=== PATIENT | female | born 1950 | race Caucasian/White ===

== ENCOUNTER 2021-07-17 15:47 | Emergency (ER) | payer MEDICARE, OTHER ==
[~2021-07-17] VITALS: Ht 157.5 cm; Wt 73.0 kg
[2021-07-17] MEDS ORDERED: CYCLOBENZAPRINE HCL 10 MG TABLET PO ONE (16:30)
[2021-07-17 17:06] VITALS: BP 161/79
[2021-07-17 17:14] LABS: APPEARANCE,URINE CLOUDY (CLEAR); BILIRUBIN,URINE NEGATIVE (NEGATIVE); COLOR,URINE YELLOW (YELLOW); GLUCOSE, URINE (UA) NEGATIVE (NEGATIVE); KETONES,URINE NEGATIVE (NEGATIVE); LEUKOCYTE ESTERASE ,URINE MODERATE (NEGATIVE); NITRATE,URINE NEGATIVE (NEGATIVE); OCCULT BLOOD,URINE TRACE-INTACT (NEGATIVE); PH,URINE 5.5 (5.0-8.0); PROTEIN,URINE NEGATIVE (NEGATIVE); UROBILINOGEN,URINE 0.2 mg/dL (0.2-1.0)
[2021-07-17 17:35] LABS: BACTERIA,URINE Moderate /HPF (None Seen); WBC,URINE >100 /HPF (0-1)
[2021-07-17 17:36] LABS: SQUAMOUS EPITHELIAL CELL,UR Rare /HPF (0-2)
[2021-07-17] MEDS ORDERED: CYCL10TA16 PO (17:46)
[2021-07-17] MEDS ORDERED: CEPH500B PO (17:46)
[2021-07-17] MEDS ORDERED: KETO10 PO (17:46)
[2021-07-17] MEDS ORDERED: CEFTRIAXONE 1G VIAL IM ONE (18:00)
[2021-07-17] MEDS ORDERED: CYCLOBENZAPRINE HCL 10 MG TABLET ONE (18:28)
[2021-07-17] MEDS ORDERED: HYDROCODONE/ACETAMINOPHEN 5/325 MG TAB PO ONE (18:30)
[2021-07-17] MEDS ORDERED: KETOROLAC 30MG VIAL (30MG/ML) IM ONE (18:30)
[2021-07-17] MEDS ORDERED: DEXAMETHASONE 4 MG TAB PO SCH (19:00)
[2021-07-17] MEDS ORDERED: CEFTRIAXONE 1G VIAL IVP ONE (19:00)
[2021-08-28] MEDS ORDERED: [UNRECOGNIZED DRUG - OTHER] PO (15:40)
[2021-08-28] MEDS ORDERED: CINN500C PO (15:40)
[2021-08-28] MEDS ORDERED: VITAMIN D2 PO (15:40)
[2021-08-28] MEDS ORDERED: OMEG-148 PO (15:40)
[2021-08-28] MEDS ORDERED: LOSA1TAB54 PO (15:40)
[2021-08-28] MEDS ORDERED: TUMERIC PO (15:40)
[2021-08-28] MEDS ORDERED: ATOR10 PO (15:40)
[2021-08-28] MEDS ORDERED: ATEN100T PO (15:40)
== END 2021-07-17 18:30 | disposition home or self-care (01) ==
LOC: EDH 15:47
DX: N39.0 Urinary tract infection, site not specified (principal); M47.816 Spondylosis without myelopathy or radiculopathy, lumbar region; M54.41 Lumbago with sciatica, right side; I10 Essential (primary) hypertension; E78.00 Pure hypercholesterolemia, unspecified
CPT/HCPCS: 72100; 81001; 87077; 87088; 87186; 96372; 96374; 99284; J0696; J1885; J8540

== ENCOUNTER 2021-08-29 05:35 | Observation (INO) | payer MEDICARE, OTHER ==
[2021-08-28 15:00] VITALS: BP 139/57
[2021-08-28 15:03] LABS: BASOPHILS % (AUTO) 0.8 % (0.0-5.0); EOSINOPHILS % (AUTO) 0.8 % (0.0-8.0); HEMATOCRIT 31.9 % (36-48); LYMPHOCYTES % (AUTO) 21.9 % (21.0-51.0); MEAN CORPUSCULAR HEMOGLOBIN 27.6 pg (27.0-33.0); MEAN CORPUSCULAR HGB CONC 32.6 g/dL (32.0-36.0); MEAN CORPUSCULAR VOLUME 84.6 fL (79-99); MONOCYTES % (AUTO) 8.4 % (3.0-13.0); NEUTROPHILS % (AUTO) 67.6 % (40.0-77.0); PLATELET COUNT (AUTO) 184 K/uL (130-400); RED BLOOD CELL COUNT(AUTO) 3.77 MIL/uL (4.00-5.50); RED CELL DISTRIBUTION WIDTH 14.7 % (11.0-15.5); WHITE BLOOD COUNT (AUTO) 6.3 K/uL (4.8-10.8)
[~2021-08-29] VITALS: Ht 162.6 cm; Wt 74.2 kg
[2021-08-29] VITALS (25 sets, daily range): BP systolic 118–169; BP diastolic 59–84
[~2021-08-29 05:35] MED LIST: ATEN100T PO; ATOR10 PO; CINN500C PO; LOSA1TAB54 PO; OMEG-148 PO; TUMERIC PO; VITAMIN D2 PO; [UNRECOGNIZED DRUG - OTHER] PO
[2021-08-29] MEDS ORDERED: LACTATED RINGERS 1000ML 1,000 ML IV ONE (05:45)
[2021-08-29] MEDS ORDERED: HYDR25TA PO (06:10)
[2021-08-29] MEDS ORDERED: LOSA100T58 PO (06:10)
[2021-08-29] MEDS ORDERED: LIDOCAINE PF 100MG/5ML (2%) SYRINGE 5ML ONE (06:21)
[2021-08-29] MEDS ORDERED: ROCURONIUM 10MG/1ML SYR 10 MG/ML ML ONE (06:22)
[2021-08-29] MEDS ORDERED: MIDAZOLAM HCL 1 MG/ML 2ML VIAL ONE (06:22)
[2021-08-29] MEDS ORDERED: FENTANYL CITRATE PF 50 MCG/1 ML 2ML VIAL ONE (06:22)
[2021-08-29] MEDS ORDERED: PROPOFOL 10 MG/ML 20ML VIAL IV ONE (06:22)
[2021-08-29] MEDS ORDERED: ONDANSETRON 4MG INJ ONE (06:22)
[2021-08-29] MEDS ORDERED: DEXAMETHASONE SOD PHOSPHATE 4 MG/ML 1ML VIAL ONE (07:19)
[2021-08-29] MEDS ORDERED: DEXAMETHASONE SOD PHOSPHATE 10MG/ML 1ML VIAL ONE (07:19)
[2021-08-29] MEDS ORDERED: MEPERIDINE-PF 25 MG/ML SYG ONE ×2 (07:43→09:00)
[2021-08-29] MEDS ORDERED: LACTATED RINGERS 1000ML 1,000 ML IV SCH (08:00)
[2021-08-29] MEDS ORDERED: GLYCOPYRROLATE 1 MG/5 ML SYRINGE ONE (08:09)
[2021-08-29] MEDS ORDERED: NEOSTIGMINE 5MG/5ML SYR IV ONE (08:09)
[2021-08-29] MEDS ORDERED: KETOROLAC 15MG/ML VIAL (15MG/ML) ONE (08:34)
[2021-08-29] MEDS ORDERED: MEPERIDINE-PF 75 MG/ML SYG IM PRN (10:00)
[2021-08-29] MEDS ORDERED: ONDANSETRON 4MG INJ IVP PRN (10:00)
[2021-08-29] MEDS ORDERED: PROMETHAZINE HCL 25 MG/ML 1ML AMPULE IM PRN ×2 (10:00)
[2021-08-29] MEDS ORDERED: IBUPROFEN 600 MG TABLET PO PRN (10:00)
[2021-08-29] MEDS ORDERED: BISACODYL 10 MG SUPP.RECT RC PRN (10:00)
[2021-08-29] MEDS: DEXTROSE 5 %-0.45 % NACL 1,000 ML IV PRN ×2 (10:15→18:04)
[2021-08-29] MEDS: ACETAMINOPHEN WITH CODEINE 1 TAB TAB PO PRN (19:41)
[2021-08-30] MEDS: ACETAMINOPHEN WITH CODEINE 1 TAB TAB PO PRN ×2 (00:39→08:14)
[2021-08-30] MEDS: DEXTROSE 5 %-0.45 % NACL 1,000 ML IV PRN (02:08)
[2021-08-30 04:30] VITALS: BP 125/63
[2021-08-30 06:59] LABS: HEMATOCRIT 30.1 % (36-48); MEAN CORPUSCULAR HEMOGLOBIN 27.2 pg (27.0-33.0); MEAN CORPUSCULAR HGB CONC 31.9 g/dL (32.0-36.0); MEAN CORPUSCULAR VOLUME 85.3 fL (79-99); RED BLOOD CELL COUNT(AUTO) 3.53 MIL/uL (4.00-5.50); RED CELL DISTRIBUTION WIDTH 14.7 % (11.0-15.5); WHITE BLOOD COUNT (AUTO) 9.9 K/uL (4.8-10.8)
[2021-08-30 07:40] VITALS: BP 153/76
[2021-08-30] MEDS: DOCUSATE SODIUM 100 MG CAP PO PRN ×2 (08:14→20:14)
[2021-08-30] MEDS: SIMETHICONE 80 MG TAB.CHEW PO PRN ×2 (08:14→20:14)
[2021-08-30] MEDS ORDERED: NACL NASAL SPRAY 120 SPRAY/BOTTLE NS PRN (08:30)
[2021-08-30] MEDS: LOSARTAN 100 MG TABLET PO SCH (09:02)
[2021-08-30] MEDS: HYDROCHLOROTHIAZIDE 25 MG TABLET PO SCH (09:02)
[2021-08-30] MEDS: FERROUS SULFATE 325 MG TABLET.DR PO SCH ×2 (09:03→20:14)
[2021-08-30 12:00] VITALS: BP 147/67
[2021-08-30] MEDS ORDERED: HYDROCODONE/ACETAMINOPHEN 5/325 MG TAB PO PRN (14:00)
[2021-08-30] MEDS ORDERED: ACETAMINOPHEN WITH CODEINE 1 TAB TAB PO PRN (14:00)
[2021-08-30] MEDS: IBUPROFEN 800 MG TAB PO PRN ×2 (14:13→20:17)
[2021-08-30 16:21] VITALS: BP 154/78
[2021-08-30 19:16] VITALS: BP 129/69
[2021-08-30] MEDS ORDERED: ATENOLOL 50 MG TABLET PO SCH (21:00)
[2021-08-30 23:06] VITALS: BP 116/56
[2021-08-31 03:51] VITALS: BP 125/61
[2021-08-31 07:40] VITALS: BP 137/71
[2021-08-31] MEDS ORDERED: NITROFURANTOIN MONOHYD/M-CRYST 100 MG CAPSULE PO SCH (09:00)
[2021-08-31] MEDS: LOSARTAN 100 MG TABLET PO SCH (09:01)
[2021-08-31] MEDS: FERROUS SULFATE 325 MG TABLET.DR PO SCH (09:01)
[2021-08-31] MEDS: DOCUSATE SODIUM 100 MG CAP PO PRN (09:01)
[2021-08-31] MEDS: SIMETHICONE 80 MG TAB.CHEW PO PRN (09:02)
[2021-08-31] MEDS: IBUPROFEN 800 MG TAB PO PRN (09:04)
[2021-08-31] MEDS: HYDROCHLOROTHIAZIDE 25 MG TABLET PO SCH (09:06)
[2021-08-31] MEDS ORDERED: ACET1TAB25 PO (09:20)
[2021-08-31] MEDS ORDERED: NITR100C4 PO (09:21)
[2021-08-31] MEDS ORDERED: FERR325T22 PO (09:21)
== END 2021-08-31 09:55 | disposition home or self-care (01) ==
LOC: DAH 05:35 → DAHIP 05:36 → WSH 09:10
PROVIDERS: ADMIT Obstetrics & Gynecology; ATTEND Obstetrics & Gynecology
DX: N39.3 Stress incontinence (female) (male) (principal); Z20.822 Contact with and (suspected) exposure to COVID-19; N81.10 Cystocele, unspecified; N81.6 Rectocele; N81.5 Vaginal enterocele; R68.89 Other general symptoms and signs
CPT/HCPCS: 36415 ×2; 57265; 85025; 85027; 86850; 86900; 86901; 87426; 88302; 88305; 96372; A4215; A4221; A4222; A4223; A4315; A4351; A4510; A4600; A4606; A4663; A6260; C1771; G0378 ×46; J1100; J1885; J2001; J2175 ×3; J2250; J2405; J2550; J2704; J2710; J3010; J3490; J7120 ×2

== ENCOUNTER → 2021-10-11 | Outpatient (CLI) | payer MEDICARE, OTHER ==
[~2021-10-11] MED LIST changes: +ACET1TAB25 PO; +FERR325T22 PO; +HYDR25TA PO; +LOSA100T58 PO; -LOSA1TAB54 PO; +NITR100C4 PO
== END | disposition home or self-care (01) ==
LOC: RAH 09:07
PROVIDERS: ATTEND Internal Medicine
DX: K44.9 Diaphragmatic hernia without obstruction or gangrene (principal); K21.9 Gastro-esophageal reflux disease without esophagitis
CPT/HCPCS: 74240

== ENCOUNTER 2023-12-21 03:15 | Inpatient (IN) | payer MEDICARE, OTHER ==
[~2023-12-21] VITALS: Ht 157.5 cm; Wt 75.8 kg
[2023-12-21] VITALS (7 sets, daily range): BP systolic 120–158; BP diastolic 56–76; PULSE 100–120; RESP 17–26; O2SAT 94–98
[~2023-12-21 03:15] MED LIST changes: +ACET-2079 PO; -ACET1TAB25 PO; -LOSA100T58 PO; +LOSA100T59 PO
[2023-12-21 03:40] LABS: BASOPHILS # (AUTO) 0.01 K/uL (0.00-0.20); BASOPHILS % (AUTO) 0.1 % (0.0-5.0); EOSINOPHILS # (AUTO) 0.01 K/uL (0.00-0.70); EOSINOPHILS % (AUTO) 0.1 % (0.0-8.0); LYMPHOCYTES # (AUTO) 1.6 K/uL (1.0-4.8); LYMPHOCYTES % (AUTO) 14.9 % (21.0-51.0); MEAN CORPUSCULAR HEMOGLOBIN 29.3 pg (27.0-33.0); MEAN CORPUSCULAR HGB CONC 32.2 g/dL (32.0-36.0); MEAN CORPUSCULAR VOLUME 91.1 fL (79-99); MONOCYTES # (AUTO) 0.4 K/uL (0.1-1.0); MONOCYTES % (AUTO) 3.9 % (3.0-13.0); NEUTROPHILS # (AUTO) 8.5 K/uL (1.8-7.7); NEUTROPHILS % (AUTO) 80.1 % (40.0-77.0); NUCLEATED RED BLOOD CELLS 0.3 % (0.0-0.19); PLATELET COUNT (AUTO) 159 K/uL (130-400); RED BLOOD CELL COUNT(AUTO) 1.57 MIL/uL (4.00-5.50); RED CELL DISTRIBUTION WIDTH 15.1 % (11.0-15.5); WHITE BLOOD COUNT (AUTO) 10.6 K/uL (4.8-10.8)
[2023-12-21 03:42] LABS: HEMATOCRIT 14.3 % (36-48)
[2023-12-21 03:48] LABS: ALBUMIN 2.2 g/dL (3.5-5.0); BILIRUBIN,TOTAL 0.1 mg/dL (0.2-1.0); CREATININE 1.4 mg/dL (0.5-1.0); TOTAL PROTEIN, SERUM 4.9 g/dL (6.0-8.3)
[2023-12-21] MEDS: PANTOPRAZOLE 40 MG/VIAL IVP ONE (03:56)
[2023-12-21] MEDS: PANTOPRAZOLE 40 MG/VIAL ONE (03:56)
[2023-12-21] MEDS: PANTOPRAZOLE 40MG INJ 80 MG in 0.9%NACL 100ML 100 ML IVP SCH (03:56)
[2023-12-21] MEDS: MORPHINE 2 MG SYG IVP ONE (04:50)
[2023-12-21] MEDS: MORPHINE 2 MG SYG ONE (04:59)
[2023-12-21] MEDS: DIAZEPAM 5 MG/ML 2 ML SYG IVP ONE (07:33)
[2023-12-21] MEDS ORDERED: ONDANSETRON 4MG INJ IV PRN (08:00)
[2023-12-21 08:42] LABS: ABG BASE EXCESS -10.5 mmol/L (-2.0-3.0); ABG HCO3 13.5 mmol/L (21.0-28.0); ABG OXYGEN SATURATION 96.2 % (95.0-99.0); ABG PCO2 26 mmHg (32-45); DEVICE COMMENT RR JESSE RN; PO2, ARTERIAL BG 87.1 mmHg (83.0-108.0); VENT MODE, BG RA (ROOM AIR)
[2023-12-21] MEDS ORDERED: PANTOPRAZOLE 40MG INJ 80 MG in 0.9%NACL 100ML 100 ML IV SCH (09:00)
[2023-12-21] MEDS ORDERED: LACTATED RINGERS 1000ML 1,000 ML IV SCH (09:00)
[2023-12-21 09:04] LABS: HEMATOCRIT 30.1 % (36-48)
[2023-12-21 09:07] LABS: RETICULOCYTE % (AUTO) 2.81 % (0.42-2.23)
[2023-12-21 09:15] LABS: HEMOGLOBIN A1C 6.6 % (4.0-6.0)
[2023-12-21 09:29] LABS: % IRON SATURATION 96.6 % (22-44)
[2023-12-21] MEDS ORDERED: COMPOUND IV REFRIGERATED 1 EACH IVSOLN MISC PRN (09:30)
[2023-12-21] MEDS: [UNRECOGNIZED DRUG - OTHER] IVP SCH (10:30)
[2023-12-21] MEDS: SODIUM BICARB IVP SCH (10:30)
[2023-12-21] MEDS: LORAZEPAM 2 MG/ML 1 ML VIAL IVP PRN (14:26)
[2023-12-21] MEDS ORDERED: DEXTROSE 50%-WATER 50 ML DISP.SYRIN IV PRN (15:30)
[2023-12-21] MEDS ORDERED: GLUCAGON 1MG KIT 1 MG ML IM PRN (15:30)
[2023-12-21 16:10] LABS: ABG BASE EXCESS -6.8 mmol/L (-2.0-3.0); ABG HCO3 15.3 mmol/L (21.0-28.0); ABG OXYGEN SATURATION 97.5 % (95.0-99.0); ABG PCO2 24 mmHg (32-45); PO2, ARTERIAL BG 94.2 mmHg (83.0-108.0); VENT MODE, BG RA (ROOM AIR)
[2023-12-21] MEDS: SODIUM BICARB 50MEQ 50ML VIAL IV ONE (16:26)
[2023-12-21] MEDS: INSULIN HUMULIN R 100 UNIT/ML 3ML SQ SCH (16:30)
[2023-12-21 17:06] LABS: BILIRUBIN,URINE NEGATIVE (NEGATIVE); GLUCOSE, URINE (UA) 70 mg/dL (NEGATIVE); KETONES,URINE NEGATIVE (NEGATIVE); LEUKOCYTE ESTERASE ,URINE 500 Leu/uL (NEGATIVE); NITRATE,URINE NEGATIVE (NEGATIVE); OCCULT BLOOD,URINE MODERATE (NEGATIVE); PH,URINE 5.5 (5.0-8.0); PROTEIN,URINE NEGATIVE (NEGATIVE); UROBILINOGEN,URINE 0.2 mg/dL (0.2-1.0)
[2023-12-21 17:09] LABS: AMMONIA < 10 umol/L (11-32); THYROID STIMULATING HORMONE 0.45 uIU/mL (0.36-3.74)
[2023-12-21 17:09] LABS: APPEARANCE,URINE HAZY (CLEAR)
[2023-12-21 17:10] LABS: ADD UA MICROSCOPIC YES; COLOR,URINE LIGHT-BROWN (YELLOW)
[2023-12-21 17:11] LABS: BACTERIA,URINE MANY /HPF (None Seen); MUCUS,URINE RARE LPF (None Seen); RBC,URINE 26-50 /HPF (0-1); SQUAMOUS EPITHELIAL CELL,UR RARE /HPF (0-2); WBC,URINE 26-50 /HPF (0-1)
[2023-12-21] MEDS ORDERED: MAGNESIUM 2GM PREMIX 50ML 50 ML IV PRN (18:00)
[2023-12-21] MEDS: MAGNESIUM 2GM PREMIX 50ML 50 ML IV ONE (18:02)
[2023-12-21] MEDS: OCTREOTIDE ACETATE 1,250 MCG in 0.9% NACL 250ML 250 ML IV SCH (18:30)
[2023-12-21] MEDS ORDERED: MEPERIDINE-PF 25 MG/ML SYG IVP PRN (19:30)
[2023-12-21] MEDS ORDERED: RENAL DOSE IV PRN (19:30)
[2023-12-21] MEDS ORDERED: ATOR20TA65 PO (19:50)
[2023-12-21] MEDS ORDERED: MELO-108 PO (19:50)
[2023-12-21] MEDS: ZOSYN 3.375GM +NS 50ML IV SCH (20:20)
[2023-12-21] MEDS: SODIUM BICARBONATE 650 MG TAB PO SCH (20:20)
[2023-12-21] MEDS: METOPROLOL TARTRATE 25 MG TAB PO SCH (20:20)
[2023-12-21] MEDS: 0.9% NACL 500ML IV.SOLN 500 ML IV ONE (21:19)
[2023-12-21 23:03] LABS: HEMATOCRIT 27.7 % (36-48)
[2023-12-22] VITALS (8 sets, daily range): BP systolic 131–160; BP diastolic 58–89; PULSE 71–105; RESP 18–19; O2SAT 98
[2023-12-22 04:59] LABS: HEMATOCRIT 24.1 % (36-48); MEAN CORPUSCULAR HEMOGLOBIN 28.9 pg (27.0-33.0); MEAN CORPUSCULAR HGB CONC 33.6 g/dL (32.0-36.0); MEAN CORPUSCULAR VOLUME 86.1 fL (79-99); NUCLEATED RED BLOOD CELLS 0.6 % (0.0-0.19); RED BLOOD CELL COUNT(AUTO) 2.8 MIL/uL (4.00-5.50); RED CELL DISTRIBUTION WIDTH 15.4 % (11.0-15.5); WHITE BLOOD COUNT (AUTO) 10.7 K/uL (4.8-10.8)
[2023-12-22 05:10] LABS: ALBUMIN 2.5 g/dL (3.5-5.0); BILIRUBIN,TOTAL 0.2 mg/dL (0.2-1.0); CREATININE 1.3 mg/dL (0.5-1.0); POTASSIUM 4.1 mmol/L (3.5-5.1); TOTAL PROTEIN, SERUM 5.5 g/dL (6.0-8.3)
[2023-12-22] MEDS: ACETAMINOPHEN 325 MG TAB PO PRN (05:44)
[2023-12-22] MEDS: 0.9%NACL 1000ML 1,000 ML IV SCH (09:30)
[2023-12-22] MEDS ORDERED: DEXTROSE 50%-WATER 50 ML DISP.SYRIN IV PRN (12:30)
[2023-12-22] MEDS ORDERED: HYDROXYZINE 25 MG TABLET PO PRN (12:30)
[2023-12-22] MEDS ORDERED: GLUCAGON 1MG KIT 1 MG ML IM PRN (12:30)
[2023-12-22] MEDS ORDERED: INSULIN HUMULIN R 100 UNIT/ML 3ML SQ SCH (16:30)
[2023-12-23] VITALS (8 sets, daily range): BP systolic 143–182; BP diastolic 67–94; PULSE 81–110; RESP 17–18; O2SAT 95
[2023-12-23 04:27] LABS: HEMATOCRIT 23.3 % (36-48); MEAN CORPUSCULAR HEMOGLOBIN 28.4 pg (27.0-33.0); MEAN CORPUSCULAR HGB CONC 32.6 g/dL (32.0-36.0); MEAN CORPUSCULAR VOLUME 86.9 fL (79-99); NUCLEATED RED BLOOD CELLS 0.9 % (0.0-0.19); RED BLOOD CELL COUNT(AUTO) 2.68 MIL/uL (4.00-5.50); WHITE BLOOD COUNT (AUTO) 8.1 K/uL (4.8-10.8)
[2023-12-23] MEDS: PANTOPRAZOLE 40 MG TAB DR PO SCH (09:32)
[2023-12-23] MEDS: HYDRALAZINE 20MG/ML VIAL IV PRN (09:54)
[2023-12-23 10:07] LABS: ABG BASE EXCESS 0.3 mmol/L (-2.0-3.0); ABG HCO3 23.4 mmol/L (21.0-28.0); ABG OXYGEN SATURATION 98.2 % (95.0-99.0); ABG PCO2 34 mmHg (32-45); ABG PH 7.461 (7.35-7.450); VENT MODE, BG 1LNC (ROOM AIR)
[2023-12-23 11:11] LABS: ANTI-SCLERODERMA 70 <0.2 AI (0.0-0.9)
[2023-12-23] MEDS: MAGNESIUM OXIDE 400 MG TABLET PO SCH (13:05)
[2023-12-23] MEDS: GABAPENTIN 100 MG CAPSULE PO SCH (13:05)
[2023-12-23] MEDS: ATORVASTATIN 20 MG TABLET PO SCH (20:52)
[2023-12-24] VITALS (8 sets, daily range): BP systolic 139–171; BP diastolic 59–74; PULSE 78–104; RESP 17–20; O2SAT 96–99
[2023-12-24 05:59] LABS: HEMATOCRIT 23.5 % (36-48); MEAN CORPUSCULAR HEMOGLOBIN 29.4 pg (27.0-33.0); MEAN CORPUSCULAR HGB CONC 32.8 g/dL (32.0-36.0); MEAN CORPUSCULAR VOLUME 89.7 fL (79-99); NUCLEATED RED BLOOD CELLS 0.4 % (0.0-0.19); RED BLOOD CELL COUNT(AUTO) 2.62 MIL/uL (4.00-5.50); RED CELL DISTRIBUTION WIDTH 15.9 % (11.0-15.5); WHITE BLOOD COUNT (AUTO) 5.3 K/uL (4.8-10.8)
[2023-12-24 06:20] LABS: CREATININE 0.9 mg/dL (0.5-1.0); MAGNESIUM 1.7 mg/dL (1.80-2.40); PHOSPHORUS 2.7 mg/dL (2.5-4.9); POTASSIUM 3.2 mmol/L (3.5-5.1)
[2023-12-24 07:22] LABS: RHEUMATOID ARTHRITIS FACTOR 10.1 IU/mL (<14.0)
[2023-12-24] MEDS: LOSARTAN 100 MG TABLET PO SCH (08:55)
[2023-12-24] MEDS: HYDROCHLOROTHIAZIDE 25 MG TABLET PO SCH (08:55)
[2023-12-24 11:14] LABS: MYOGLOBIN, SERUM 275 ng/mL (25-58)
[2023-12-24] MEDS ORDERED: MAGNESIUM 2GM PREMIX 50ML 50 ML IV SCH (14:30)
[2023-12-24] MEDS: KCL 20 MEQ ERTAB PO ONE (14:30)
[2023-12-24] MEDS: MAGNESIUM 2GM PREMIX 50ML 50 ML IV SCH (20:01)
[2023-12-24] MEDS: ACETAMINOPHEN WITH CODEINE 1 TAB TAB PO PRN (20:48)
[2023-12-25 04:12] VITALS: BP 144/68; PULSE 91; RESP 18
[2023-12-25 06:44] LABS: BASOPHILS # (AUTO) 0.02 K/uL (0.00-0.20); BASOPHILS % (AUTO) 0.4 % (0.0-5.0); EOSINOPHILS # (AUTO) 0.09 K/uL (0.00-0.70); EOSINOPHILS % (AUTO) 1.7 % (0.0-8.0); HEMATOCRIT 24.3 % (36-48); IMMATURE GRANULOCYTE ABSOLUTE 0.04 K/uL (0-1); LYMPHOCYTES # (AUTO) 1.3 K/uL (1.0-4.8); LYMPHOCYTES % (AUTO) 25.4 % (21.0-51.0); MEAN CORPUSCULAR HEMOGLOBIN 28.7 pg (27.0-33.0); MEAN CORPUSCULAR HGB CONC 32.5 g/dL (32.0-36.0); MEAN CORPUSCULAR VOLUME 88.4 fL (79-99); MONOCYTES # (AUTO) 0.4 K/uL (0.1-1.0); MONOCYTES % (AUTO) 8.3 % (3.0-13.0); NEUTROPHILS # (AUTO) 3.3 K/uL (1.8-7.7); NEUTROPHILS % (AUTO) 63.4 % (40.0-77.0); PLATELET COUNT (AUTO) 110 K/uL (130-400); RED BLOOD CELL COUNT(AUTO) 2.75 MIL/uL (4.00-5.50); RED CELL DISTRIBUTION WIDTH 16.2 % (11.0-15.5); WHITE BLOOD COUNT (AUTO) 5.3 K/uL (4.8-10.8)
[2023-12-25 06:47] LABS: MAGNESIUM 1.9 mg/dL (1.80-2.40); PHOSPHORUS 2.9 mg/dL (2.5-4.9); POTASSIUM 3.5 mmol/L (3.5-5.1)
[2023-12-25 08:00] VITALS: BP 153/66; PULSE 90; RESP 17
[2023-12-25 08:31] VITALS: TEMP 98.1
[2023-12-25] MEDS: ACETAMINOPHEN 325 MG TAB PO PRN (08:31)
[2023-12-25 10:35] VITALS: O2SAT 96
[2023-12-25 12:00] VITALS: BP 140/67; PULSE 92; RESP 19
[2023-12-25] MEDS ORDERED: PANT40TA PO (12:24)
[2023-12-25] MEDS ORDERED: INVOK100TB PO (12:24)
[2023-12-25] MEDS ORDERED: LINA5TAB PO (12:24)
[2023-12-26 13:13] LABS: ATYPICAL P-ANCA AB <1:20 titer (Neg:<1:20); CYTOPLASMIC (C-ANCA) AB, IGG <1:20 titer (Neg:<1:20)
== END 2023-12-25 15:00 | disposition home or self-care (01) | DRG 377 ==
LOC: EDH 03:15 → EDHIP 07:41 → 2CV 10:41 → 4CH 21:45
PROVIDERS: ADMIT Internal Medicine; ATTEND Internal Medicine
PROC: 30233N1 Transfusion of Nonautologous Red Blood Cells into Peripheral Vein, Percutaneous Approach (ICD-10-PCS; principal; 2023-12-21)
DX: K92.2 Gastrointestinal hemorrhage, unspecified (principal); E43 Unspecified severe protein-calorie malnutrition; G93.41 Metabolic encephalopathy; J96.00 Acute respiratory failure, unspecified whether with hypoxia or hypercapnia; R65.11 Systemic inflammatory response syndrome (SIRS) of non-infectious origin with acute organ dysfunction; N17.9 Acute kidney failure, unspecified; N30.00 Acute cystitis without hematuria; D62 Acute posthemorrhagic anemia; E87.1 Hypo-osmolality and hyponatremia; E87.21 Acute metabolic acidosis; K44.9 Diaphragmatic hernia without obstruction or gangrene; E83.42 Hypomagnesemia; G25.81 Restless legs syndrome; R21 Rash and other nonspecific skin eruption; M25.511 Pain in right shoulder; B96.1 Klebsiella pneumoniae [K. pneumoniae] as the cause of diseases classified elsewhere; E11.22 Type 2 diabetes mellitus with diabetic chronic kidney disease; E11.65 Type 2 diabetes mellitus with hyperglycemia; E78.00 Pure hypercholesterolemia, unspecified; E86.0 Dehydration; I12.9 Hypertensive chronic kidney disease with stage 1 through stage 4 chronic kidney disease, or unspecified chronic kidney disease; N18.9 Chronic kidney disease, unspecified; K21.9 Gastro-esophageal reflux disease without esophagitis; Z87.11 Personal history of peptic ulcer disease; Z79.899 Other long term (current) drug therapy; Z68.30 Body mass index [BMI] 30.0-30.9, adult
CPT/HCPCS: 36415; 36600; 71045; 76770; 80048; 80053; 81001; 82010; 82140; 82270; 82550; 82607; 82728; 82803; 82948; 83036; 83516; 83605; 83615; 83630; 83735; 83874; 83880; 84100; 84145; 84439; 84443; 84481; 84484; 85014; 85018; 85025; 85027; 85378; 85651; 85732; 86038; 86140; 86215; 86235; 86255; 86431; 86850; 86900; 86901; 86923; 87046; 87077; 87088; 87177; 87186; 87324; 87338; 93005; 93970; 96365; A4344; C9113; G0378; J0360; J1815; J2060; J2270; J2354; J2543; J3360; J3475; J3490; J7030; J7050; P9016

== ENCOUNTER → 2024-02-24 | Outpatient (CLI) | payer MEDICARE, OTHER ==
[~2024-02-24] MED LIST changes: +ATOR20TA65 PO; +INVOK100TB PO; +LINA5TAB PO; -NITR100C4 PO; +PANT40TA PO
== END | disposition home or self-care (01) ==
LOC: RAH 10:36
PROVIDERS: ATTEND Surgery
DX: K44.9 Diaphragmatic hernia without obstruction or gangrene (principal); K21.9 Gastro-esophageal reflux disease without esophagitis
CPT/HCPCS: 74220

== ENCOUNTER 2024-05-07 08:35 | Observation (INO) | payer MEDICARE, OTHER ==
[2024-05-05 14:15] VITALS: BP 144/71; PULSE 72; RESP 19; TEMP 98
[2024-05-05 14:28] LABS: BASOPHILS # (AUTO) 0.03 K/uL (0.00-0.20); BASOPHILS % (AUTO) 0.4 % (0.0-5.0); EOSINOPHILS % (AUTO) 1.3 % (0.0-8.0); HEMATOCRIT 36.8 % (36-48); IMMATURE GRANULOCYTE ABSOLUTE 0.03 K/uL (0-1); LYMPHOCYTES # (AUTO) 1.9 K/uL (1.0-4.8); LYMPHOCYTES % (AUTO) 24.1 % (21.0-51.0); MEAN CORPUSCULAR HGB CONC 31.5 g/dL (32.0-36.0); MEAN CORPUSCULAR VOLUME 82.3 fL (79-99); MONOCYTES # (AUTO) 0.5 K/uL (0.1-1.0); MONOCYTES % (AUTO) 5.7 % (3.0-13.0); NEUTROPHILS # (AUTO) 5.4 K/uL (1.8-7.7); NEUTROPHILS % (AUTO) 68.1 % (40.0-77.0); PLATELET COUNT (AUTO) 200 K/uL (130-400); RED BLOOD CELL COUNT(AUTO) 4.47 MIL/uL (4.00-5.50); RED CELL DISTRIBUTION WIDTH 16.2 % (11.0-15.5); WHITE BLOOD COUNT (AUTO) 7.9 K/uL (4.8-10.8)
[2024-05-05 14:46] LABS: CREATININE 1.6 mg/dL (0.5-1.0); POTASSIUM 4.7 mmol/L (3.5-5.1)
--- NOTE | 2024-05-06 06:54 | EKG ---
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
[2024-05-07] VITALS (26 sets, daily range): BP systolic 138–192; BP diastolic 64–88; PULSE 59–90; RESP 9–19; TEMP 96.8–98.1; O2SAT 95–99
[~2024-05-07] VITALS: Ht 157.5 cm; Wt 76.3 kg
--- NOTE | 2024-05-07 01:50 | NUR ---
Pt. assisted to chair @ this time, made comfortable, tolerated well, call-light within easy reach; daughter @ side.
[~2024-05-07 08:35] MED LIST changes: -ACET-2079 PO; -ATOR10 PO; -CINN500C PO; -FERR325T22 PO; +IBAN150T21 PO; -LINA5TAB PO; -OMEG-148 PO; -PANT40TA PO; +PANT40TA54 PO; +SUCR1TAB2 PO; -TUMERIC PO; -VITAMIN D2 PO
[2024-05-07] MEDS: ceFAZolin SODIUM 2 GM VIAL ONE (09:45)
[2024-05-07] MEDS: 0.9%NACL 1000ML 1,000 ML IV ONE (09:45)
[2024-05-07 10:00] LABS: INR 1.07 (0.85-1.15); PROTHROMBIN TIME 11.5 SEC (9.6-11.6)
[2024-05-07 10:01] LABS: PARTIAL THROMBOPLASTIN TIME 25.1 SEC (26.3-35.5)
[2024-05-07] MEDS: acetaMINOPHEN 1,000 MG/100 ML VIAL IV ONE (10:30)
[2024-05-07] MEDS: FAMOTIDINE 20MG VIAL IV ONE (10:30)
[2024-05-07] MEDS: INDOCYANINE GREEN 25 MG VIAL IJ ONE (11:34)
[2024-05-07] MEDS ORDERED: BUPIvacaine/PF 0.5% 30ML VIAL ONE (11:36)
[2024-05-07] MEDS ORDERED: ketaMINE 50MG/ML SYRINGE 50 MG/ML DISP.SYRIN ONE (12:00)
[2024-05-07] MEDS ORDERED: rocuRONium bROMide 10MG/1ML 5ML VL ONE (12:01)
[2024-05-07] MEDS ORDERED: proPOFol 10 MG/ML 20ML VIAL IV ONE (12:01)
[2024-05-07] MEDS ORDERED: LIDOCAINE PF 100MG/5ML (2%) SYRINGE 5ML ONE (12:01)
[2024-05-07] MEDS ORDERED: FENTanyl CITRate PF 50 MCG/1 ML 2ML VIAL ONE (12:01)
[2024-05-07] MEDS ORDERED: dexaMETHasone SOD PHOSPHATE 10MG/ML 1ML VIAL ONE (12:24)
[2024-05-07] MEDS ORDERED: ondanSETRON 4MG INJ ONE (12:24)
[2024-05-07] MEDS: ceFAZolin SODIUM 2 GM VIAL IVPB ONE (12:30)
[2024-05-07] MEDS ORDERED: phenylEPHRINE HCL 10 MG/ML 1ML VIAL IV ONE (12:31)
[2024-05-07] MEDS ORDERED: GLYCOPYRROLATE 0.2 MG/ML 5 ML VIAL ONE (14:25)
[2024-05-07] MEDS ORDERED: NEOSTIGMINE METHYLSULFATE 1MG/ML IV ONE (14:25)
[2024-05-07] MEDS: ENOXAPARIN SODIUM 30 MG/0.3 ML SQ SCH (14:30)
[2024-05-07] MEDS ORDERED: ondanSETRON 4MG INJ IVP PRN (14:30)
[2024-05-07] MEDS ORDERED: HYDROcod/acetaMINOPHEN 7.5/325 MG 15 ML UDCUP PO PRN (14:30)
[2024-05-07] MEDS ORDERED: PROCHLORPERAZINE 10MG/2ML INJ IV PRN (14:30)
[2024-05-07] MEDS ORDERED: hydroMORPHone 1 MG INJ IVP PRN (14:30)
--- NOTE | 2024-05-07 14:43 | PN ---
GENERAL SURGERY PROGRESS NOTE Date/Time Patient Seen: [05/07/24 3725] Problem List: [ ] Interval History: [POD 0. S/p Paraesophageal hernia repair w mesh and edg. Pain tolerable. ] Physical Examination: ABD exam: incisions clean and dry, Dermabond in place Vital Signs (last 8hr) Date Time Temp Pulse Resp B/P (MAP) Pulse Ox O2 Delivery O2 Flow Rate FiO2 05/07/24 09:05 96.8 67 16 138/72 98 Room Air Laboratory: [ ] Chemistry Labs: Test 05/07/24 09:02 Range/Units Whole Blood Glucose 250 H 70-110 MG/DL Coagulation Labs: Test 05/07/24 09:36 Range/Units Prothrombin Time 11.5 9.6-11.6 SEC Prothromb Time International Ratio 1.07 0.85-1.15 Activated Partial Thromboplast Time 25.1 L 26.3-35.5 SEC Diagnostics / Radiology: [Copy/Paste Echos/Imaging Report here] Impression and Plan: [ Plan is for d/c home in the next day or 2. ] SELINA CHAMORRO May 07, 2024 14:43
--- NOTE | 2024-05-07 14:52 | OP ---
Operative Note: DATE OF PROCEDURE: 05/07/24 SURGEON: RUSSEL CHAMORRO MD FELTMAKER: Bernardo Chamorro MD p.a. 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 Luis fundoplication also performed. PROCEDURE: 1. Robotic assisted paraesophageal hiatal hernia repair with mesh reinforcement 2. Luis type fundoplication 3. EGD ESTIMATED BLOOD LOSS: Minimal, less than 30 cc INDICATIONS: As above DESCRIPTION OF PROCEDURE: After standard precautions and preparations were undertaken a Veress needle and optical trocar were used to enter the abdominal cavity. All other instruments were placed under direct vision. The robotic system was docked in the standard fashion. We are able to easily identify the large hiatal hernia immediately upon entry into the abdominal cavity. After retracting the liver we were able to opened pars flaccida and identifying the right vi of the diaphragm. We used this as an anatomic landmark in order to enter the mediastinum. We entered into a plane of nearly avascular tissue and began to circumferentially mobilize and reduce the distal esophagus and proximal stomach from the hernia. Patient had a large paraesophageal hernia sac which included the majority of the fundus and cardia of the stomach. Once the tissues were freed up the GE junction was resting at the level of the hiatus. We could not safely mobilize any further up into the chest to get any further length on the esophagus. The hernia defect was excessively large greater than 10 cm in diameter. Once the right and left crura were free of attachments down to the crossing fibers we began our hiatal hernia repair first with a sutured closure of the hiatus. We started at the crossing fibers and worked our way upwards towards the posterior esophageal wall. Care was taken not to over tighten. Due to the excessively large diameter of the hernia defect we had to close both in a vertical and horizontal planes. Once we reapproximated the hiatal tissue as best we could to get near physiologic closure around the distal esophagus we placed our mesh. The mesh was cut into a horseshoe fashion and placed as an overlay over our crural repair. The mesh was sutured in place to maximize tissue contact to minimize the chance of mesh migration. We then performed a fundoplication by mobilizing the upper fundus and pulling in through the retroesophageal window. This was wrapped 360 circumferentially. We sutured the fundoplication for a distance of at least 4 cm. Throughout the case my partner was utilizing the EGD scope to verify appropriate anatomic landmarks including the GE junction. At the end of the case he was able to verify that the GE junction was below the level of the hiatus and that the wrap was not overly tightened. Retroflexed view demonstrated that the wrap was in a good location and the mucosal surface indicated no sign of trauma or injury. The distal esophagus was also examined in detail and not found to have any sign of injury or problem. Prior to ending the case all instrument counts were verified as correct including needles and sponges. Patient tolerated the procedure well and was taken to PACU in stable condition. RUSSEL CHAMORRO MD May 07, 2024 14:52
[2024-05-07] MEDS: metoPROLOL tartRATE 1 MG/ML 5ML VIAL IV ONE (15:31)
[2024-05-07] MEDS: FENTanyl CITRate PF 50 MCG/1 ML 2ML VIAL ONE (15:32)
[2024-05-07] MEDS: SUGAMMADEX SODIUM 200 MG/2 ML VIAL IV ONE (15:33)
[2024-05-07] MEDS: ketOROlac 15MG/ML VIAL (15MG/ML) ONE (16:08)
[2024-05-07] MEDS: hydroMORPHone 1 MG INJ ONE (16:09)
[2024-05-07] MEDS: LACTATED RINGERS 1000ML 1,000 ML IV SCH (16:45)
--- NOTE | 2024-05-07 16:57 | CONS ---
[facility] CONSULTATION NOTE Date of Service: May 07, 2024 Reason for Consultation: Medical management Requesting Physician: Tyler Elena HISTORY OF PRESENT ILLNESS: 73-year-old female with past medical history of type 2 diabetes, hypertension, dysphagia, hiatal hernia, who was admitted to [facility] ED earlier today for elective paraesophageal hernia repair. Patient having successful robotic assisted hiatal hernia repair with mesh reinforcement, Luis fundoplication performed by Dr. Elena earlier today. Patient tolerated procedure well, postoperatively transferred to [facility] for continued observation and management. Patient has been noted with some elevated blood pressure readings, SBP in the 160s 170s range. Patient has been given dosage of IV Lopressor, SBP now in the 150s. Patient denied chest pain, shortness breath, fever or chills. Patient denies nausea vomiting. Hospitalist team has been called on consult for medical management. REVIEW OF SYSTEMS CONSTITUTIONAL: Denies fevers, chills, or night sweats. No unintentional weight loss reported. NEUROLOGICAL: Denies headache, amaurosis fugax, motor weakness, sensory deficit, vertigo/spinning sensation, gait abnormalities, or tremors. ENT: No hearing loss, otalgia, otorrhea, rhinitis, rhinorrhea, hoarseness, or sore throat. CARDIOVASCULAR: Denies any exertional angina, dyspnea on exertion, orthopnea, paroxysmal nocturnal dyspnea, palpitations, life-threatening arrhythmias, claudication. PULMONARY: Denies any shortness of breath, cough, phlegm/sputum, hemoptysis, pleuritic chest pain. SLEEP: Denies morning headaches, daytime somnolence or napping. Denies difficulty falling asleep, staying asleep, waking from sleep. Denies knowledge of snoring. GASTROINTESTINAL: As mentioned in HPI GENITOURINARY: Denies frequency, urgency, nocturia, hematuria or incontinence (Storage/Irritative symptoms.) Low urinary stream, straining to void, urinary intermittency or hesitancy, splitting of the voiding stream, terminal dribbling. ENDOCRINOLOGIC: Denies polyuria, polydipsia, polyphagia or heat/cold intolerances. HEMATOLOGIC: Denies thrombophilia/previous clots, or coagulopathy/bleeding disorders. ONCOLOGIC: Denies personal history of malignancy. DERMATOLOGIC: Denies rashes or pruritus. PSYCHIATRIC: Denies any suicidal or homicidal ideation. Denies hallucinations. PAST MEDICAL HISTORY: As mentioned in HPI PAST SURGICAL HISTORY: As mentioned above PAST SOCIAL HISTORY: No tobacco no alcohol no substance abuse FAMILY HISTORY: Noncontributory Coded Allergies: No Known Drug Allergies (Unverified Allergy, Unknown, 07/17/21) PHYSICAL EXAM GENERAL APPEARANCE: The patient is awake, alert, and oriented, in no acute cardiopulmonary distress. NEUROLOGICAL: Cranial nerves II-XII grossly intact. Motor is 5/5 in bilateral upper and lower extremities proximal to distal. No sensory deficits. HEENT: Face is symmetric. Pupils are equal and reactive. Extraocular movements are intact. NECK: Supple. No JVD. No thyromegaly. No submental, submandibular, pre- /postauricular, occipital or supraclavicular lymphadenopathy. CHEST: Normal chest expansion. No Telemetry. LUNGS: Absence of any rales, rhonchi or any wheezing. CARDIOVASCULAR: Regular. S1 and S2 normal. No appreciable rubs, murmurs or gallops. ABDOMEN: Soft, bowel sounds positive. Postop wounds, clean dressings applied. : Deferred. No Miner. EXTREMITIES: Non-edematous and not cyanotic. No clubbing. Good capillary refill. SKIN: No skin breakdown. Vital Sign (Last 24 Hours) 05/07/24 05/07/24 14:55 16:10 Temp 97.2 Pulse 80 Resp 12 B/P (MAP) 153/64 Pulse Ox 99 O2 Delivery Nasal Cannula O2 Flow Rate 2.0 FiO2 24 LABS: Laboratory: Test 05/07/24 15:43 05/07/24 09:36 Range/Units Whole Blood Glucose 208 H 70-110 MG/DL Prothrombin Time 11.5 9.6-11.6 SEC Prothromb Time International Ratio 1.07 0.85-1.15 Activated Partial Thromboplast Time 25.1 L 26.3-35.5 SEC DIAGNOSTICS / RADIOLOGY: [ ] ASSESSMENT: Large hiatal hernia, status post paraesophageal hiatal hernia repair, with mesh reinforcement and Luis fundoplication, 05/07/2024 ALEXANDRU Hyponatremia Essential hypertension Type 2 diabetes PLAN: Continue admission to medical/surgical floor under hospitalist, and Surgical teams Obtain home medications, reconcile and resume accordingly Patient is status post successful paraesophageal hiatal hernia repair on 05/07/2024. Continue pain control. Follow up with surgical team. Continue IVF, LR at 125 mL/hour. Patient to be initiated on CLD, advance per surgical team recommendations Pepcid for GI prophylaxis Lovenox for DVT prophylaxis P.r.n. medications for fever, pain, nausea, constipation Follow-up a.m. labs Further orders per hospital course ADVANCED CARE PLANNING 1. Which of the following were discussed? Hospice Care - No Therapeutic options - Yes Advance Directives - Yes Other discussions - 2. Discussed with who? The patient 3. Voluntary nature of this service was explained to the patient? Yes 4. Amount of time spent - ___ 20 minutes ____ 5. Reviewed by Physician? (if this service was performed by NPP) Yes WESLEY MCDANIELS May 07, 2024 16:57
[2024-05-07] MEDS ORDERED: GLUCAGON 1MG KIT 1 MG ML IM PRN (17:00)
[2024-05-07] MEDS ORDERED: DEXTROSE 50%-WATER 50 ML DISP.SYRIN IV PRN (17:00)
[2024-05-07] MEDS: SUCRALFATE 1 GM TABLET PO SCH (17:00)
[2024-05-07 17:46] LABS: HEMOGLOBIN A1C 8.7 % (4.0-6.0)
[2024-05-07] MEDS: hydrALAZine 20MG/ML VIAL IV PRN (18:08)
[2024-05-07] MEDS: FAMOTIDINE 20MG VIAL IV SCH (20:44)
[2024-05-07] MEDS: ATENOLOL 50 MG TABLET PO SCH (20:45)
[2024-05-07] MEDS: INSULIN humuLIN R 100 UNIT/ML 3ML SQ SCH (20:49)
[2024-05-07] MEDS: atorVAStatin 20 MG TABLET PO SCH (20:50)
--- NOTE | 2024-05-07 21:00 | NUR ---
Pt. up to chair with assistance @ this time, made comfortable, tolerated well, call-light within easy reach; daughter @ side.
[2024-05-07] MEDS: ketOROlac 30MG VIAL (30MG/ML) IV PRN (21:09)
[2024-05-08] VITALS: BP 158/77; PULSE 85; RESP 20; TEMP 98.4
[2024-05-08 04:00] VITALS: BP 151/94; PULSE 93; RESP 18; TEMP 98.7
[2024-05-08 04:50] LABS: CREATININE 1.4 mg/dL (0.5-1.0); POTASSIUM 4.8 mmol/L (3.5-5.1)
--- NOTE | 2024-05-08 06:48 | NUR ---
Pt. refuses to have bed alarm on, importance of it explained, reinforced fall prevention/precautions; still refuses to have bed alarm on.
[2024-05-08 07:49] VITALS: BP 158/75; PULSE 82; RESP 18; TEMP 98.6
--- NOTE | 2024-05-08 07:50 | EKG ---
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
[2024-05-08 08:15] VITALS: O2SAT 99
[2024-05-08] MEDS: PANTOPrazole 40 MG TAB DR PO SCH (08:39)
--- NOTE | 2024-05-08 09:01 | PN ---
GENERAL SURGERY PROGRESS NOTE Date/Time Patient Seen: [May 08, 2024 at 8:30 a.m. ] Problem List: [ ] Interval History: [POD 1. S/p Paraesophageal hernia repair w mesh, EGD and core needle liver biopsy. Patient is awake alert and oriented x3 and sitting comfortably. Family present in the room. The patient is not in acute distress. The patient endorses pain that is tolerable with p.r.n. medications. The patient is tolerating a clear liquid diet slowly. Reports some slow passage of fluid consi stent with surgery. The patient has been ambulating, voiding freely, and passing gas. Vital signs are stable this morning. Incisions are clean and dry and well approximated. Appropriate tenderness to palpation with regular bowel sounds. Internal medicine on board managing blood pressure and blood glucose very well. The patient is overall happy with the procedure and is ready to go home today.] Current Medications Medications (Trade) Dose Ordered Sig/Kunal Route Start Time Stop Time Status Last Admin Dose Admin Atenolol (Atenolol) 100 mg HS PO 05/07/24 21:00 06/06/24 20:59 05/07/24 20:45 100 MG Atorvastatin Calcium (LIPItor 20MG) 20 mg HS PO 05/07/24 21:00 06/06/24 20:59 05/07/24 20:50 20 MG Enoxaparin Sodium (Lovenox) 30 mg Q24H SQ 05/07/24 14:30 06/06/24 14:29 Famotidine (Pepcid 20mg Vial) 20 mg Q48H IV 05/07/24 21:00 06/06/24 20:59 05/07/24 20:44 20 MG Home Med (Home Medication) [Znb-Nig-Rnawv Acid] 1 TAB HS PO 05/07/24 21:00 06/06/24 20:59 Insulin Human Regular (humuLIN R 100 UNIT/ML 3ML) INSULIN SLIDING SCAL... ACHS SQ 05/07/24 21:00 06/06/24 20:59 05/07/24 20:49 4 UNIT Lactated Ringer's 1,000 ml @ 125 mls/hr Q8H IV 05/07/24 14:30 06/06/24 14:29 05/07/24 16:45 125 MLS/HR Pantoprazole Sodium (PROTonix 40MG TAB) 40 mg DAILY PO 05/08/24 09:00 06/07/24 08:59 05/08/24 08:39 40 MG Sucralfate (Carafate) 1 gm QID PO 05/07/24 17:00 06/06/24 16:59 05/08/24 08:39 1 GM Physical Examination: GENERAL: [No acute distress.] HEAD: [Normal with no signs of head trauma.] EYES: [PERRLA, EOMI, conjunctiva and sclera normal.] ENT: [Hearing grossly intact, normal oropharynx.] NECK: [Supple without JVD. There is no tenderness, lymphadenopathy, or masses. No thyromegaly. Normal carotid upstrokes without bruits.] LUNGS: [Clear breath sounds bilaterally. There are right basilar rales one third of the way up the chest. No wheezes, or rhonchi.] HEART: [Normal rate and rhythm. Normal S1 and S2 without mumurs, gallop or rub.] VASC: [Peripheral pulses +2 bilaterally.] ABD: [Bowel sounds normal, soft, nontender, no masses, no organomegaly. No audible bruits.] : [Not examined] LYMPH: [No lymphadenopathy noted.] EXT: [No clubbing, cyanosis or edema.] SKIN: [No rashes or lesions noted.] NEURO: [Awake, alert, and oriented x3. No focal sensory or strength deficits noted.] Vital Signs (last 8hr) Date Time Temp Pulse Resp B/P (MAP) Pulse Ox O2 Delivery O2 Flow Rate FiO2 05/08/24 07:49 98.6 82 18 158/75 96 Room Air 0.0 05/08/24 04:00 98.8 93 18 151/94 97 Room Air Laboratory: [ ] Chemistry Labs: Test 05/08/24 05:33 05/08/24 04:08 05/07/24 18:12 05/07/24 17:20 Range/Units Whole Blood Glucose 156 H 70-110 MG/DL Sodium Level 139 136-145 mmol/L Potassium Level 4.8 3.5-5.1 mmol/L Chloride Level 107 101-111 mmol/L Carbon Dioxide Level 20 L 21-32 mmol/L Blood Urea Nitrogen 26 H 7-18 mg/dL Creatinine 1.4 H 0.5-1.0 mg/dL Glomerular Filtration Rate Calc 40 >90 mL/min Random Glucose 163 H 70-105 mg/dL Total Calcium 8.8 8.5-10.1 mg/dL Troponin I High Sensitivity 5 4-50 ng/L Hemoglobin A1c 8.7 H 4.0-6.0 % Estimated Average Glucose (eAG) 203 H 70-126 mg/dL Coagulation Labs: Test 05/07/24 09:36 Range/Units Prothrombin Time 11.5 9.6-11.6 SEC Prothromb Time International Ratio 1.07 0.85-1.15 Activated Partial Thromboplast Time 25.1 L 26.3-35.5 SEC Impression and Plan: [Postoperative day one. Patient is progressing well. We will continue to monitor and treat pain as needed. GI/DVT prophylaxis recommended encouraged. The patient may continue to full liquid diet upon discharge. May restart home medications. Incision care, hydration, activity and dietary restrictions discussed with the patient. The patient understands and agrees. The patient is cleared from surgical perspective to go home today. We will follow Internal Medicine recommendations for discharge.] SELVIN HOROWITZ May 08, 2024 09:01
--- NOTE | 2024-05-08 11:45 | NUR ---
NOTE PATIENT DISCHARGED HOME BUT SHE DID NOT WAIT FOR INSTRUCTIONS. CALLED PATIENT AT HOME AND WENT OVER INSTRUCTIONS. SHE SAID SHE THOUGHT WE HAD EXPLAINED EVERYTHING AND SHE TOLD THE CLINICAL PRODUCT SPECIALIST TO TAKE HER DOWN. VERBALIZED UNDERSTANDING OF WHAT WAS DISCUSSED.
--- NOTE | 2024-05-08 12:25 | DS ---
Discharge Summary Hospital Course Summary: 05/07/24: 73-year-old female with past medical history of type 2 diabetes, hypertension, dysphagia, hiatal hernia, who was admitted to [facility] ED earlier today for elective paraesophageal hernia repair. Patient had a successful robotic assisted hiatal hernia repair with mesh reinforcement, Luis fundoplication performed by Dr. Chamorro earlier today. Patient tolerated procedure well. Patient was noted to have some elevated blood pressure readings with SBP's in 160's to 170's which was managed with IV Lopressor. 05/08/24: Patient assessed at bedside, accompanied by family. Patient is awake, alert and oriented x3 and sitting comfortably. In no acute distress and able to ambulate with some assistance. Daughter in the room mentioned they will work on getting her a walker through insurance. Patient still has some upper abdominal soreness which is expected from procedure. She denied any chest pain, shortness of breath, fever or chills. Denies any nausea or vomiting. Patient is hemodynamically stable and labs are unremarkable. Patient was advised to follow up with her PCP regarding diabetes management and elevated HBA1C of 8.7. Patient will follow up with Dr. Chamorro in one week and will be continued on clear liquid diet then. Patient is overall happy with procedure and is ready for discharge. Cloth Drier(s): General surgery Procedure(s): PATIENT: RHODA RILEY MR#: [id number] : 1950 SEX: F AGE: 73 LOCATION: [facility] ORDER 1058 STATUS: REG I REPORT#: [id number] SERVICE 1055 REASON: DIAPHRAGMATIC HERNIA W/O OBSTRUCTION OR GANGRENE, ANEMIA ORDERING PHYSICIAN: RUSSEL CHAMORRO MD PROCEDURE: ESOPHAG - ESOPHAGUS ESOPHAGUS REASON: DIAPHRAGMATIC HERNIA W/O OBSTRUCTION OR GANGRENE, ANEMIA. COMPARISON: None TECHNIQUE: Biphasic esophagram study was performed. FINDINGS: There is no obstruction to the antegrade passage of barium from mouth through stomach. Large hiatal hernia is seen. Normal esophageal stripping wave is seen. There is gastroesophageal reflux into the level of the upper thoracic esophagus. IMPRESSION: No obstruction. Large hiatal hernia. Gastroesophageal reflux to the level of upper thoracic esophagus. DICTATED BY: JM GARBER MD DATE: 02/24/24 1148 ELECTRONICALLY SIGNED BY: JM GARBER MD DATE: 02/24/24 1151 PATIENT: RHODA RILEY MR#: [id number] : 1950 SEX: F AGE: 73 LOCATION: [facility] ORDER 0959 STATUS: ADM IN REPORT#: [id number] SERVICE 0958 REASON: sob ORDERING PHYSICIAN: [employer]EARCH CONSULTANT PROCEDURE: CXR1VW - CHEST 1VW CHEST 1VW REASON: sob COMPARISON: 12/21/2023 FINDINGS: Single view of the chest was obtained. Lungs are clear. Heart size is normal. There is no pulmonary vascular congestion. Mediastinum and bony thorax appear unremarkable. IMPRESSION: 1. Normal single view chest x-ray. DICTATED BY: VICKIE WALKER MD DATE: 12/23/23 1459 ELECTRONICALLY SIGNED BY: VICKIE WALKER MD DATE: 12/23/23 1502 PATIENT: RHODA RILEY MR#: [id number] : 1950 SEX: F AGE: 73 LOCATION: [facility] ORDER 1621 STATUS: ADM IN REPORT#: [id number] SERVICE 1620 REASON: eval for sob ORDERING PHYSICIAN: SUSANA SENA PROCEDURE: VENOUS RACHELLE - US VENOUS DOPPLER BILATERAL Exam Type: US VENOUS DOPPLER BILATERAL Clinical Information: eval for sob Comparison: None Findings: The examination shows normal deep venous system. There is normal compressibility at all levels. There is no intraluminal clot. There is no occlusion. Adequate response is obtained on augmentation. Impression: No evidence of DVT. DICTATED BY: LIZZIE ROSALES MD DATE: 12/21/231926 ELECTRONICALLY SIGNED BY: LIZZIE ROSALES MD DATE: 12/21/23 193 PATIENT: RHODA RILEY MR#: [id number] : 1950 SEX: F AGE: 73 LOCATION: [facility] ORDER 1610 STATUS: ADM IN REPORT#: [id number] SERVICE 1605 REASON: eval for hydronephrosis ORDERING PHYSICIAN: SUSANA SENA PROCEDURE: RENAL - US RENAL SONOGRAM Exam Type: US RENAL SONOGRAM Clinical Information: eval for hydronephrosis Comparison: None Findings: Examination shows normal renal size and echogenicity bilaterally. Preserved cortical thickness and corticomedullary junction region is seen. No hydronephrosis or calculi are seen. No renal masses are seen. There is no evidence of perinephric fluid on either side. No evidence of significant ureteral dilatation is seen. The right kidney measures 8.8 x 3 cm. The left kidney measures 8.9 x 3 cm. The urinary bladder is normal. No bladder masses, stones, or wall thickening is seen. IMPRESSION: Normal renal anatomy bilaterally. DICTATED BY: LIZZIE ROSALES MD DATE: 12/21/231941 ELECTRONICALLY SIGNED BY: LIZZIE ROSALES MD DATE: 12/21/231949 PATIENT: RHODA RILEY MR#: [id number] : 1950 SEX: F AGE: 71 LOCATION: [facility] ORDER 0854 STATUS: REG CLI REPORT#: [id number] SERVICE 0854 REASON: Diaphragmatic hernia without obstruction or gangrene ORDERING PHYSICIAN: WATSON BERUMEN MD PROCEDURE: UGI WO KUB - UPPER GI TRACT, WO KUB UPPER GI TRACT, WO KUB REASON: Diaphragmatic hernia without obstruction or gangrene. COMPARISON: None TECHNIQUE: Biphasic upper GI series study was performed. FINDINGS: There is no obstruction to the antegrade passage of barium from mouth through jejunum. A normal esophageal stripping wave is seen. There is a large hiatal hernia. Gastroesophageal reflux is seen to the level of the upper thoracic esophagus. Gastric fold thickening is seen may be related to gastritis. Stomach is well distended. Duodenal bulb and duodenal sweep are unremarkable. IMPRESSION: Large hiatal hernia. Gastroesophageal reflux to the level of upper thoracic esophagus. Gastric fold thickening which is a nonspecific finding with gastritis not excluded. No bowel obstruction is seen. DICTATED BY: JM GARBER MD DATE: 10/11/21 1024 ELECTRONICALLY SIGNED BY: JM GARBER MD DATE: 10/11/21 1027 PATIENT: RHODA RILEY MR#: [id number] : 1950 SEX: F AGE: 70 LOCATION: [facility] ORDER 1604 STATUS: [facility] REPORT#: [id number] SERVICE 1602 REASON: pain level L3/L4 ORDERING PHYSICIAN: MICHAEL ESPOSITO PROCEDURE: LUMB 2 3VW - LUMBAR SPINE 2-3VWS LUMBAR SPINE 2-3VWS HISTORY: Pain COMPARISON: None FINDINGS: 3 images of lumbar spine were obtained. Disc space narrowings are seen at L4-5 and L5-S1 levels. There is straightening of normal lordotic curvature which may be related to muscle spasm or positioning. No loss of vertebral height is seen. No fracture or dislocation is seen. Degenerative changes are seen. IMPRESSION: 1. No fracture is seen. DICTATED BY: JM GARBER MD DATE: 07/17/212212 ELECTRONICALLY SIGNED BY: JM GARBER MD DATE: 07/17/21 [id number] Assessment/Plan: ASSESSMENT: Large hiatal hernia, status post paraesophageal hiatal hernia repair, with mesh reinforcement and Luis fundoplication, 05/07/2024 ALEXANDRU Hyponatremia Essential hypertension Type 2 diabetes PLAN: Patient is status post successful paraesophageal hiatal hernia repair on 05/07/2024. Follow up with Dr. Chamorro in one week. Patient to be continued on CLD for one week. Discharge Instructions: Follow up with PCP in 3-5 days. Home Medications: Reported Medications Sucralfate (Sucralfate) 1 Gram Tablet, 1 GM PO QID, TAB 05/05/24 Note (Invokana) 100 Mg Tab, 100 MG PO DAILY, TAB 05/05/24 Pantoprazole Sodium (Pantoprazole Sodium) 40 Mg Tablet.dr, 40 MG PO DAILY, TAB 05/05/24 Ibandronate Sodium (Ibandronate Sodium) 150 Mg Tablet, 150 MG PO QMONTH, TAB 05/05/24 Atorvastatin Calcium (Atorvastatin Calcium) 20 Mg Tablet, 20 MG PO HS 12/21/23 Hydrochlorothiazide (Hydrochlorothiazide) 25 Mg Tablet, 25 MG PO DAILY, TAB 08/29/21 Losartan Potassium (Losartan Potassium) 100 Mg Tablet, 100 MG PO DAILY, TAB 08/29/21 [Ogc-Eqf-Xurih Acid] No Conflict Check, 1 TAB PO HS 08/28/21 Atenolol (Atenolol) 100 Mg Tablet, 100 MG PO HS, TAB 08/28/21 Discontinued Reported Medications Ferrous Sulfate (Ferrous Sulfate) 325 Mg Tablet, 325 MG PO DAILY, TAB 08/31/21 Acetaminophen with Codeine (Acetaminophen-Cod #3 Tablet) 1 Each Tablet, 1 EACH PO BID, TAB 08/31/21 Cinnamon Bark (Cinnamon) 500 Mg Capsule, 500 MG PO HS, CAP 08/28/21 [Vitamin D2] No Conflict Check, 34243 UNITS PO NOON 08/28/21 [Tumeric] No Conflict Check, 400 MG PO BID 08/28/21 Geneva-3S/Dha/Epa/Fish Oil (Fish Oil 1,000 mg Softgel) 1 Each Capsule, 1 EACH PO BID, CAP 08/28/21 Atorvastatin Calcium (LIPITOR) 20 Mg Tab, 20 MG PO HS, TAB 08/28/21 Discontinued Scripts Linagliptin (Tradjenta) 5 Mg Tablet, 5 MG PO DAILY, #30 TAB Prov:EMILY PIERRE MD 12/25/23 Note (Invokana) 100 Mg Tab, 100 MG PO DAILY for 30 Days, #30 TAB Prov:EMILY PIERRE MD 12/25/23 Pantoprazole Sodium (Protonix) 40 Mg Tablet.dr, 40 MG PO BID, #60 TAB 0 Refills Prov:EMILY PIERRE MD 12/25/23 Time spent arranging discharge: 1-30 minutes NEETU DE LA TORRE MD May 08, 2024 12:25
== END 2024-05-08 11:45 | disposition home or self-care (01) ==
LOC: DAH 08:35 → INTOOBSV 08:36 → DAHIP 08:36 → DAH 08:36 → 4DH 15:52
PROVIDERS: ADMIT Surgery; ATTEND Surgery
DX: K44.9 Diaphragmatic hernia without obstruction or gangrene (principal); E87.1 Hypo-osmolality and hyponatremia; N17.9 Acute kidney failure, unspecified; E11.9 Type 2 diabetes mellitus without complications; I10 Essential (primary) hypertension; K21.9 Gastro-esophageal reflux disease without esophagitis; E78.5 Hyperlipidemia, unspecified; D50.9 Iron deficiency anemia, unspecified; Z79.899 Other long term (current) drug therapy; Z98.890 Other specified postprocedural states
CPT/HCPCS: 80048 ×2; 85025; 86850; 86900; 86901; 36415 ×3; 93005 ×2; 96374; 96376; 96375; 43282; 83036; 84484; 85610; 85730; 82948 ×4; 88313; 88307; 97161; 97116; J1815; G0378 ×24; A4223 ×2; A4600 ×3; A6260; A4663; A4215 ×2; J3490 ×7; J3010 ×2; J1170; J1100; J7030; J0360; J2704; J2405; J1885 ×2; J2710; J0665 ×2; J2371; J0690 ×2; A4649; C1781; A4930; A4222; A4221; A4216; 43235

== ENCOUNTER → 2025-04-01 | Outpatient (CLI) | payer MEDICARE, OTHER ==
[~2025-04-01] MED LIST changes: +AMLO-257 PO; +AMOX-426 PO; +GLYC2TAB21 PO; +HYDR200T75 PO; -HYDR25TA PO; -IBAN150T21 PO; -PANT40TA54 PO; +PRED5TAB44 PO; -SUCR1TAB2 PO; -[UNRECOGNIZED DRUG - OTHER] PO
--- NOTE | 2025-04-01 10:44 | HMCIMG ---
NUCLEAR GASTRIC EMPTYING HISTORY: Nausea, vomiting. Early satiety GERD COMPARISON: None available. TECHNIQUE: Gastric emptying study is performed using 1.0 mCi of 99m Tc-labeled sulfur colloid. The patient was given with ex. Anterior and posterior images of the upper abdomen were obtained every minute for 60 minutes post oral intake of the radiolabeled meal. Additional anterior and posterior images were obtained until 90 minutes. There is reflux seen in the distal esophagus. . Areas of interest are generated around the stomach, time/activity curves were generated for the anterior and posterior views and it's geometric mean for 1 hour and the gastric emptying was calculated manually using the geometric mean of the anterior-posterior gastric activity at 1hour, 2 hours, and 4 hours. FINDINGS: Radiolabeled material is seen to enter the duodenum after ingestion within 30 minutes. Continuous gastric emptying is demonstrated with increasing duodenal and jejunal activity. The gastric emptying curve demonstrates normal decreasing activity in a linear fashion demonstrating normal lag phase. Quantitatively, At 90 minutes, the gastric emptying T half time is 4%, which is which is severely delayed. IMPRESSION: 1. Severely delayed gastric emptying in 90 minutes only 4%. 2. There is reflux of the isotopes in the distal esophagus..
== END | disposition home or self-care (01) ==
LOC: RAH 07:21
PROVIDERS: ATTEND Surgery
DX: K21.9 Gastro-esophageal reflux disease without esophagitis (principal); K44.9 Diaphragmatic hernia without obstruction or gangrene; R15.9 Full incontinence of feces
CPT/HCPCS: 78264; A9541

== ENCOUNTER 2025-07-17 18:14 | Inpatient (IN) | payer MEDICARE, OTHER ==
[~2025-07-17] VITALS: Ht 160 cm; Wt 57.2 kg
--- NOTE | 2025-07-17 18:30 | NUR ---
PT JUST NOW PLACED IN ED BED 11
--- NOTE | 2025-07-17 18:50 | NUR ---
PT TO BR VIA W/C. I WAS ABLE TO COLLECT, LABEL AND SEND A URINE SAMPLE. SON TOOK/RETURNED HER VIA W/C.
--- NOTE | 2025-07-17 18:54 | ERN ---
General Chief Complaint: Other Problems Stated Complaint: OVER PRODUCTION OF SALIVA Time Seen by MD: 18:17 Source: patient History of Present Illness Initial Comments Patient is a 74-year-old female coming in complaining of dysphagia. Per patient she believes he is over producing saliva. He states that he has a a hiatal hernia repair recently. Allergies: Coded Allergies: No Known Drug Allergies (Unverified Allergy, Unknown, 07/17/21) Home Meds Active Scripts Amoxicillin/Potassium Clav (Augmentin 500-125 Tablet) 500 Mg-125 Mg Tablet, 1 TAB PO BID for 7 Days, #14 TAB 0 Refills Prov:ADALBERTO THOMPSON MD 03/15/25 Reported Medications Amlodipine Besylate (Amlodipine Besylate) 5 Mg Tablet, 5 MG PO DAILY, TAB 03/07/25 Glycopyrrolate (Glycopyrrolate) 2 Mg Tablet, 1 MG PO BID, TAB 03/07/25 Hydroxychloroquine Sulfate (Hydroxychloroquine Sulfate) 200 Mg Tablet, 300 MG PO BID, TAB 03/07/25 Prednisone (Prednisone) 5 Mg Tab.ds.pk, 5 MG PO DAILY 03/07/25 Note (Invokana) 100 Mg Tab, 100 MG PO DAILY, TAB 05/05/24 Atorvastatin Calcium (Atorvastatin Calcium) 20 Mg Tablet, 20 MG PO HS 12/21/23 Losartan Potassium (Losartan Potassium) 100 Mg Tablet, 100 MG PO DAILY, TAB 08/29/21 Atenolol (Atenolol) 100 Mg Tablet, 100 MG PO HS, TAB 08/28/21 Past Medical History Past Medical History: Diabetes-Type II, High Cholesterol, Hypertension Past Surgical History: Appendectomy, Hysterectomy, Cholecystectomy, Other Surgical History Other: HIATAL HENIA Social History Social History: Lives with family ROS Dictation CONSTITUTIONAL: No chills, no fever, no weakness, no diaphoresis, no malaise. HEAD/FACE: No signs of trauma. EENT: No eye pain, no blurred vision, no tearing, no double vision, no ear p ain, no ear discharge, no nose pain, no nasal congestion, no throat pain, no throat swelling, no mouth pain. RESPIRATORY: No cough, no orthopnea, no SOB, no stridor, no wheezing. CARDIOVASCULAR: No chest pain, no edema, no palpitations, no syncope. GASTROINTESTINAL/ABDOMINAL: No abdominal pain, no constipation, no diarrhea, no nausea, no vomiting. GENITOURINARY: No abnormal discharge, no dysuria, no frequent urination, no hematuria. No complaints of pain in the genitals. MUSCULOSKELETAL: No back pain, no gout, no joint pain, no joint swelling, no muscle pain, no muscle stiffness, no neck pain. INTEGUMENTARY: No change in color, no change in hair/nails, no dryness, no lesion, no lumps, no rash. NEUROLOGICAL/PSYCH: No anxiety, not depressed, no emotional problem, no headache, no numbness, no pre-existing deficit, no history of seizures, no tremors, no weakness. HEMATOLOGIC/LYMPHATIC: Not anemic, no history of blood clots, no apparent bleeding, no bruising, glands not swollen. All Systems Negative, Except as Noted. Physical Exam Physical Exam Dictation VITAL SIGNS: Reviewed. GENERAL APPEARANCE: Alert, oriented x3, no acute distress, obese. HEAD AND FACE: Non-traumatic. EYES: PERRL, pink conjunctivas, eyelid no trauma, anterior chamber clear. EARS: Pinnas intact and no signs of trauma or erythema. Ear canals clear and no discharge. TMs no erythema. NOSE: No discharge, no bleeding. OROPHARYNX: Mouth normal, teeth no caries, tongue pink. Pharynx clear, no erythema. Tonsils no exudates, no abscesses noted. Mucous membrane moist. NECK: Supple, non-tender, no thyromegaly, no masses, no JVD, no bruits. BREAST: Deferred. CHEST: No tenderness, no crepitus, no paradoxical movement, no retractions. LUNGS: Clear, well-ventilated, symmetric, no rales, no wheezing, no rhonchi, no stridor, good breath sounds bilaterally. HEART: Regular rate, regular rhythm, no murmur, no gallops. VASCULAR: No peripheral edema. ABDOMEN: Soft, positive bowel sounds, nondistended, no guarding, nontender, no rebound, no masses no hepatomegaly, no splenomegaly, no Burgess's sign, no hernias. RECTAL: Deferred. GENITAL: Deferred. NEUROLOGICAL: Normal speech, gross motor function intact, gross sensory function intact. MUSCULOSKELETAL: Neck nontender, full range of motion, back nontender, full range of motion. EXTREMITIES: Nontender, full range of motion. SKIN: Color pink, dry, no turgor, no rash, no lacerations, no abrasions, no contusions. LYMPHATICS: Deferred. Results Laboratory and Microbiology Lab and Micro Result Laboratory Tests Test 07/17/25 18:54 White Blood Count 9.8 K/uL (4.8-10.8) Red Blood Count 4.24 MIL/uL (4.00-5.50) Hemoglobin 12.0 g/dL (12.0-16.0) Hematocrit 38.4 % (36-48) Mean Corpuscular Volume 90.6 fL (79-99) Mean Corpuscular Hemoglobin 28.3 pg (27.0-33.0) Mean Corpuscular Hemoglobin Concent 31.3 g/dL (32.0-36.0) L Red Cell Distribution Width 15.7 % (11.0-15.5) H Platelet Count 218 K/uL (130-400) Mean Platelet Volume 9.5 fL (7.5-10.5) Immature Granulocyte % (Auto) 0.4 % (0-1) Neutrophils (%) (Auto) 75.2 % (40.0-77.0) Lymphocytes (%) (Auto) 20.1 % (21.0-51.0) L Monocytes (%) (Auto) 3.8 % (3.0-13.0) Eosinophils (%) (Auto) 0.1 % (0.0-8.0) Basophils (%) (Auto) 0.4 % (0.0-5.0) Neutrophils # (Auto) 7.3 K/uL (1.8-7.7) Lymphocytes # (Auto) 2.0 K/uL (1.0-4.8) Monocytes # (Auto) 0.4 K/uL (0.1-1.0) Eosinophils # (Auto) 0.01 K/uL (0.00-0.70) Basophils # (Auto) 0.04 K/uL (0.00-0.20) Absolute Immature Granulocyte (auto 0.04 K/uL (0-1) Nucleated Red Blood Cells 0.0 % (0.0-0.19) Sodium Level 142 mmol/L (136-145) Potassium Level 3.6 mmol/L (3.5-5.1) Chloride Level 109 mmol/L (101-111) Carbon Dioxide Level 22 mmol/L (21-32) Blood Urea Nitrogen 14 mg/dL (7-18) Creatinine 0.9 mg/dL (0.5-1.0) Glomerular Filtration Rate Calc 68 mL/min (>90) Random Glucose 164 mg/dL (70-105) H Total Calcium 8.6 mg/dL (8.5-10.1) Labs Reviewed?: Yes MDM MDM: Differential diagnosis: Rationale: Tests considered and ordered secondary to shared decision making include: Previous outside records reviewed: Old ER visits. Risk of complication and/or morbidity or mortality of patient management: None Medications-Per medication reconciliation Need for hospitalization: Patient does not meet criteria for hospitalization. Need for emergency major/minor surgery: No There are no social concerns with this patient. Prescription drug management Prescriptions will include symptomatic care Patient's prior external medical records from other ER visits were reviewed by me as indicated. Prior testing and results from previous visits were reviewed. Prior tests were taken into account with medical decision making and resource utilization, independent historian/historians were used to obtain complete medical history. I independently interpreted the test that were performed, results were reviewed by me and considered findings on radiology if ordered. Medical management and examination interpretation discussions were had by me with other qualified healthcare professionals as indicated for the patient's care. ED Course Orders Procedure Category Date Status Time Cbc With Differential LAB 07/17/25 Complete 18:23 Basic Metabolic Panel LAB 07/17/25 Complete 18:23 Ct Chest W/O Contrast CT 07/17/25 Resulted 18:35 Vital Signs Date Time Temp Pulse Resp B/P (MAP) Pulse Ox O2 Delivery O2 Flow Rate FiO2 07/17/25 22:02 98.1 72 18 142/82 96 Room Air* 0 21 07/17/25 19:17 98.1 66 18 194/83 97 Room Air* 0 21 07/17/25 18:17 98.1 74 20 179/82 99 Room Air 10:12 p.m.: Spoke to Dr. Alden robertson of [place] [facility]. States that he would like the nurse to call him with a status report and for orders early tomorrow morning. DX & DISP Disposition: Inpatient Departure Impression: Primary Impression: Esophageal dilatation Additional Impression: Hiatal hernia Condition: Stable Referrals: HUMAIRA ZAMBRANO MD (PCP) PINA BLACKWOOD MD Jul 17, 2025 18:53 JENNY REINOSO MD Jul 17, 2025 22:14
--- NOTE | 2025-07-17 18:59 | NUR ---
PT JUST NOW TO CT SCAN
--- NOTE | 2025-07-17 19:26 | NUR ---
REPORT ENDORSED TO DOROTHEA CHESTER. INFORMED FORMAL/INITIAL ASSESSMENT STILL PENDING.
[2025-07-17 19:27] LABS: IMMATURE GRANULOCYTE ABSOLUTE 0.04 K/uL (0-1); NUCLEATED RED BLOOD CELLS 0.0 % (0.0-0.19); PLATELET COUNT (AUTO) 218 K/uL (130-400); RED BLOOD CELL COUNT(AUTO) 4.24 MIL/uL (4.00-5.50); RED CELL DISTRIBUTION WIDTH 15.7 % (11.0-15.5); WHITE BLOOD COUNT (AUTO) 9.8 K/uL (4.8-10.8)
[2025-07-17 19:37] LABS: CREATININE 0.9 mg/dL (0.5-1.0); GLOMERULAR FILTR. RATE CALC 68.0 mL/min (>90); GLUCOSE,RANDOM 164.0 mg/dL (70-105); SODIUM SERUM 142.0 mmol/L (136-145); UREA NITROGEN, BLOOD 14.0 mg/dL (7-18)
--- NOTE | 2025-07-17 20:17 | HMCIMG ---
EXAM: CT Chest Without IV Contrast CLINICAL HISTORY: Dysphagia TECHNIQUE: Axial computed tomography images of the chest were obtained without intravenous contrast. Multiplanar reformations were reviewed. COMPARISON: March 09, 2025, chest radiograph, single view.FINDINGS: LUNGS: Left lower lobe subsegmental atelectasis is present. A small pulmonary nodule is seen in the right middle lobe measuring approximately 0.4 x 0.3 cm, series 3 image 33. No focal consolidation or pulmonary mass. PLEURAL SPACES: Trace bilateral pleural effusions are present. No pneumothorax. ESOPHAGUS AND MEDIASTINUM: The esophagus is diffusely dilated and fluid-filled along its entire length, with a maximum diameter of approximately 3.8 cm. A moderate hiatal hernia is present, with the stomach herniating through a widened esophageal hiatus into the posterior mediastinum. HEART AND GREAT VESSELS: The heart is normal in size. No pericardial effusion. Mild atherosclerotic calcification of the thoracic aorta. No aneurysm. THYROID: Coarse calcified nodules are noted within the left lobe of the thyroid gland. LYMPH NODES: No mediastinal, hilar, or axillary lymphadenopathy. UPPER ABDOMEN: Visualized upper abdominal solid organs are unremarkable. BONES: Moderate degenerative changes of the thoracic spine with osteophyte formation and endplate sclerosis. No acute osseous abnormality.IMPRESSION: Diffuse esophageal dilation with fluid retention, maximum diameter 3.8 cm. Moderate hiatal hernia with stomach herniation into the posterior mediastinum. Gastroenterology consultation is recommended, and upper gastrointestinal endoscopy or barium esophagram may be considered Right middle lobe pulmonary nodule, measuring 0.4 x 0.3 cm. Follow-up CT chest at 12 months is recommended to assess the stability of the right middle lobe pulmonary nodule. Trace bilateral pleural effusions. Left lower lobe subsegmental atelectasis. /[place]
--- NOTE | 2025-07-17 23:04 | HP ---
[facility] HISTORY AND PHYSICAL Date of Service: Jul 17, 2025 Time of Service: 23:04 PCP: Rubio Lainez HISTORY OF PRESENT ILLNESS: Thi 74-year-old female with past medical history of hypertension, diabetes, hyperlipidemia, esophageal dilatation, Lupus,Dysphagia ,EGD with botox injections and peg tube placement and Hiatal hernia with repair x2 who presents to the ed for complaints of dysphagia.Patient states she is overly producing saliva and that she also has nausea and vomiting saliva as well.Patient states she has difficulty swallowing sometimes.Patient reports she has been getting botox injection to her salivary gland she said twice already and the recent one was sometime 4 months ago.Patient also reports she used to have peg tube which was recently removed and she was tolerating her diet well unti; today she started having vomiting of saliva.Patient denies fever,chills,abdominal pain,c hest pain,palpitation,cough and shortness of breath. Latest vital signs temperature 98.1, heart rate 72, blood pressure 142/82 saturation 96% on room air. Labs: CBC unremarkable. Random glucose 164 the rest of the chemistries normal. CT chest without contrast result revealed use esophageal dilation fluid retention, maximum diameter 3.8 cm. Moderate hiatal hernia with stomach herniation into the posterior mediastinum. Gastroenterology consultation is recommended and upper gastrointestinal endoscopy or barium esophagram may be considered. Right Middle lobe pulmonary nodule measuring 0.4 x 0.3 cm. Follow- up CT chest at 12 months is recommended to assess the stability of the right middle lobe pulmonary nodule. Trace bilateral pleural effusions. Left lower lobe subsegmental atelectasis. As per ER MD he spoke to from [facility]. We will admit patient for further medical management. : REVIEW OF SYSTEMS CONSTITUTIONAL: Denies fevers, chills, or night sweats. No unintentional weight loss reported. NEUROLOGICAL: Denies headache, amaurosis fugax, motor weakness, sensory deficit, vertigo/spinning sensation, gait abnormalities, or tremors. ENT: No hearing loss, otalgia, otorrhea, rhinitis, rhinorrhea, hoarseness, or sore throat. CARDIOVASCULAR: Denies any exertional angina, dyspnea on exertion, orthopnea, paroxysmal nocturnal dyspnea, palpitations, life-threatening arrhythmias, claudication. PULMONARY: Denies any shortness of breath, cough, phlegm/sputum, hemoptysis, pleuritic chest pain. SLEEP: Denies morning headaches, daytime somnolence or napping. Denies difficulty falling asleep, staying asleep, waking from sleep. Denies knowledge of snoring. GASTROINTESTINAL: Complaints of dysphagia , nausea and vomiting Denies any type of dysphagia to either liquids or solids. Denies nausea, vomiting, pyrosis, early satiety, abdominal pain, diarrhea, constipation, or changes in stool consistency or caliber. Denies coffee-ground emesis, hematemesis, hematochezia, or melanotic stools. GENITOURINARY: Denies frequency, urgency, nocturia, hematuria or incontinence (Storage/Irritative symptoms.) Low urinary stream, straining to void, urinary intermittency or hesitancy, splitting of the voiding stream, terminal dribbling. ENDOCRINOLOGIC: Denies polyuria, polydipsia, polyphagia or heat/cold intolerances. HEMATOLOGIC: Denies thrombophilia/previous clots, or coagulopathy/bleeding disorders. ONCOLOGIC: Denies personal history of malignancy. DERMATOLOGIC: Denies rashes or pruritus. PSYCHIATRIC: Denies any suicidal or homicidal ideation. Denies hallucinations. PAST MEDICAL HISTORY: [ hypertension, diabetes, hyperlipidemia, esophageal dilatation, Lupus,Dysphagia ,EGD with botox injections and peg tube placement and Hiatal hernia with re pair x2 ] PAST SURGICAL HISTORY: [ EGD with Botox injection and PEG tube placement, hiatal hernia with repair x2 bilateral tubal ligation, appendectomy, hysterectomy] PAST SOCIAL HISTORY: [ Patient lives with kids. Patient denies alcohol tobacco and recreational drug use] FAMILY HISTORY: [Noncontributory ] Coded Allergies: No Known Drug Allergies (Unverified Allergy, Unknown, 07/17/21) PHYSICAL EXAM GENERAL APPEARANCE: The patient is awake, alert, and oriented, in no acute cardiopulmonary distress. NEUROLOGICAL: Cranial nerves II-XII grossly intact. Motor is 5/5 in bilateral upper and lower extremities proximal to distal. No sensory deficits. HEENT: Face is symmetric. Pupils are equal and reactive. Extraocular movements are intact. NECK: Supple. No JVD. No thyromegaly. No submental, submandibular, pre- /postauricular, occipital or supraclavicular lymphadenopathy. CHEST: Normal chest expansion. No Telemetry. LUNGS: Absence of any rales, rhonchi or any wheezing. CARDIOVASCULAR: Regular. S1 and S2 normal. No appreciable rubs, murmurs or gallops. ABDOMEN: Soft, nontender, and nondistended. There is no rebound, voluntary guarding, or rigidity. : Deferred. No Miner. EXTREMITIES: Non-edematous and not cyanotic. No clubbing. Good capillary refill. SKIN: No skin breakdown. Vital Sign (Last 24 Hours) 07/17/25 22:02 Temp 98.1 Pulse 72 Resp 18 B/P (MAP) 142/82 Pulse Ox 96 O2 Delivery Room Air* O2 Flow Rate 0 FiO2 21 LABS: Laboratory: Test 07/17/25 18:54 Range/Units White Blood Count 9.8 4.8-10.8 K/uL Red Blood Count 4.24 4.00-5.50 MIL/uL Hemoglobin 12.0 12.0-16.0 g/dL Hematocrit 38.4 36-48 % Mean Corpuscular Volume 90.6 79-99 fL Mean Corpuscular Hemoglobin 28.3 27.0-33.0 pg Mean Corpuscular Hemoglobin Concent 31.3 L 32.0-36.0 g/dL Red Cell Distribution Width 15.7 H 11.0-15.5 % Platelet Count 218 130-400 K/uL Mean Platelet Volume 9.5 7.5-10.5 fL Immature Granulocyte % (Auto) 0.4 0-1 % Neutrophils (%) (Auto) 75.2 40.0-77.0 % Lymphocytes (%) (Auto) 20.1 L 21.0-51.0 % Monocytes (%) (Auto) 3.8 3.0-13.0 % Eosinophils (%) (Auto) 0.1 0.0-8.0 % Basophils (%) (Auto) 0.4 0.0-5.0 % Neutrophils # (Auto) 7.3 1.8-7.7 K/uL Lymphocytes # (Auto) 2.0 1.0-4.8 K/uL Monocytes # (Auto) 0.4 0.1-1.0 K/uL Eosinophils # (Auto) 0.01 0.00-0.70 K/uL Basophils # (Auto) 0.04 0.00-0.20 K/uL Absolute Immature Granulocyte (auto 0.04 0-1 K/uL Nucleated Red Blood Cells 0.0 0.0-0.19 % Sodium Level 142 136-145 mmol/L Potassium Level 3.6 3.5-5.1 mmol/L Chloride Level 109 101-111 mmol/L Carbon Dioxide Level 22 21-32 mmol/L Blood Urea Nitrogen 14 7-18 mg/dL Creatinine 0.9 0.5-1.0 mg/dL Glomerular Filtration Rate Calc 68 >90 mL/min Random Glucose 164 H 70-105 mg/dL Total Calcium 8.6 8.5-10.1 mg/dL DIAGNOSTICS / RADIOLOGY: [ ] ASSESSMENT: Esophageal dilatation POA Moderate Hiatal Hernia with stomach herniation per CT POA Diabetes with hyperglycemia POA Hypertension POA Incidental finding for right middle lobe nodule 0.4X0.[address] POA Hyperlipidemia POA Trace bilateral pleural effusion with left lower lobe atelectasis per CT POA History of Hiatal hernia repair X2 POA PLAN: We will admit patient in medical surgical We will keep nothing by mouth We will start NS @ 100 ml / hr x2 bags and re evaluate We will start on Protonix 40 mg IV daily for GI prophylaxis We will replace electrolytes as needed per protocol We will start on insulin sliding scale AC & HS with hypoglycemia protocol We will add prn medication for fever,pain,cough , nausea and vomiting We will reconcile home meds once medlist available Bedside swallow eval We will seek gastroenterology consultation Aspiration precaution We will request labs in am Further orders to follow depending on above results Case discussed with attending physician and came up with above treatment and plan of care. ADVANCED CARE PLANNING 1. Which of the following were discussed? Hospice Care - No Therapeutic options - Yes Advance Directives - No Other discussions - 2. Discussed with who? patient and son 3. Voluntary nature of this service was explained to the patient? Yes 4. Amount of time spent - __22 min 5. Reviewed by Physician? (if this service was performed by NPP) Yes Patient seen and examined by me. Agree with note by TRANSCRIBING OPERATOR HEAD SEE ADDITIONAL ORDERS PER CHART DISCUSSED WITH NURSING STAFF VIKY LAURENT Jul 17, 2025 23:04
[2025-07-17] MEDS ORDERED: GLUCAGON 1MG KIT 1 MG ML IM PRN (23:30)
[2025-07-17] MEDS ORDERED: DEXTROSE 50%-WATER 50 ML DISP.SYRIN IV PRN (23:30)
[2025-07-18] VITALS (22 sets, daily range): BP systolic 97–151; BP diastolic 47–79; PULSE 34–91; RESP 14–20; TEMP 97.1–98.2; O2SAT 97–98
[2025-07-18] MEDS: 0.9%NACL 1000ML 1,000 ML IV SCH (00:20)
--- NOTE | 2025-07-18 01:00 | NUR ---
ADMIT NOTE\HOME MEDICATIONS ADMIT TO ROOM 418 VIA STRETCHER FROM ER, PATIENT AWAKE, ALERT, OX3, NO FAMILY AT BEDSIDE, PATIENT DID NOT BRING HOME MEDICATIONS, PATIENT WILL CALL DAUGHTER TO BRING IN THE AM, NPO STATUS REINFORCED, IVF INFUSING WELL, TEACH PATIENT PLAN OF CARE AND EXPECTED OUTCOME, PATIENT VERBALIZES UNDERSTANDING VIA TEACH BACK
[2025-07-18 06:31] LABS: IMMATURE GRANULOCYTE ABSOLUTE 0.04 K/uL (0-1); NUCLEATED RED BLOOD CELLS 0.0 % (0.0-0.19); PLATELET COUNT (AUTO) 169 K/uL (130-400); RED BLOOD CELL COUNT(AUTO) 3.48 MIL/uL (4.00-5.50); RED CELL DISTRIBUTION WIDTH 15.6 % (11.0-15.5); WHITE BLOOD COUNT (AUTO) 8.2 K/uL (4.8-10.8)
[2025-07-18 06:43] LABS: INR 1.15 (0.85-1.15)
[2025-07-18 06:54] LABS: ASPARTATE AMINOTRANSFERASE 26.0 U/L (10-37); CREATININE 0.7 mg/dL (0.5-1.0); GLOMERULAR FILTR. RATE CALC 91.0 mL/min (>90); GLUCOSE,RANDOM 104.0 mg/dL (70-105); SODIUM SERUM 144.0 mmol/L (136-145); TOTAL PROTEIN, SERUM 4.9 g/dL (6.0-8.3); UREA NITROGEN, BLOOD 17.0 mg/dL (7-18)
[2025-07-18] MEDS: MAGNESIUM 2GM PREMIX 50ML 50 ML IV PRN (09:44)
--- NOTE | 2025-07-18 11:13 | PN ---
[facility] PROGRESS NOTE Date of Service: Jul 18, 2025 Time of Service: 11:11 SUBJECTIVE: Follow up visit for a 74-year-old female admitted to the hospital for concerns of esophageal dilatation, dysphagia. Patient remains NPO, on maintenance IVF. Consultation with GI team has been requested pending evaluation. REVIEW OF SYSTEMS CONSTITUTIONAL: Denies fevers, chills, or night sweats. No unintentional weight loss reported. NEUROLOGICAL: Denies headache, amaurosis fugax, motor weakness, sensory deficit, vertigo/spinning sensation, gait abnormalities, or tremors. ENT: No hearing loss, otalgia, otorrhea, rhinitis, rhinorrhea, hoarseness, or sore throat. CARDIOVASCULAR: Denies any exertional angina, dyspnea on exertion, orthopnea, paroxysmal nocturnal dyspnea, palpitations, life-threatening arrhythmias, claudication. PULMONARY: Denies any shortness of breath, cough, phlegm/sputum, hemoptysis, pleuritic chest pain. SLEEP: Denies morning headaches, daytime somnolence or napping. Denies difficulty falling asleep, staying asleep, waking from sleep. Denies knowledge of snoring. GASTROINTESTINAL: Complaints of dysphagia , nausea and vomiting Denies any type of dysphagia to either liquids or solids. Denies nausea, vomiting, pyrosis, early satiety, abdominal pain, diarrhea, constipation, or changes in stool consistency or caliber. Denies coffee-ground emesis, hematemesis, hematochezia, or melanotic stools. GENITOURINARY: Denies frequency, urgency, nocturia, hematuria or incontinence (Storage/Irritative symptoms.) Low urinary stream, straining to void, urinary intermittency or hesitancy, splitting of the voiding stream, terminal dribbling. ENDOCRINOLOGIC: Denies polyuria, polydipsia, polyphagia or heat/cold intolerances. HEMATOLOGIC: Denies thrombophilia/previous clots, or coagulopathy/bleeding disorders. ONCOLOGIC: Denies personal history of malignancy. DERMATOLOGIC: Denies rashes or pruritus. PSYCHIATRIC: Denies any suicidal or homicidal ideation. Denies hallucinations. PHYSICAL EXAM GENERAL APPEARANCE: The patient is awake, alert, and oriented, in no acute cardiopulmonary distress. NEUROLOGICAL: Cranial nerves II-XII grossly intact. Motor is 5/5 in bilateral upper and lower extremities proximal to distal. No sensory deficits. HEENT: Face is symmetric. Pupils are equal and reactive. Extraocular movements are intact. NECK: Supple. No JVD. No thyromegaly. No submental, submandibular, pre- /postauricular, occipital or supraclavicular lymphadenopathy. CHEST: Normal chest expansion. No Telemetry. LUNGS: Absence of any rales, rhonchi or any wheezing. CARDIOVASCULAR: Regular. S1 and S2 normal. No appreciable rubs, murmurs or gallops. ABDOMEN: Soft, nontender, and nondistended. There is no rebound, voluntary guarding, or rigidity. : Deferred. No Miner. EXTREMITIES: Non-edematous and not cyanotic. No clubbing. Good capillary refill. SKIN: No skin breakdown. Vital Signs (last 8hr) Date Time Temp Pulse Resp B/P (MAP) Pulse Ox O2 Delivery O2 Flow Rate FiO2 07/18/25 08:14 97.7 81 14 136/66 96 Room Air 07/18/25 07:35 98 Room Air* 0 21 07/18/25 04:00 97.9 84 18 124/60 98 Room Air LABS: Laboratory: Test 07/18/25 10:39 07/18/25 06:20 Range/Units Whole Blood Glucose 106 70-110 MG/DL White Blood Count 8.2 4.8-10.8 K/uL Red Blood Count 3.48 L 4.00-5.50 MIL/uL Hemoglobin 9.8 L 12.0-16.0 g/dL Hematocrit 30.3 #L 36-48 % Mean Corpuscular Volume 87.1 79-99 fL Mean Corpuscular Hemoglobin 28.2 27.0-33.0 pg Mean Corpuscular Hemoglobin Concent 32.3 32.0-36.0 g/dL Red Cell Distribution Width 15.6 H 11.0-15.5 % Platelet Count 169 130-400 K/uL Mean Platelet Volume 9.7 7.5-10.5 fL Immature Granulocyte % (Auto) 0.5 0-1 % Neutrophils (%) (Auto) 70.2 40.0-77.0 % Lymphocytes (%) (Auto) 21.7 21.0-51.0 % Monocytes (%) (Auto) 7.4 3.0-13.0 % Eosinophils (%) (Auto) 0.0 0.0-8.0 % Basophils (%) (Auto) 0.2 0.0-5.0 % Neutrophils # (Auto) 5.8 1.8-7.7 K/uL Lymphocytes # (Auto) 1.8 1.0-4.8 K/uL Monocytes # (Auto) 0.6 0.1-1.0 K/uL Eosinophils # (Auto) 0.00 0.00-0.70 K/uL Basophils # (Auto) 0.02 0.00-0.20 K/uL Absolute Immature Granulocyte (auto 0.04 0-1 K/uL Nucleated Red Blood Cells 0.0 0.0-0.19 % Prothrombin Time 12.0 H 9.6-11.6 SEC Prothromb Time International Ratio 1.15 0.85-1.15 Activated Partial Thromboplast Time 28.4 26.3-35.5 SEC Sodium Level 144 136-145 mmol/L Potassium Level 3.7 3.5-5.1 mmol/L Chloride Level 112 H 101-111 mmol/L Carbon Dioxide Level 21 21-32 mmol/L Blood Urea Nitrogen 17 7-18 mg/dL Creatinine 0.7 0.5-1.0 mg/dL Glomerular Filtration Rate Calc 91 >90 mL/min Random Glucose 104 70-105 mg/dL Total Calcium 7.9 L 8.5-10.1 mg/dL Magnesium Level 1.20 L 1.80-2.40 mg/dL Total Bilirubin 0.4 0.2-1.0 mg/dL Aspartate Amino Transf (AST/SGOT) 26 10-37 U/L Alanine Aminotransferase (ALT/SGPT) 33 12-78 U/L Alkaline Phosphatase 65 50-136 U/L Total Protein 4.9 L 6.0-8.3 g/dL Albumin 2.1 L 3.5-5.0 g/dL Current Medications Medications (Trade) Dose Ordered Sig/Kunal Route PRN Reason Start Time Stop Time Status Last Admin Dose Admin Dextrose (D50w) 50 ml AD PRN IV HYPOGLYCEMIA PROTOCOL 07/17/25 23:30 08/16/25 23:29 Glucagon (Glucagon 1mg Kit) 1 mg AD PRN IM HYPOGLYCEMIA PROTOCOL 07/17/25 23:30 08/16/25 23:29 Insulin Human Regular (humuLIN R 100 UNIT/ML 3ML) INSULIN SLIDING SCAL... ACHS SQ 07/18/25 07:30 08/17/25 07:29 Magnesium Sulfate 50 ml @ 0 mls/hr PROTOCOL PRN IV OTHER [SEE ORDER COMMENTS] 07/17/25 23:30 08/16/25 23:29 07/18/25 09:44 25 MLS/HR Ondansetron HCl (zoFRAN 4MG INJ) 4 mg Q6H PRN IV NAUSEA/VOMITING 07/17/25 23:30 08/16/25 23:29 Pantoprazole Sodium (PROTonix 40MG INJ) 40 mg DAILY IVP 07/18/25 09:00 08/17/25 08:59 07/18/25 09:41 40 MG Potassium Chloride 100 ml @ 50 mls/hr AD PRN IV POTASSIUM PROTOCOL 07/17/25 23:30 08/16/25 23:29 Sodium Chloride 1,000 ml @ 100 mls/hr Q10H IV 07/17/25 23:30 08/16/25 23:29 07/18/25 09:44 100 MLS/HR DIAGNOSTICS / RADIOLOGY: [ ] ASSESSMENT: Esophageal dilatation POA Moderate Hiatal Hernia with stomach herniation per CT POA Diabetes with hyperglycemia POA Hypertension POA Incidental finding for right middle lobe nodule 0.4X0.[address] POA Hyperlipidemia POA Trace bilateral pleural effusion with left lower lobe atelectasis per CT POA History of Hiatal hernia repair X2 POA PLAN: Continue admission medical surgical We will keep nothing by mouth for now Continue start NS @ 100 ml / hr Continue on Protonix 40 mg IV daily for GI prophylaxis We will replace electrolytes as needed per protocol We will start on insulin sliding scale AC & HS with hypoglycemia protocol We will add prn medication for fever,pain,cough , nausea and vomiting We will reconcile home meds once medlist available Bedside swallow eval gastroenterology consultation requested, follow up with recommendations Aspiration precaution We will request labs in am Further orders to follow depending on above results Case discussed with attending physician and came up with above treatment and plan of care. WESLEY MCDANIELS PAC Jul 18, 2025 11:13
--- NOTE | 2025-07-18 13:23 | NUR ---
DR RILEY AWARE. EGD SCHEDULED FOR 1430. INFORMED CONSENT OBTAINED
--- NOTE | 2025-07-18 14:15 | NUR ---
TAKEN OFF UNIT FOR EGD VIA HOSPITAL BED
--- NOTE | 2025-07-18 14:48 | NUR ---
INITIAL/DCP HOME Met w pt this afternoon to discuss dcp. Emergency contacts are dtr Ember Garcia [phone] or son Davis Eden [phone]. Preferred pharmacy is [facility] [phone] Prior to admission pt was living at home w her 2grandsons ages 23 & 24yr old. Pt requires assist w ADLs and uses a rollator for ambulation. Pt has private caregivers that assist her from 9a-4p. DME includes wc, chair, rollator. Caregiver or dtr Ember provide transportation where needed. Discharge goal is to return home.
[2025-07-18] MEDS ORDERED: LIDOCAINE HCL 1% 20 ML VIAL ONE (15:51)
--- NOTE | 2025-07-18 17:01 | NUR ---
BEDSIDE SWALLOW EVALUATION:BEDSIDE SWALLOW EVALUATION: No s/s of aspiration. RECOMMENDATIONS: Regular textured solids, thin liquids, and whole pills. COMPENSATORY STRATEGIES: 1. Upright during PO intake 2. Alternate bites/sips 3. small bites/sips INFORMATICS ANALYST reviewed results and recommendations with patient and nurse Santiago. ST is not indicated at this time. INFORMATICS ANALYST explained risks and consequences of aspiration. All questions answered.
--- NOTE | 2025-07-18 17:40 | NUR ---
RETURNED FROM EGD; IN NO DISRESS
[2025-07-18] MEDS ORDERED: PoTASSium chloRIDE 20MEQ ER 20 MEQ ERTAB PO PRN (20:00)
[2025-07-18] MEDS: PoTASSium chl 10% ELIXIR 20MEQ 20 MEQ/15 ML UDCUP PO PRN (20:26)
[2025-07-19] VITALS: BP 146/75; PULSE 80; RESP 16; TEMP 98.2
[2025-07-19 03:29] VITALS: BP 143/72; PULSE 78; RESP 20; TEMP 98.8
[2025-07-19 03:51] LABS: IMMATURE GRANULOCYTE ABSOLUTE 0.02 K/uL (0-1); NUCLEATED RED BLOOD CELLS 0.0 % (0.0-0.19); PLATELET COUNT (AUTO) 155 K/uL (130-400); RED BLOOD CELL COUNT(AUTO) 3.44 MIL/uL (4.00-5.50); RED CELL DISTRIBUTION WIDTH 16.1 % (11.0-15.5); WHITE BLOOD COUNT (AUTO) 6.5 K/uL (4.8-10.8)
[2025-07-19 04:07] LABS: CREATININE 0.5 mg/dL (0.5-1.0); GLOMERULAR FILTR. RATE CALC 99.0 mL/min (>90); GLUCOSE,RANDOM 120.0 mg/dL (70-105); SODIUM SERUM 140.0 mmol/L (136-145); UREA NITROGEN, BLOOD 11.0 mg/dL (7-18)
[2025-07-19 07:54] VITALS: BP 140/69; PULSE 86; RESP 19; TEMP 98.2
[2025-07-19 08:00] VITALS: O2SAT 100
--- NOTE | 2025-07-19 10:02 | NUR ---
EDUCATED PATIENT ON CURRENT FULL LIQUID DIET PER MD. ALL FOODS THAT ARE INCLUDED IN THE FULL LIQUID DIET. PATIENT STATES THAT SHE WANTS TO EAT OTHER SOLID FOODS. REINFORCED THE FULL LIQUID DIET AND PATIENT VERBALIZED UNDERSTANDING.
[2025-07-19 11:58] VITALS: BP 159/83; PULSE 105; RESP 19; TEMP 97.5
--- NOTE | 2025-07-19 12:13 | PN ---
[facility] PROGRESS NOTE Date of Service: Jul 19, 2025 Time of Service: 12:[address] Barrett SUBJECTIVE: 07/18/25 Follow up visit for a 74-year-old female admitted to the hospital for concerns of esophageal dilatation, dysphagia. Patient remains NPO, on frieda ntenance IVF. Consultation with GI team has been requested pending evaluation. 07/19/25 patient was seen by nurse practitioner and physician during rounding in room 418. As per RN patient was seen by the GI, unfortunately no notes were performed over the weekend. As per RN GI cleared patient to be discharged home EGD was performed on 07/18/2025 and patient is pending Botox injection for dilated esophagus outpatient. SLIPCOVER CUTTER reach out to GI regarding further recommendation and clearance to discharge. Once we will get also patient to be discharged home. In the meantime we will continue to monitor patient. A.m. labs REVIEW OF SYSTEMS CONSTITUTIONAL: Denies fevers, chills, or night sweats. No unintentional weight loss reported. NEUROLOGICAL: Denies headache, amaurosis fugax, motor weakness, sensory deficit, vertigo/spinning sensation, gait abnormalities, or tremors. ENT: No hearing loss, otalgia, otorrhea, rhinitis, rhinorrhea, hoarseness, or sore throat. CARDIOVASCULAR: Denies any exertional angina, dyspnea on exertion, orthopnea, paroxysmal nocturnal dyspnea, palpitations, life-threatening arrhythmias, claudication. PULMONARY: Denies any shortness of breath, cough, phlegm/sputum, hemoptysis, pleuritic chest pain. SLEEP: Denies morning headaches, daytime somnolence or napping. Denies difficulty falling asleep, staying asleep, waking from sleep. Denies knowledge of snoring. GASTROINTESTINAL: Complaints of dysphagia , nausea and vomiting Denies any type of dysphagia to either liquids or solids. Denies nausea, vomiting, pyrosis, early satiety, abdominal pain, diarrhea, constipation, or changes in stool consistency or caliber. Denies coffee-ground emesis, hematemesis, hematochezia, or melanotic stools. GENITOURINARY: Denies frequency, urgency, nocturia, hematuria or incontinence (Storage/Irritative symptoms.) Low urinary stream, straining to void, urinary intermittency or hesitancy, splitting of the voiding stream, terminal dribbling. ENDOCRINOLOGIC: Denies polyuria, polydipsia, polyphagia or heat/cold intole rances. HEMATOLOGIC: Denies thrombophilia/previous clots, or coagulopathy/bleeding disorders. ONCOLOGIC: Denies personal history of malignancy. DERMATOLOGIC: Denies rashes or pruritus. PSYCHIATRIC: Denies any suicidal or homicidal ideation. Denies hallucinations. PHYSICAL EXAM GENERAL APPEARANCE: The patient is awake, alert, and oriented, in no acute cardiopulmonary distress. NEUROLOGICAL: Cranial nerves II-XII grossly intact. Motor is 5/5 in bilateral upper and lower extremities proximal to distal. No sensory deficits. HEENT: Face is symmetric. Pupils are equal and reactive. Extraocular movements are intact. NECK: Supple. No JVD. No thyromegaly. No submental, submandibular, pre- /postauricular, occipital or supraclavicular lymphadenopathy. CHEST: Normal chest expansion. No Telemetry. LUNGS: Absence of any rales, rhonchi or any wheezing. CARDIOVASCULAR: Regular. S1 and S2 normal. No appreciable rubs, murmurs or gallops. ABDOMEN: Soft, nontender, and nondistended. There is no rebound, voluntary guarding, or rigidity. : Deferred. No Miner. EXTREMITIES: Non-edematous and not cyanotic. No clubbing. Good capillary refill. SKIN: No skin breakdown. Vital Signs (last 8hr) Date Time Temp Pulse Resp B/P (MAP) Pulse Ox O2 Delivery O2 Flow Rate FiO2 07/19/25 11:58 97.5 105 19 159/83 95 Room Air 21 07/19/25 08:00 100 Room Air* 0 21 07/19/25 07:54 98.2 86 19 140/69 96 Room Air 21 LABS: Laboratory: Test 07/19/25 11:02 07/19/25 03:42 07/18/25 06:20 Range/Units Whole Blood Glucose 134 H 70-110 MG/DL White Blood Count 6.5 4.8-10.8 K/uL Red Blood Count 3.44 L 4.00-5.50 MIL/uL Hemoglobin 9.8 L 12.0-16.0 g/dL Hematocrit 32.0 L 36-48 % Mean Corpuscular Volume 93.0 79-99 fL Mean Corpuscular Hemoglobin 28.5 27.0-33.0 pg Mean Corpuscular Hemoglobin Concent 30.6 L 32.0-36.0 g/dL Red Cell Distribution Width 16.1 H 11.0-15.5 % Platelet Count 155 130-400 K/uL Mean Platelet Volume 9.8 7.5-10.5 fL Immature Granulocyte % (Auto) 0.3 0-1 % Neutrophils (%) (Auto) 65.5 40.0-77.0 % Lymphocytes (%) (Auto) 24.5 21.0-51.0 % Monocytes (%) (Auto) 8.4 3.0-13.0 % Eosinophils (%) (Auto) 0.8 0.0-8.0 % Basophils (%) (Auto) 0.5 0.0-5.0 % Neutrophils # (Auto) 4.2 1.8-7.7 K/uL Lymphocytes # (Auto) 1.6 1.0-4.8 K/uL Monocytes # (Auto) 0.5 0.1-1.0 K/uL Eosinophils # (Auto) 0.05 0.00-0.70 K/uL Basophils # (Auto) 0.03 0.00-0.20 K/uL Absolute Immature Granulocyte (auto 0.02 0-1 K/uL Nucleated Red Blood Cells 0.0 0.0-0.19 % Red Blood Cell Morphology See comments Sodium Level 140 136-145 mmol/L Potassium Level 4.1 3.5-5.1 mmol/L Chloride Level 112 H 101-111 mmol/L Carbon Dioxide Level 20 L 21-32 mmol/L Blood Urea Nitrogen 11 7-18 mg/dL Creatinine 0.5 0.5-1.0 mg/dL Glomerular Filtration Rate Calc 99 >90 mL/min Random Glucose 120 H 70-105 mg/dL Total Calcium 7.8 L 8.5-10.1 mg/dL Magnesium Level 2.00 1.80-2.40 mg/dL Prothrombin Time 12.0 H 9.6-11.6 SEC Prothromb Time International Ratio 1.15 0.85-1.15 Activated Partial Thromboplast Time 28.4 26.3-35.5 SEC Total Bilirubin 0.4 0.2-1.0 mg/dL Aspartate Amino Transf (AST/SGOT) 26 10-37 U/L Alanine Aminotransferase (ALT/SGPT) 33 12-78 U/L Alkaline Phosphatase 65 50-136 U/L Total Protein 4.9 L 6.0-8.3 g/dL Albumin 2.1 L 3.5-5.0 g/dL Current Medications Medications (Trade) Dose Ordered Sig/Kunal Route PRN Reason Start Time Stop Time Status Last Admin Dose Admin Dextrose (D50w) 50 ml AD PRN IV HYPOGLYCEMIA PROTOCOL 07/17/25 23:30 08/16/25 23:29 Glucagon (Glucagon 1mg Kit) 1 mg AD PRN IM HYPOGLYCEMIA PROTOCOL 07/17/25 23:30 08/16/25 23:29 Insulin Human Regular (humuLIN R 100 UNIT/ML 3ML) INSULIN SLIDING SCAL... ACHS SQ 07/18/25 07:30 08/17/25 07:29 Magnesium Sulfate 50 ml @ 0 mls/hr PROTOCOL PRN IV OTHER [SEE ORDER COMMENTS] 07/17/25 23:30 08/16/25 23:29 07/18/25 20:26 25 MLS/HR Ondansetron HCl (zoFRAN 4MG INJ) 4 mg Q6H PRN IV NAUSEA/VOMITING 07/17/25 23:30 08/16/25 23:29 Pantoprazole Sodium (PROTonix 40MG INJ) 40 mg DAILY IVP 07/18/25 09:00 08/17/25 08:59 07/19/25 08:02 40 MG Potassium Chloride 100 ml @ 50 mls/hr AD PRN IV POTASSIUM PROTOCOL 07/17/25 23:30 08/16/25 23:29 07/18/25 12:42 50 MLS/HR Potassium Chloride 100 ml @ 100 mls/hr AD PRN IV POTASSIUM PROTOCOL 07/18/25 20:00 07/19/25 07:36 DC Potassium Chloride (K-Dur/Klor-Con 20meq) 20 meq AD PRN PO POTASSIUM PROTOCOL 07/18/25 20:00 08/17/25 19:59 Potassium Chloride (KCl 10% Elixir 20meq/15ml) 20 meq AD PRN PO POTASSIUM PROTOCOL 07/18/25 20:00 08/17/25 19:59 07/18/25 23:42 20 MEQ Sodium Chloride 1,000 ml @ 100 mls/hr Q10H IV 07/17/25 23:30 08/16/25 23:29 07/18/25 09:44 100 MLS/HR DIAGNOSTICS / RADIOLOGY: [ ] ASSESSMENT: Esophageal dilatation POA Moderate Hiatal Hernia with stomach herniation per CT POA Diabetes with hyperglycemia POA Hypertension POA Incidental finding for right middle lobe nodule 0.4X0.[address] POA Hyperlipidemia POA Trace bilateral pleural effusion with left lower lobe atelectasis per CT POA History of Hiatal hernia repair X2 POA PLAN: As per RN patient was seen by the GI, unfortunately no notes were performed over the weekend. As per RN GI cleared patient to be discharged home EGD was performed on 07/18/2025 and patient is pending Botox injection for dilated esophagus outpatient. SLIPCOVER CUTTER reach out to GI regarding further recommendation and clearance to discharge. Once we will get also patient to be discharged home. In the meantime we will continue to monitor patient. A.m. labs Continue start NS @ 100 ml / hr Continue on Protonix 40 mg IV daily for GI prophylaxis We will replace electrolytes as needed per protocol We will start on insulin sliding scale AC & HS with hypoglycemia protocol We will add prn medication for fever,pain,cough , nausea and vomiting Home medication reconciled by SLIPCOVER CUTTER 07/19/2025 Bedside swallow eval gastroenterology consultation requested, follow up with recommendations Aspiration precaution We will request labs in am Further orders to follow depending on above results Case discussed with attending physician and came up with above treatment and plan of care. ATTESTATION BY PHYSICIAN I have seen and examined the patient. I reviewed the documentation, medical decision making, and treatment plan as noted by the mid-level provider above. I agree with the findings and plan of care. ROLANDO BARRETT MD, KATARZYNA B CABLE ARMORER OPERATOR Jul 19, 2025 12:13
--- NOTE | 2025-07-19 12:29 | DS ---
Discharge Summary Hospital Course Summary: DATE OF ADMISSION:[07/17/2025] DATE OF DISCHARGE:[07/19/2025] DISPOSITION:[Home] CONDITION:[Medically stable] CONSULTANTS:[GI] FOLLOW UP APPOINTMENTS:[PCP 2 to 3 days. GI within one week] PROCEDURES:[EGD 07/18/2025 which showed dilated esophagus] IMAGING: report attached to summary MICROBIOLOGY: report attached to summary ACTIVITY:[Independent] HOME MEDICATIONS: see [facility] NEW MEDICATIONS:[None] EMERGENCY INSTRUCTIONS: The patient was instructed to present to the nearest Emergency departmentr or call 911 once their symptoms will return or worsen Speedometer Inspector(s): Patient is 74 years old female who came to emergency department with a concern of esophageal dilation, dysphagia. GI was consulted and patient underwent chest CT which showed trace bilateral pleural effusion, left lower lobe atelectasis. Right middle lobe pulmonary nodule which was recommended to follow up outpatient in 12 months. Diffuse esophageal dilation with fluid retention, maximum diameter 3.8 cm. Moderate hiatal hernia with stomach herniation into the posterior mediastinum. GI consultation was recommended. Patient underwent EGD on 07/18/2025 and was showed dilated esophagus. Today patient was cleared by GI to be discharged home on clear liquid diet and follow up outpatient for Botox injection to esophagus when be done outpatient. Nurse practitioner reach out to GI regarding the above-stated statement and per GI patient already had multiple Botox injection in the past that help with the esophageal dilation. Patient was advised to follow up outpatient with the PCP in 2 to 3 days as well GI within one week. Patient to continue full liquid diet until further recommendation per GI. Procedure(s): REVIEW OF SYSTEMS CONSTITUTIONAL: Denies fevers, chills, or night sweats. No unintentional weight loss reported. NEUROLOGICAL: Denies headache, amaurosis fugax, motor weakness, sensory deficit, vertigo/spinning sensation, gait abnormalities, or tremors. ENT: No hearing loss, otalgia, otorrhea, rhinitis, rhinorrhea, hoarseness, or sore throat. CARDIOVASCULAR: Denies any exertional angina, dyspnea on exertion, orthopnea, paroxysmal nocturnal dyspnea, palpitations, life-threatening arrhythmias, claudication. PULMONARY: Denies any shortness of breath, cough, phlegm/sputum, hemoptysis, pleuritic chest pain. SLEEP: Denies morning headaches, daytime somnolence or napping. Denies difficulty falling asleep, staying asleep, waking from sleep. Denies knowledge of snoring. GASTROINTESTINAL: Complaints of dysphagia , nausea and vomiting Denies any type of dysphagia to either liquids or solids. Denies nausea, vomiting, pyrosis, early satiety, abdominal pain, diarrhea, constipation, or changes in stool consistency or caliber. Denies coffee-ground emesis, hematemesis, hematochezia, or melanotic stools. GENITOURINARY: Denies frequency, urgency, nocturia, hematuria or incontinence (Storage/Irritative symptoms.) Low urinary stream, straining to void, urinary intermittency or hesitancy, splitting of the voiding stream, terminal dribbling. ENDOCRINOLOGIC: Denies polyuria, polydipsia, polyphagia or heat/cold intolerances. HEMATOLOGIC: Denies thrombophilia/previous clots, or coagulopathy/bleeding disorders. ONCOLOGIC: Denies personal history of malignancy. DERMATOLOGIC: Denies rashes or pruritus. PSYCHIATRIC: Denies any suicidal or homicidal ideation. Denies hallucinations. PHYSICAL EXAM GENERAL APPEARANCE: The patient is awake, alert, and oriented, in no acute cardiopulmonary distress. NEUROLOGICAL: Cranial nerves II-XII grossly intact. Motor is 5/5 in bilateral upper and lower extremities proximal to distal. No sensory deficits. HEENT: Face is symmetric. Pupils are equal and reactive. Extraocular movements are intact. NECK: Supple. No JVD. No thyromegaly. No submental, submandibular, pre- /postauricular, occipital or supraclavicular lymphadenopathy. CHEST: Normal chest expansion. No Telemetry. LUNGS: Absence of any rales, rhonchi or any wheezing. CARDIOVASCULAR: Regular. S1 and S2 normal. No appreciable rubs, murmurs or gallops. ABDOMEN: Soft, nontender, and nondistended. There is no rebound, voluntary guarding, or rigidity. : Deferred. No Miner. EXTREMITIES: Non-edematous and not cyanotic. No clubbing. Good capillary refill. SKIN: No skin breakdown. Assessment/Plan: ASSESSMENT: Esophageal dilatation POA S/p EGD 07/18/2025 which showed dilated esophagus Moderate Hiatal Hernia with stomach herniation per CT POA Diabetes with hyperglycemia POA Hypertension POA Incidental finding for right middle lobe nodule 0.4X0.[address] POA Hyperlipidemia POA Trace bilateral pleural effusion with left lower lobe atelectasis per CT POA History of Hiatal hernia repair X2 POA Home Medications: Reported Medications Amlodipine Besylate (Amlodipine Besylate) 5 Mg Tablet, 5 MG PO DAILY, TAB 03/07/25 Glycopyrrolate (Glycopyrrolate) 2 Mg Tablet, 1 MG PO BID, TAB 03/07/25 Hydroxychloroquine Sulfate (Hydroxychloroquine Sulfate) 200 Mg Tablet, 300 MG PO BID, TAB 03/07/25 Prednisone (Prednisone) 5 Mg Tab.ds.pk, 5 MG PO DAILY 03/07/25 Note (Invokana) 100 Mg Tab, 100 MG PO DAILY, TAB 05/05/24 Atorvastatin Calcium (Atorvastatin Calcium) 20 Mg Tablet, 20 MG PO HS 12/21/23 Losartan Potassium (Losartan Potassium) 100 Mg Tablet, 100 MG PO DAILY, TAB 08/29/21 Atenolol (Atenolol) 100 Mg Tablet, 100 MG PO HS, TAB 08/28/21 Discontinued Scripts Amoxicillin/Potassium Clav (Augmentin 500-125 Tablet) 500 Mg-125 Mg Tablet, 1 TAB PO BID for 7 Days, #14 TAB 0 Refills Prov:ADALBERTO THOMPSON MD 03/15/25 Time spent arranging discharge: 31-60 minutes ATTESTATION BY PHYSICIAN I have seen and examined the patient. I reviewed the documentation, medical decision making, and treatment plan as noted by the mid-level provider above. I agree with the findings and plan of care. ROLANDO BARRETT MD, KATARZYNA B UNMANNED EQUIPMENT OPERATOR Jul 19, 2025 12:29
--- NOTE | 2025-07-19 12:47 | PN ---
GASTROENTEROLOGY PROGRESS NOTE Date of Visit: Jul 19, 2025 Time of Visit: 12:47 Events / Notes: [ ] Review of Systems: CONSTITUTIONAL: No malaise or change in sensation of wellbeing. ENMT: No rhinorrhea, otorrhea, sinus pain, ear ache. CARDIOVASCULAR: No angina, palpitations, orthopnea or paroxysmal dyspnea. RESPIRATORY: No SOB. GASTROINTESTINAL: No abdominal pain, nausea, vomiting, diarrhea, hematemesis, melena or change in the patient's habitual bowel movements consistency/number. GENITOURINARY: No dysuria, hematuria or change in bladder continence. MUSCULOSKELETAL: No new muscle pain or decrease in muscular strength. No new joint swelling, redness or tenderness. SKIN: No new rash. Physical Exam: GEN: Awake, alert, oriented in person, time and place, and in no acute distress. HEENT: No sinus tenderness. Tympanic membranes were not examined. No rhinorrhea. Oral pharyngeal mucosa is pink, moist and within normal limits. Neck is supple with no cervical lymphadenopathy, thyromegaly or JVD. CHEST: Inspection, palpation and percussion of the chest were unremarkable. Lung auscultation revealed normal breath sounds bilaterally. CARDIAC: PMI is within normal limits. Heart sounds are regular. Normal S1, S2. No gallop or murmur. ABD: Soft, non-tender and not distended. No peritoneal signs on palpation. No organomegaly. Normal bowel sounds. EXT: No cyanosis or clubbing. No edema. SKIN: Intact. No rashes. JOINTS: No evidence of synovitis or acute arthritis. NEURO: Alert and oriented to name, place and person. Cranial nerve examination is unremarkable. No focal motor deficits. Normal speech. Gait is normal. Strength is normal. Vital Signs (last 8hr) Date Time Temp Pulse Resp B/P (MAP) Pulse Ox O2 Delivery O2 Flow Rate FiO2 07/19/25 11:58 97.5 105 19 159/83 95 Room Air 21 07/19/25 08:00 100 Room Air* 0 21 07/19/25 07:54 98.2 86 19 140/69 96 Room Air 21 Laboratory: [ ] Laboratory: Test 07/19/25 11:02 07/19/25 03:42 07/18/25 06:20 Range/Units Whole Blood Glucose 134 H 70-110 MG/DL White Blood Count 6.5 4.8-10.8 K/uL Red Blood Count 3.44 L 4.00-5.50 MIL/uL Hemoglobin 9.8 L 12.0-16.0 g/dL Hematocrit 32.0 L 36-48 % Mean Corpuscular Volume 93.0 79-99 fL Mean Corpuscular Hemoglobin 28.5 27.0-33.0 pg Mean Corpuscular Hemoglobin Concent 30.6 L 32.0-36.0 g/dL Red Cell Distribution Width 16.1 H 11.0-15.5 % Platelet Count 155 130-400 K/uL Mean Platelet Volume 9.8 7.5-10.5 fL Immature Granulocyte % (Auto) 0.3 0-1 % Neutrophils (%) (Auto) 65.5 40.0-77.0 % Lymphocytes (%) (Auto) 24.5 21.0-51.0 % Monocytes (%) (Auto) 8.4 3.0-13.0 % Eosinophils (%) (Auto) 0.8 0.0-8.0 % Basophils (%) (Auto) 0.5 0.0-5.0 % Neutrophils # (Auto) 4.2 1.8-7.7 K/uL Lymphocytes # (Auto) 1.6 1.0-4.8 K/uL Monocytes # (Auto) 0.5 0.1-1.0 K/uL Eosinophils # (Auto) 0.05 0.00-0.70 K/uL Basophils # (Auto) 0.03 0.00-0.20 K/uL Absolute Immature Granulocyte (auto 0.02 0-1 K/uL Nucleated Red Blood Cells 0.0 0.0-0.19 % Red Blood Cell Morphology See comments Sodium Level 140 136-145 mmol/L Potassium Level 4.1 3.5-5.1 mmol/L Chloride Level 112 H 101-111 mmol/L Carbon Dioxide Level 20 L 21-32 mmol/L Blood Urea Nitrogen 11 7-18 mg/dL Creatinine 0.5 0.5-1.0 mg/dL Glomerular Filtration Rate Calc 99 >90 mL/min Random Glucose 120 H 70-105 mg/dL Total Calcium 7.8 L 8.5-10.1 mg/dL Magnesium Level 2.00 1.80-2.40 mg/dL Prothrombin Time 12.0 H 9.6-11.6 SEC Prothromb Time International Ratio 1.15 0.85-1.15 Activated Partial Thromboplast Time 28.4 26.3-35.5 SEC Total Bilirubin 0.4 0.2-1.0 mg/dL Aspartate Amino Transf (AST/SGOT) 26 10-37 U/L Alanine Aminotransferase (ALT/SGPT) 33 12-78 U/L Alkaline Phosphatase 65 50-136 U/L Total Protein 4.9 L 6.0-8.3 g/dL Albumin 2.1 L 3.5-5.0 g/dL Current Medications Medications (Trade) Dose Ordered Sig/Kunal Route PRN Reason Start Time Stop Time Status Last Admin Dose Admin Amlodipine Besylate (NorvASC 5MG TAB) 5 mg DAILY PO 07/20/25 09:00 08/19/25 08:59 Atenolol (Atenolol) 100 mg HS PO 07/19/25 21:00 08/18/25 20:59 Atorvastatin Calcium (LIPItor 20MG) 20 mg HS PO 07/19/25 21:00 08/18/25 20:59 Dextrose (D50w) 50 ml AD PRN IV HYPOGLYCEMIA PROTOCOL 07/17/25 23:30 08/16/25 23:29 Glucagon (Glucagon 1mg Kit) 1 mg AD PRN IM HYPOGLYCEMIA PROTOCOL 07/17/25 23:30 08/16/25 23:29 Home Med (Home Medication) (Glycopyrrolate 1 MG) BID PO 07/19/25 21:00 08/18/25 20:59 Home Med (Home Medication) (Invokana) 100 MG) DAILY PO 07/20/25 09:00 08/19/25 08:59 Hydroxychloroquine Sulfate (PLAQuenil 200MG) 300 mg BID PO 07/19/25 21:00 08/02/25 20:59 Insulin Human Regular (humuLIN R 100 UNIT/ML 3ML) INSULIN SLIDING SCAL... ACHS SQ 07/18/25 07:30 08/17/25 07:29 Losartan Potassium (CozAAR 100MG TAB) 100 mg DAILY PO 07/20/25 09:00 08/19/25 08:59 Magnesium Sulfate 50 ml @ 0 mls/hr PROTOCOL PRN IV OTHER [SEE ORDER COMMENTS] 07/17/25 23:30 08/16/25 23:29 07/18/25 20:26 25 MLS/HR Ondansetron HCl (zoFRAN 4MG INJ) 4 mg Q6H PRN IV NAUSEA/VOMITING 07/17/25 23:30 08/16/25 23:29 Pantoprazole Sodium (PROTonix 40MG INJ) 40 mg DAILY IVP 07/18/25 09:00 08/17/25 08:59 07/19/25 08:02 40 MG Potassium Chloride 100 ml @ 50 mls/hr AD PRN IV POTASSIUM PROTOCOL 07/17/25 23:30 08/16/25 23:29 07/18/25 12:42 50 MLS/HR Potassium Chloride 100 ml @ 100 mls/hr AD PRN IV POTASSIUM PROTOCOL 07/18/25 20:00 07/19/25 07:36 DC Potassium Chloride (K-Dur/Klor-Con 20meq) 20 meq AD PRN PO POTASSIUM PROTOCOL 07/18/25 20:00 08/17/25 19:59 Potassium Chloride (KCl 10% Elixir 20meq/15ml) 20 meq AD PRN PO POTASSIUM PROTOCOL 07/18/25 20:00 08/17/25 19:59 07/18/25 23:42 20 MEQ Prednisone (deltaSONE/ oraSONE 5MG) 5 mg DAILY PO 07/20/25 09:00 08/19/25 08:59 Sodium Chloride 1,000 ml @ 100 mls/hr Q10H IV 07/17/25 23:30 08/16/25 23:29 07/18/25 09:44 100 MLS/HR Diagnostics / Radiology: [COPY/PASTE HERE IF NO REPORTS PLEASE DELETE SECTION] Assessment: [ ] Plan: [ ] [facility] Jul 19, 2025 12:47
--- NOTE | 2025-07-19 13:00 | NUR ---
DISCHARGE INSTRUCTIONS GIVEN TO PATIENT. INSTRUCTED TO CONTINUE ALL HOME MEDICATIONS, FOLLOW UP WITH PRIMARY CARE PHYSICIAN IN 2-[address] FOLLOW UP WITH DR. CHAMORRO IN ONE WEEK. PATIENT VERBALIZED UNDERSTANDING.
--- NOTE | 2025-07-19 13:35 | NUR ---
IV REMOVED, DRESSING APPLIED. ALL BELONGINGS ARE WITH PATIENT.
[2025-07-19] MEDS ORDERED: ATENOLOL 50 MG TABLET PO SCH (21:00)
[2025-07-20] MEDS ORDERED: amLODIPine 5 MG TAB PO SCH (09:00)
== END 2025-07-19 13:45 | disposition home or self-care (01) | DRG 381 ==
LOC: EDH 18:14 → EDHIP 23:05 → 4CH 07-18 00:56
PROVIDERS: ADMIT Hospitalist; ATTEND Hospitalist
PROC: 0D758ZZ Dilation of Esophagus, Via Natural or Artificial Opening Endoscopic (ICD-10-PCS; principal; 2025-07-18)
DX: K22.10 Ulcer of esophagus without bleeding (principal); J90 Pleural effusion, not elsewhere classified; E11.65 Type 2 diabetes mellitus with hyperglycemia; I10 Essential (primary) hypertension; J98.11 Atelectasis; K22.89 Other specified disease of esophagus; K44.9 Diaphragmatic hernia without obstruction or gangrene; E78.00 Pure hypercholesterolemia, unspecified; K22.2 Esophageal obstruction; Z90.49 Acquired absence of other specified parts of digestive tract; Z90.710 Acquired absence of both cervix and uterus
CPT/HCPCS: 36415; 43249; 71250; 80048; 80053; 82948; 83735; 85025; 85610; 85730; 92610; 99285; A4606; G0378; J2003; J2470; J2704; J3475; J3480; J7030; A4215; A4221; A4222; A4223; A4620; A4657; A4663; A7002; C1726; J3490

== ENCOUNTER 2025-07-29 06:13 | Day surgery (SDC) | payer MEDICARE, OTHER ==
[~2025-07-29] VITALS: Ht 160 cm; Wt 57.2 kg
[2025-07-29] VITALS (11 sets, daily range): BP systolic 134–160; BP diastolic 60–76; PULSE 61–80; RESP 15–17; TEMP 97.3
[~2025-07-29 06:13] MED LIST changes: -AMOX-426 PO
[2025-07-29] MEDS ORDERED: FAMO40TA7 PO (06:58)
[2025-07-29] MEDS ORDERED: ESOM20CA51 PO (06:58)
[2025-07-29] MEDS ORDERED: METO10TA3 PO (06:58)
[2025-07-29] MEDS ORDERED: GLYCOPYRROLATE 1MG PO (06:58)
[2025-07-29] MEDS: 0.9%NACL 1000ML 1,000 ML IV ONE (06:59)
[2025-07-29] MEDS ORDERED: BOTULINUM TOXIN TYPE A 100 UNITS/VIAL INJ ONE (07:00)
[2025-07-29] MEDS ORDERED: LIDOCAINE PF 100MG/5ML (2%) SYRINGE 5ML ONE (07:58)
[2025-07-29] MEDS ORDERED: GLYCOPYRROLATE 0.2 MG/ML 5 ML VIAL ONE (07:58)
== END 2025-07-29 09:30 | disposition home or self-care (01) ==
LOC: ENDO 06:13 → DAH 06:13 → ENDO 09:30
PROVIDERS: ATTEND Surgery
DX: R13.10 Dysphagia, unspecified (principal); K22.2 Esophageal obstruction; K21.9 Gastro-esophageal reflux disease without esophagitis; I12.9 Hypertensive chronic kidney disease with stage 1 through stage 4 chronic kidney disease, or unspecified chronic kidney disease; E78.5 Hyperlipidemia, unspecified; E11.22 Type 2 diabetes mellitus with diabetic chronic kidney disease; N18.30 Chronic kidney disease, stage 3 unspecified; K31.84 Gastroparesis; K44.9 Diaphragmatic hernia without obstruction or gangrene; D50.9 Iron deficiency anemia, unspecified; M19.90 Unspecified osteoarthritis, unspecified site; Z90.710 Acquired absence of both cervix and uterus; Z98.51 Tubal ligation status; Z79.899 Other long term (current) drug therapy; Z98.890 Other specified postprocedural states
CPT/HCPCS: 82948; 43236; J7030; J2003; J2704; J3490 ×2; J0585; A4620; A4215; A4657

== ENCOUNTER 2025-07-30 17:04 | Inpatient (IN) | payer MEDICARE, OTHER ==
[~2025-07-30] VITALS: Ht 162.6 cm; Wt 55.2 kg
[~2025-07-30 17:04] MED LIST changes: -AMLO-257 PO; +ESOM20CA51 PO; +FAMO40TA7 PO; -GLYC2TAB21 PO; +GLYCOPYRROLATE 1MG PO; -HYDR200T75 PO; -INVOK100TB PO; +METO10TA3 PO
--- NOTE | 2025-07-30 17:24 | ERN ---
ED Note History of Present Illness Stated Complaint: HTN Chief Complaint: Hypertension Time Seen by MD: 17:09 Dictation: This is a 74-year-old female who was recently discharged from the hospital after course of hospitalization on 07/19 2025. Patient was noted to have dysphagia and workup revealed esophageal dilatation with a fluid retention as well as moderate hiatal hernia into the posterior mediastinum. Patient underwent EGD on 07/18 which showed a dilated esophagus and patient had received multiple Botox injections in the past for the achalasia. Shee came into the ER today complaining of abdominal pain and also that her blood pressure was running high. Patient's daughter she had Botox injection yesterday. She comes in with abdominal pain which is mostly in the midabdomen around the umbilical area with nausea but no vomitings. Temperature 99 pulse 67 respirations 18, blood pressure 188/92 with a pulse oximetry of 97% on room air Chronic medical problems include diabetes mellitus type 2, hypertension, hypercholesterolemia and gastroparesis Allergies: Coded Allergies: No Known Drug Allergies (Unverified Allergy, Unknown, 07/17/21) Home Meds Reported Medications [Glycopyrrolate 1MG] No Conflict Check, 1 TAB PO BID 07/29/25 Metoclopramide HCl (Metoclopramide HCl) 10 Mg Tablet, 1 TAB PO BID for 30 Days, #120 TAB 0 Refills 07/29/25 Esomeprazole Magnesium (Esomeprazole Magnesium) 20 Mg Capsule.dr, 1 CAP PO DAILY for acid reflux for 30 Days, #30 CAP 0 Refills 07/29/25 Famotidine (Famotidine) 40 Mg Tablet, 1 TAB PO DAILY for 30 Days, #30 TAB 0 Refills 07/29/25 Prednisone (Prednisone) 5 Mg Tab.ds.pk, 5 MG PO DAILY 03/07/25 Atorvastatin Calcium (Atorvastatin Calcium) 20 Mg Tablet, 20 MG PO HS 12/21/23 Losartan Potassium (Losartan Potassium) 100 Mg Tablet, 100 MG PO DAILY, TAB 08/29/21 Atenolol (Atenolol) 100 Mg Tablet, 100 MG PO HS, TAB 08/28/21 Discontinued Reported Medications Amlodipine Besylate (Amlodipine Besylate) 5 Mg Tablet, 5 MG PO DAILY, TAB 03/07/25 Glycopyrrolate (Glycopyrrolate) 2 Mg Tablet, 1 MG PO BID, TAB 03/07/25 Hydroxychloroquine Sulfate (Hydroxychloroquine Sulfate) 200 Mg Tablet, 300 MG PO BID, TAB 03/07/25 Note (Invokana) 100 Mg Tab, 100 MG PO DAILY, TAB 05/05/24 Past Medical History Past Medical History: Diabetes-Type II, High Cholesterol, Hypertension, Other Additional Past Medical Hx: GASTROPARESIS Surgical History: Appendectomy, Hysterectomy, Cholecystectomy, Other Surgical History Other: HIATAL HENIA Family History: Negative Social History: Negative, Lives with family History: Not Applicable RN Note Reviewed/Agreed w/PFSH: Yes Review of System Dictation Constitutional: Negative for fever,chills, and weight loss Eyes: Negative for injury, pain,redness, and discharge ENT: Negative for injury,pain or swelling Cardiovascular: Negative for chest pain, palpitations, and edema positive for high blood pressure Respiratory: Negative for shortness of breath, cough, and wheezing, Abdomen/GI: Positive for abdominal pain, nausea, vomiting, diarrhea, and constipation Back: Negative for injury and pain : Negative for injury, bleeding and discharge MS/Extremity: Negative for injury and deformity Skin: Negative for rash, and discoloration Neuro: Negative for headache, weakness, numbness, tingling, and seizure Psych: Negative for suicide ideation, homicidal ideation, and hallucinations Initial Vital Sign VS Vital Signs Date Time Temp Pulse Resp B/P (MAP) Pulse Ox O2 Delivery O2 Flow Rate FiO2 07/30/25 17:07 97.0 67 18 188/92 97 07/30/25 17:57 Room Air* 0 21 Physical Exam Dictation General: awake, alert, NAD chronically ill-appearing very emaciated female Head/Face: Normocephalic, atraumatic Eyes: PERRL, EOMI, vision at baseline ENT: oral cavity clear, TMs clear, no signs of infection Neck: Trachea midline, supple, no nuchal rigidity Cardiovascular: RRR, normal S1/S2, No MRGs, no JVD Respiratory: CTAB, no respiratory distress, No rales or wheezes Abdomen: Soft, mild tenderness to deep palpation in the midabdomen, non- distended, normal bowel sounds, no guarding or rebound. Skin: Warm, dry, normal turgor, no rash MS/Extremity: Pulses equal, no cyanosis, neurovascular intact, FROM Neuro: COAx4, GCS 15, strength 5/5, CN 2-12 intact, normal cerebellar exam, n ormal gait, Psych: Normal behavior, mood, and affect normal Extremities-trace edema without any palpable cords, Homans sign is negative Results (Laboratory/Radiology) Laboratory/Radiology Laboratory Tests Test 07/30/25 17:32 07/30/25 21:27 White Blood Count 6.7 K/uL (4.8-10.8) Red Blood Count 4.09 MIL/uL (4.00-5.50) Hemoglobin 11.4 g/dL (12.0-16.0) L Hematocrit 36.1 % (36-48) Mean Corpuscular Volume 88.3 fL (79-99) Mean Corpuscular Hemoglobin 27.9 pg (27.0-33.0) Mean Corpuscular Hemoglobin Concent 31.6 g/dL (32.0-36.0) L Red Cell Distribution Width 15.9 % (11.0-15.5) H Platelet Count 207 K/uL (130-400) Mean Platelet Volume 8.9 fL (7.5-10.5) Immature Granulocyte % (Auto) 0.4 % (0-1) Neutrophils (%) (Auto) 85.6 % (40.0-77.0) H Lymphocytes (%) (Auto) 9.8 % (21.0-51.0) L Monocytes (%) (Auto) 3.9 % (3.0-13.0) Eosinophils (%) (Auto) 0.0 % (0.0-8.0) Basophils (%) (Auto) 0.3 % (0.0-5.0) Neutrophils # (Auto) 5.8 K/uL (1.8-7.7) Lymphocytes # (Auto) 0.7 K/uL (1.0-4.8) L Monocytes # (Auto) 0.3 K/uL (0.1-1.0) Eosinophils # (Auto) 0.00 K/uL (0.00-0.70) Basophils # (Auto) 0.02 K/uL (0.00-0.20) Absolute Immature Granulocyte (auto 0.03 K/uL (0-1) Nucleated Red Blood Cells 0.0 % (0.0-0.19) White Cell Morphology Comment See comments Sodium Level 138 mmol/L (136-145) Potassium Level 4.4 mmol/L (3.5-5.1) Chloride Level 105 mmol/L (101-111) Carbon Dioxide Level 24 mmol/L (21-32) Blood Urea Nitrogen 10 mg/dL (7-18) Creatinine 0.8 mg/dL (0.5-1.0) Glomerular Filtration Rate Calc 78 mL/min (>90) Random Glucose 173 mg/dL (70-105) H Total Calcium 8.1 mg/dL (8.5-10.1) L Total Bilirubin 0.3 mg/dL (0.2-1.0) Direct Bilirubin 0.1 mg/dL (0.0-0.3) Aspartate Amino Transf (AST/SGOT) 35 U/L (10-37) Alanine Aminotransferase (ALT/SGPT) 36 U/L (12-78) Alkaline Phosphatase 108 U/L (50-136) Total Protein 6.3 g/dL (6.0-8.3) Albumin 2.6 g/dL (3.5-5.0) L Urine Color LIGHT-YELLOW (YELLOW) Urine Appearance CLEAR (CLEAR) Urine pH 5.5 (5.0-8.0) Urine Specific [place] 1.016 (1.001-1.031) Urine Protein NEGATIVE mg/dL (NEGATIVE) Urine Glucose (UA) >=1000 mg/dL (NEGATIVE) H Urine Ketones 20 mg/dL (NEGATIVE) H Urine Occult Blood NEGATIVE (NEGATIVE) Urine Nitrate NEGATIVE (NEGATIVE) Urine Bilirubin NEGATIVE mg/dL (NEGATIVE) Urine Urobilinogen 0.2 mg/dL (0.2-1.0) Urine Leukocyte Esterase NEGATIVE [place]/uL Urine RBC 0-1 /HPF (0-1) Urine WBC 2-5 /HPF (0-1) H Urine Squamous Epithelial Cells RARE /HPF (0-2) Urine Bacteria RARE /HPF (None Seen) Labs Reviewed?: Yes CT Scan Comment: REASON: dysphagia ORDERING PHYSICIAN: PINA BLACKWOOD MD PROCEDURE: CHEST WO - CT CHEST W/O CONTRAST EXAM: CT Chest Without IV Contrast CLINICAL HISTORY: Dysphagia TECHNIQUE: Axial computed tomography images of the chest were obtained without intravenous contrast. Multiplanar reformations were reviewed. COMPARISON: March 09, 2025, chest radiograph, single view.FINDINGS: LUNGS: Left lower lobe subsegmental atelectasis is present. A small pulmonary nodule is seen in the right middle lobe measuring approximately 0.4 x 0.3 cm, series 3 image 33. No focal consolidation or pulmonary mass. PLEURAL SPACES: Trace bilateral pleural effusions are present. No pneumothorax. ESOPHAGUS AND MEDIASTINUM: The esophagus is diffusely dilated and fluid-filled along its entire length, with a maximum diameter of approximately 3.8 cm. A moderate hiatal hernia is present, with the stomach herniating through a widened esophageal hiatus into the posterior mediastinum. HEART AND GREAT VESSELS: The heart is normal in size. No pericardial effusion. Mild atherosclerotic calcification of the thoracic aorta. No aneurysm. THYROID: Coarse calcified nodules are noted within the left lobe of the thyroid gland. LYMPH NODES: No mediastinal, hilar, or axillary lymphadenopathy. UPPER ABDOMEN: Visualized upper abdominal solid organs are unremarkable. BONES: Moderate degenerative changes of the thoracic spine with osteophyte formation and endplate sclerosis. No acute osseous abnormality.IMPRESSION: Diffuse esophageal dilation with fluid retention, maximum diameter 3.8 cm. Moderate hiatal hernia with stomach herniation into the posterior mediastinum. Gastroenterology consultation is recommended, and upper gastrointestinal endoscopy or barium esophagram may be considered Right middle lobe pulmonary nodule, measuring 0.4 x 0.3 cm. Follow-up CT chest at 12 months is recommended to assess the stability of the right middle lobe pulmonary nodule. Trace bilateral pleural effusions. Left lower lobe subsegmental atelectasis. /[place] DICTATED BY: ESTHER CALDERA MD DATE: 07/17/252115 ELECTRONICALLY SIGNED BY: ESTHER CALDERA MD DATE: 07/17/252115 ED Course ED Course Orders Procedure Category Date Status Time Cbc With Differential LAB 07/30/25 Complete 17:22 Basic Metabolic Panel LAB 07/30/25 Complete 17:22 Urinalysis Profile LAB 07/30/25 Complete 17:22 Morphine 2mg Syg PHA 07/30/25 Complete (Morphine 2mg Syg) 17:30 Ondansetron 4mg Inj PHA 07/30/25 Complete (Zofran 4mg Inj) 17:30 Ct Abdomen/Pelvis W/O CT 07/30/25 Resulted Contrast 18:48 Morphine 2mg Syg PHA 07/30/25 Complete (Morphine 2mg Syg) 20:00 Hepatic Function Panel LAB 07/30/25 Complete 21:04 Hydralazine 20mg Inj PHA 07/30/25 Complete (Apresoline 20mg In 21:30 Ketorolac PHA 07/30/25 Complete Tromethamine 15mg/Ml 22:08 Ketorolac PHA 07/30/25 Complete Tromethamine 15mg/Ml 22:30 Metoclopramide 10 PHA 07/30/25 Complete Mg/2 Ml Vial (Reglan 1 22:30 Gastroenterology CONPHYSVC 07/30/25 Transmitted Consult 22:39 Current Medications Medications (Trade) Dose Ordered Sig/Kunal Route PRN Reason Start Time Stop Time Status Last Admin Dose Admin Hydralazine HCl (APRESOLine 20MG INJ) 10 mg ONCE ONCE IV 07/30/25 21:30 07/30/25 22:07 DC 07/30/25 22:24 Ketorolac Tromethamine (toRADol) 15 mg ONCE ONCE IV 07/30/25 22:30 07/30/25 22:31 DC 07/30/25 22:24 Ketorolac Tromethamine (toRADol) 15 mg STK-MED ONCE .ROUTE 07/30/25 22:08 07/30/25 22:08 DC Metoclopramide HCl (regLAN 10MG IV) 5 mg ONCE ONCE IVP 07/30/25 22:30 07/30/25 22:31 DC 07/30/25 22:25 Morphine Sulfate (morPHINE 2MG SYG) 2 mg ONCE ONCE IVP 07/30/25 17:30 07/30/25 17:31 DC 07/30/25 18:25 Morphine Sulfate (morPHINE 2MG SYG) 2 mg ONCE ONCE IVP 07/30/25 20:00 07/30/25 20:01 DC 07/30/25 19:58 Ondansetron HCl (zoFRAN 4MG INJ) 4 mg ONCE ONCE IVP 07/30/25 17:30 07/30/25 17:31 DC 07/30/25 18:09 Vital Signs Date Time Temp Pulse Resp B/P (MAP) Pulse Ox O2 Delivery O2 Flow Rate FiO2 07/30/25 22:24 84 179/83 07/30/25 20:32 82 20 190/93 98 Room Air* 0 07/30/25 17:57 99.0 73 22 184/85 98 Room Air* 0 07/30/25 17:07 97.0 67 18 188/92 97 Medical Decision Making MDM Differential diagnosis -Renal colic, biliary colic Gastritis, esophagitis, gastroesophageal reflux disease, acute cholecystitis, peptic ulcer disease, gastroenteritis, colitis, constipation, pancreatitis, diverticulitis This is a 74-year-old female who was recently discharged from the hospital after course of hospitalization on 07/19 2025. Patient was noted to have dysphagia and workup revealed esophageal dilatation with a fluid retention as well as moderate hiatal hernia into the posterior mediastinum. Patient underwent EGD on 07/18 which showed a dilated esophagus and patient had received multiple Botox injections in the past for the achalasia. Shee came into the ER today complaining of abdominal pain and also that her blood pressure was running high. Patient's daughter she had Botox injection yesterday. She comes in with abdominal pain which is mostly in the midabdomen around the umbilical area with nausea but no vomitings. Temperature 99 pulse 67 respirations 18, blood pressure 188/92 with a pulse oximetry of 97% on room air Chronic medical problems include diabetes mellitus type 2, hypertension, hypercholesterolemia and gastroparesis Patient received multiple rounds of pain medication including morphine 8 mg in total, ketorolac 15 mg, Reglan. Patient is a remains with abdominal pain. Laboratory was unremarkable. CT images she will possible restrictive of CBD I discussed the case with the Dr. Trevizo venetian blind washer, states that if patient remains in the hospital admitted she will consult. I discussed the case with the hospitalist, plan to admit the patient due to intractable abdominal pain and consult for GI to evaluate the patient tomorrow as well. EXAM: CT Abdomen and Pelvis Without IV contrast CLINICAL HISTORY: Patient with achalasia status post Botox presents with mid-abdominal pain. TECHNIQUE: Axial computed tomography images of the abdomen and pelvis without intravenous contrast. CONTRAST: No IV contrast. COMPARISON: CT abdomen and pelvis dated March 07, 2025. FINDINGS: LUNG BASES: New bilateral mild pleural effusions with adjacent basal subsegmental atelectasis. LIVER: Central intrahepatic biliary radical dilatation. Dilatation of the common hepatic duct measuring 1.5 cm and common bile duct measuring 1.9 cm with smooth tapering in the terminal course, concerning for a distal CBD stricture. Recommend MRCP. GALLBLADDER AND BILE DUCTS: Overdistended gallbladder. No radioopaque gallstones are seen. PANCREAS: Unremarkable. SPLEEN: Unremarkable. ADRENAL GLANDS: Unremarkable. KIDNEYS, URETERS, AND BLADDER: The kidneys appear within normal limits. There is no hydronephrosis or hydroureter. No urinary calculi are seen. Bilateral minimal non-specific perinephric fat stranding. STOMACH AND BOWEL: Moderate-sized hiatal hernia. Mild constipation. Unremarkable appearance of the stomach and bowel otherwise. No evidence of bowel obstruction. No evidence suggesting enteritis or colitis. APPENDIX: No evidence of acute appendicitis on CT examination. PERITONEUM: New mild ascites. Generalized anasarca. No free air. LYMPH NODES: No lymphadenopathy is evident. REPRODUCTIVE: Unremarkable as visualized. VASCULATURE: No evidence of abdominal aortic aneurysm. Multifocal atherosclerotic calcifications in the abdominal aorta and bilateral iliac arteries. BONES: Multilevel moderate degenerative changes in the spine. No aggressive appearing osseous lesion. No acute osseous pathology evident otherwise. IMPRESSION: Central intrahepatic biliary radical dilatation with dilatation of the common hepatic duct (1.5 cm) and common bile duct (1.9 cm) with smooth tapering in the terminal course, concerning for distal CBD stricture. Recommend MRCP. New bilateral mild pleural effusions with adjacent basal subsegmental atelectasis. New mild ascites and generalized anasarca. Moderate-sized hiatal hernia. Mild constipation. Bilateral minimal non-specific perinephric fat stranding. Multifocal atherosclerotic calcifications in the abdominal aorta and bilateral iliac arteries. Problem List Problem List: (1) Abdominal pain (2) Achalasia of esophagus (3) S/P Botox injection (4) Uncontrolled hypertension (5) Hiatal hernia DX & DISP Disposition: Observation Departure Impression: Primary Impression: Abdominal pain Additional Impressions: Achalasia of esophagus, Esophageal dilatation, Hiatal hernia, S/P Botox injection, Uncontrolled hypertension Condition: Stable Referrals: SHANA LANDEROS MD (PCP) Patient was accepted by the hospitalist ANA MARIA Lentz MD Jul 30, 2025 17:24 SAM SANDY MD Jul 30, 2025 22:44
[2025-07-30 17:40] LABS: IMMATURE GRANULOCYTE ABSOLUTE 0.03 K/uL (0-1); NUCLEATED RED BLOOD CELLS 0.0 % (0.0-0.19); PLATELET COUNT (AUTO) 207 K/uL (130-400); RED BLOOD CELL COUNT(AUTO) 4.09 MIL/uL (4.00-5.50); RED CELL DISTRIBUTION WIDTH 15.9 % (11.0-15.5); WHITE BLOOD COUNT (AUTO) 6.7 K/uL (4.8-10.8)
[2025-07-30 18:19] LABS: CREATININE 0.8 mg/dL (0.5-1.0); GLOMERULAR FILTR. RATE CALC 78.0 mL/min (>90); GLUCOSE,RANDOM 173.0 mg/dL (70-105); SODIUM SERUM 138.0 mmol/L (136-145); UREA NITROGEN, BLOOD 10.0 mg/dL (7-18)
--- NOTE | 2025-07-30 20:25 | HMCIMG ---
EXAM: CT Abdomen and Pelvis Without IV contrast CLINICAL HISTORY: Patient with achalasia status post Botox presents with mid-abdominal pain. TECHNIQUE: Axial computed tomography images of the abdomen and pelvis without intravenous contrast. CONTRAST: No IV contrast. COMPARISON: CT abdomen and pelvis dated March 07, 2025. FINDINGS: LUNG BASES: New bilateral mild pleural effusions with adjacent basal subsegmental atelectasis. LIVER: Central intrahepatic biliary radical dilatation. Dilatation of the common hepatic duct measuring 1.5 cm and common bile duct measuring 1.9 cm with smooth tapering in the terminal course, concerning for a distal CBD stricture. Recommend MRCP. GALLBLADDER AND BILE DUCTS: Overdistended gallbladder. No radioopaque gallstones are seen. PANCREAS: Unremarkable. SPLEEN: Unremarkable. ADRENAL GLANDS: Unremarkable. KIDNEYS, URETERS, AND BLADDER: The kidneys appear within normal limits. There is no hydronephrosis or hydroureter. No urinary calculi are seen. Bilateral minimal non-specific perinephric fat stranding. STOMACH AND BOWEL: Moderate-sized hiatal hernia. Mild constipation. Unremarkable appearance of the stomach and bowel otherwise. No evidence of bowel obstruction. No evidence suggesting enteritis or colitis. APPENDIX: No evidence of acute appendicitis on CT examination. PERITONEUM: New mild ascites. Generalized anasarca. No free air. LYMPH NODES: No lymphadenopathy is evident. REPRODUCTIVE: Unremarkable as visualized. VASCULATURE: No evidence of abdominal aortic aneurysm. Multifocal atherosclerotic calcifications in the abdominal aorta and bilateral iliac arteries. BONES: Multilevel moderate degenerative changes in the spine. No aggressive appearing osseous lesion. No acute osseous pathology evident otherwise. IMPRESSION: Central intrahepatic biliary radical dilatation with dilatation of the common hepatic duct (1.5 cm) and common bile duct (1.9 cm) with smooth tapering in the terminal course, concerning for distal CBD stricture. Recommend MRCP. New bilateral mild pleural effusions with adjacent basal subsegmental atelectasis. New mild ascites and generalized anasarca. Moderate-sized hiatal hernia. Mild constipation. Bilateral minimal non-specific perinephric fat stranding. Multifocal atherosclerotic calcifications in the abdominal aorta and bilateral iliac arteries. /[place]
[2025-07-30 21:22] LABS: ASPARTATE AMINOTRANSFERASE 35.0 U/L (10-37); TOTAL PROTEIN, SERUM 6.3 g/dL (6.0-8.3)
[2025-07-30 21:39] LABS: APPEARANCE,URINE CLEAR (CLEAR); GLUCOSE, URINE (UA) >=1000 mg/dL (NEGATIVE); LEUKOCYTE ESTERASE ,URINE NEGATIVE Leu/uL (NEGATIVE); NITRATE,URINE NEGATIVE (NEGATIVE); OCCULT BLOOD,URINE NEGATIVE (NEGATIVE)
[2025-07-30 21:42] LABS: ADD UA MICROSCOPIC YES
[2025-07-30 21:44] LABS: SQUAMOUS EPITHELIAL CELL,UR RARE /HPF (0-2)
[2025-07-30] MEDS: 0.9%NACL 1000ML 1,000 ML IV SCH (23:00)
[2025-07-30 23:45] VITALS: BP 147/67; PULSE 91; RESP 20; TEMP 98.3
[2025-07-31] VITALS (8 sets, daily range): BP systolic 134–160; BP diastolic 66–79; PULSE 77–87; RESP 16–20; TEMP 98–98.7; O2SAT 95–96
--- NOTE | 2025-07-31 00:02 | NUR ---
PATIENT WAS RECEIVED AT [id number]
[2025-07-31 04:58] LABS: IMMATURE GRANULOCYTE ABSOLUTE 0.04 K/uL (0-1); NUCLEATED RED BLOOD CELLS 0.0 % (0.0-0.19); PLATELET COUNT (AUTO) 201 K/uL (130-400); RED BLOOD CELL COUNT(AUTO) 3.85 MIL/uL (4.00-5.50); RED CELL DISTRIBUTION WIDTH 16.0 % (11.0-15.5); WHITE BLOOD COUNT (AUTO) 5.9 K/uL (4.8-10.8)
[2025-07-31 05:07] LABS: CREATININE 0.8 mg/dL (0.5-1.0); GLOMERULAR FILTR. RATE CALC 78.0 mL/min (>90); GLUCOSE,RANDOM 121.0 mg/dL (70-105); SODIUM SERUM 136.0 mmol/L (136-145); UREA NITROGEN, BLOOD 10.0 mg/dL (7-18)
[2025-07-31 05:15] LABS: ASPARTATE AMINOTRANSFERASE 26.0 U/L (10-37); TOTAL PROTEIN, SERUM 5.9 g/dL (6.0-8.3)
[2025-07-31] MEDS ORDERED: PoTASSium chloRIDE 20MEQ ER 20 MEQ ERTAB PO PRN (06:30)
[2025-07-31] MEDS: MAGNESIUM 2GM PREMIX 50ML 50 ML IV PRN (06:59)
[2025-07-31] MEDS ORDERED: GADOTERATE MEGLUMINE 10 MMOL/20 ML VIAL IV ONE (08:52)
--- NOTE | 2025-07-31 10:37 | NUR ---
REDNESS ON SACRAL AREA. ASSESSED PATIENTS SKIN. REDNESS ON SACRAL AREA, BLANCHABLE. EDUCATED PATIENT ON THE IMPORTANCE OF REPOSITIONING Q2HRS. WILL CONTINUE TO MONITOR.
--- NOTE | 2025-07-31 18:42 | HP ---
ADMITTING HISTORY AND PHYSICAL CHIEF COMPLAINT: Abdominal pain and nausea. HISTORY OF PRESENT ILLNESS: The patient came with abdominal pain. The patient also has elevated blood pressure. The patient has accelerated hypertension with abdominal pain and nausea. The patient has Botox injections for achalasia. The patient has no definite vomiting, but the patient says he has persistent nausea. No diarrhea at this time. No fever, no chills. The patient was hospitalized with abdominal pain, nausea, CBD duct stricture, and accelerated hypertension. PAST MEDICAL HISTORY: Significant for diabetes mellitus, hypertension, aclasia, gastroparesis, and hypercholesterolemia. PAST SURGICAL HISTORY: Significant for hysterectomy, appendectomy, and cholecystectomy. ALLERGIES: No known drug allergies. MEDICATIONS: The patient takes metoclopramide, esomeprazole, famotidine, prednisone 5 mg daily, atorvastatin 20 mg, losartan 100 mg, atenolol 100 mg, amlodipine 5 mg, and hydroxychloroquine. SOCIAL HISTORY: No history of smoking, alcohol, or substance use. FAMILY HISTORY: The patient lives with the family members. Family history is noncontributory. REVIEW OF SYSTEMS: HEENT: Negative. CARDIOVASCULAR: Negative for chest pain. RESPIRATORY: Denies any shortness of breath. GASTROINTESTINAL: Abdominal pain present. Nausea present. GENITOURINARY SYSTEM: Negative. MUSCULOSKELETAL: Joint pains. PHYSICAL EXAMINATION: GENERAL: The patient is awake, alert, oriented to person, place and time. VITAL SIGNS: Significant for temperature 97, pulse 60, respirations 16, blood pressure 180/90, pulse ox is 97%. HEENT: Pupils equal. Mucous membranes appear to be dry. NECK: Supple. LUNGS: Mostly decreased breath sounds. No wheezing and no rhonchi. HEART: Regular rate and rhythm. ABDOMEN: Soft and nontender. NEUROLOGICAL: No focal deficits noted. LABORATORY DATA: Significant for white count is 6.7, platelet count is 207. Sodium is 138, potassium 4.4, creatinine 0.8, calcium is 8.1, alkaline phosphatase is 108, AST is 35. Urinalysis is basically sugar more than 1000, otherwise negative. IMAGING STUDIES: CT scan of the chest shows moderate DJD of the thoracic spine and diffuse esophageal dilatation with fluid retention, maximum diameter of 3.8 cm, hiatal hernia noted. The patient has a right middle lobe pulmonary nodule also noted. ASSESSMENT AND PLAN: * Abdominal pain, achalasia with significant dilatation of the esophagus. The patient is going to get a GI consultation at this time. * Common bile duct stricture. The patient is going to get MRCP at this time. * Nausea. The patient is on Zofran. The patient is on Dilaudid for the pain control. The patient is on Protonix IV. * Hypertension. Resume the home medications at this time. * The patient is on GI prophylaxis and DVT prophylaxis. Condition was discussed. Questions were answered. TID: [id number] RECEIPT: [id number]
[2025-07-31] MEDS: ATENOLOL 50 MG TABLET PO SCH (20:03)
--- NOTE | 2025-07-31 22:18 | PN ---
SUBJECTIVE: The patient has epigastric upper abdominal pain. OBJECTIVE: VITAL SIGNS: Blood pressure is 130/60, pulse 60, respiratory rate is 16. LUNGS: Decreased breath sounds. No wheezes or rhonchi. HEART: Regular rate and rhythm. ABDOMEN: Soft, nontender. NEUROLOGICAL: No focal deficits noted. ASSESSMENT AND PLAN: 1. Abdominal pain, esophageal dilatation, common bile duct stricture. The patient is getting MRCP today. 2. Hypertension, resume the home medications including amlodipine. 3. Lung nodule, the patient is going to get a repeat CT scan in 6 months to 1 year. Condition discussed. The patient's care will be transferred to Dr. Bosch. TID: [id number] RECEIPT: [id number]
[2025-08-01] VITALS (7 sets, daily range): BP systolic 115–159; BP diastolic 62–88; PULSE 71–88; RESP 12–20; TEMP 97.7–98.8; O2SAT 96–97
[2025-08-01 05:56] LABS: ASPARTATE AMINOTRANSFERASE 25.0 U/L (10-37); CREATININE 0.5 mg/dL (0.5-1.0); GLOMERULAR FILTR. RATE CALC 99.0 mL/min (>90); GLUCOSE,RANDOM 81.0 mg/dL (70-105); SODIUM SERUM 139.0 mmol/L (136-145); TOTAL PROTEIN, SERUM 5.5 g/dL (6.0-8.3); UREA NITROGEN, BLOOD 7.0 mg/dL (7-18)
[2025-08-01] MEDS: PoTASSium chl 10% ELIXIR 20MEQ 20 MEQ/15 ML UDCUP PO PRN (07:41)
[2025-08-01] MEDS ORDERED: NON-FORMULARY MEDICATION 1 EACH (Famotidine 1 TAB) PO SCH (09:00)
--- NOTE | 2025-08-01 11:25 | HMCIMG ---
EXAM: MR Abdomen with Intravenous Contrast / MRCP CLINICAL HISTORY: Abdominal pain and hernia; prior CT demonstrating biliary ductal dilatation and suspected distal common bile duct stricture. TECHNIQUE: Multisequence, multiplanar magnetic resonance images of the abdomen were obtained with intravenous contrast, including dedicated MRCP sequences. CONTRAST: Intravenous contrast administered. COMPARISON: CT Abdomen/Pelvis without contrast dated 07/30/[address] Abdomen/Pelvis dated 03/07/2025. FINDINGS: Study limited by patient motion. LOWER THORAX: Bilateral pleural effusions are present, measuring up to approximately 5 cm in AP thickness on the left and 3.3 cm in AP thickness on the right, with associated dependent basilar atelectasis. Diffuse chest wall edema is noted. LIVER: Intrahepatic biliary radical dilatation involves both lobes, more pronounced in the left lobe. No definite focal hepatic mass is identified on this examination. GALLBLADDER AND BILE DUCTS: The gallbladder is markedly distended without definite intraluminal gallstones. The common bile duct is diffusely dilated up to approximately 1.8 cm, with smooth upstream dilatation of the central intrahepatic ducts. There is abrupt tapering at the ampullary end of the distal common bile duct where an infiltrative periampullary soft-tissue lesion measuring approximately 1.0 x 0.7 x 1.8 cm demonstrates relatively homogeneous enhancement. On MRCP, this corresponds to an obstructing periampullary mass with no evidence of choledocholithiasis, in keeping with high-grade distal CBD obstruction. PANCREAS: The main pancreatic duct is smoothly dilated to approximately 0.8 cm, extending to the ampulla, constituting a double duct sign in conjunction with the distal CBD obstruction. The pancreatic parenchyma enhances homogeneously without a discrete upstream pancreatic mass or features of acute pancreatitis. SPLEEN: Normal in size and signal without focal lesion. ADRENALS: Unremarkable bilaterally. KIDNEYS: Kidneys are normal in size and contour without hydronephrosis or obstructing calculus. Extensive bilateral perinephric fat stranding is present, favored to reflect systemic edema rather than a primary renal inflammatory process. STOMACH AND BOWEL: A large hiatal hernia is present, with herniated stomach and hiatus measuring approximately 7.8 x 4.5 cm. No small bowel obstruction, focal bowel wall thickening, or colitis is identified on the imaged segments. 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 VASCULATURE: No abdominal aortic aneurysm. Multifocal atherosclerotic calcifications are present in the abdominal aorta and iliac arteries. PERITONEUM AND ABDOMINAL WALL: Mild ascites is present. Diffuse abdominal wall and subcutaneous edema are in keeping with anasarca. IMPRESSION: * Enhancing infiltrative periampullary mass measuring approximately 1.0 x 0.7 x 1.8 cm causing abrupt cut-off of a markedly dilated common bile duct and smooth dilatation of the main pancreatic duct to 0.8 cm (double duct sign), highly suspicious for periampullary malignancy as the cause of high-grade distal common bile duct obstruction. * Intrahepatic and extrahepatic biliary ductal dilatation involving both hepatic lobes, more pronounced on the left, likely secondary to distal obstructing periampullary lesion. * Multiple enlarged periportal and retroperitoneal lymph nodes, worrisome for regional jose metastatic disease. * Large hiatal hernia measuring approximately 7.8 x 4.5 cm. * Bilateral pleural effusions (up to 5 cm AP on the left and 3.3 cm AP on the right) with basilar atelectasis, mild ascites, and diffuse body wall and perinephric edema consistent with anasarca. /[place]
--- NOTE | 2025-08-01 12:40 | NUR ---
DCP: INITIAL ASSESSMENT READMISSION: Last discharged from this hospital on 07/19/25. Patient lives with grandson. She has no home health but does have a private sitter that comes in X 6 days from 10am-4pm. Patient has wheelchair, rollator, shower chair, BSC, BPM, and glucometer at home. She does not use insulin. Patient needs help with ADLs and does not drive. Family assists with transportation. PCP is Dr. Naldo Bosch. Pharmacy is [facility] in [place]. Patient voiced no safety concerns regarding returning home and states she has no difficulty with housing or buying food. DCP is home.
--- NOTE | 2025-08-01 14:53 | NUR ---
INFORMED DR BYRNE ABNORMAL MRCP VIA MESSAGE AWAITING RETURN CALL
[2025-08-01] MEDS: LOPERAMIDE HCL 2 MG CAP PO PRN (17:24)
[2025-08-01] MEDS: CHOLESTYRAMINE PACKET 4 GM PACKET PO SCH (19:36)
--- NOTE | 2025-08-01 23:01 | PN ---
SUBJECTIVE: The patient was not be able to tolerate the liquid diet. When trying to advance, the patient to get diarrhea and nausea. The patient is going to switch back to the liquid diet only. The patient's CA 19-9 is elevated to 70. The patient also has MRCP done, found to have a periampullary suspicion for malignant neoplasm. The patient is evaluated by Dr. Elena in the past. OBJECTIVE: VITAL SIGNS: Blood pressure is 130/60, pulse 60, respirations 14. LUNGS: Decreased breath sounds. No wheezes or rhonchi. ABDOMEN: Soft. No localized tenderness. ASSESSMENT AND PLAN: Abdominal pain is stable. Nausea improved. Diarrhea is stable. 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 Condition explained to the patient. TID: [id number] RECEIPT: [id number]
[2025-08-02] VITALS (7 sets, daily range): BP systolic 110–150; BP diastolic 51–90; PULSE 64–117; RESP 16–19; TEMP 97.6–98.6; O2SAT 97
[2025-08-02] MEDS: CHOLESTYRAMINE PACKET 4 GM PACKET PO SCH (10:23)
--- NOTE | 2025-08-02 12:28 | CONS ---
GASTROENTEROLOGY CONSULTATION NOTE Date of Consultation: Aug 02, 2025 Time of Consultation: 12:24 History of Present Illness: [ 74-year-old female well known to our services with past medical history for diabetes mellitus, hypertension, gastroparesis, hypercholesteremia, achalasia, large hiatal hernia with status post hiatal hernia repair with gastrojejunostomy on 04/21/25 and EGD with botox on 07/29/25 who presented to the emergency room with complaints of abdominal pain. We were consulted for abdominal pain in CBD stricture. CT scan showing central intrahepatic biliary radicle dilation with dilation of the common bile hepatic duct and common bile duct with smooth tapering in the terminal course, concerning for distal CBD stricture. New bilateral pleural effusions with adjacent basal subsegmental atelectasis. New mild ascites and generalized anasarca. Moderate size hiatal hernia. Mild constipation. Bilateral minimal nonspecific perinephric fat stranding. Multifocal sclerotic calcifications of the abdominal aorta and bilateral iliac arteries. MRCP findinges: * Enhancing infiltrative periampullary mass measuring approximately 1.0 x 0.7 x 1.8 cm causing abrupt cut-off of a markedly dilated common bile duct and smooth dilatation of the main pancreatic duct to 0.8 cm (double duct sign), highly suspicious for periampullary malignancy as the cause of high-grade distal common bile duct obstruction. * Intrahepatic and extrahepatic biliary ductal dilatation involving both hepatic lobes, more pronounced on the left, likely secondary to distal obstructing periampullary lesion. * Multiple enlarged periportal and retroperitoneal lymph nodes, worrisome for regional jose metastatic disease. * Large hiatal hernia measuring approximately 7.8 x 4.5 cm. * Bilateral pleural effusions (up to 5 cm AP on the left and 3.3 cm AP on the right) with basilar atelectasis, mild ascites, and diffuse body wall and perinephric edema consistent with anasarca. Patient's WBC 5.9, HGB 11.0, Platelets 201. Chemistries significant for calcium of 8.3, magnesium 1.60, total protein 5.5, albumin 2.3. Total bilirubin AST, ALT, alkaline phosphatase are normal. CA 19-9 elevated at 70. On exam, patient is awake and alert, in no acute distress. Her respirations are unlabored. Abdomen is soft and tender to epigastric region. She reports stools are better today now that she is on Xifaxan MRCP results reviewed with patient and daughter who is on the phone during visit. Recommendations for EUS with biopsy explained dietary recommendations for TPN or PPN have been initiated. All their questions were answered to their satisfaction. Patient agreed to proceed with exam. ] Review of Systems: CONSTITUTIONAL: No malaise or change in sensation of wellbeing. ENMT: No rhinorrhea, otorrhea, sinus pain, ear ache. CARDIOVASCULAR: No angina, palpitations, orthopnea or paroxysmal dyspnea. RESPIRATORY: No SOB. GASTROINTESTINAL: No abdominal pain, nausea, vomiting, diarrhea, hematemesis, melena or change in the patient's habitual bowel movements consistency/number. GENITOURINARY: No dysuria, hematuria or change in bladder continence. MUSCULOSKELETAL: No new muscle pain or decrease in muscular strength. No new joint swelling, redness or tenderness. SKIN: No new rash. Past Medical History: PAST MEDICAL HISTORY: Significant for diabetes mellitus, hypertension, aclasia, gastroparesis, and hypercholesterolemia. PAST SURGICAL HISTORY: Significant for hysterectomy, appendectomy, and cholecystectomy. ALLERGIES: No known drug allergies. MEDICATIONS: The patient takes metoclopramide, esomeprazole, famotidine, prednisone 5 mg daily, atorvastatin 20 mg, losartan 100 mg, atenolol 100 mg, amlodipine 5 mg, and hydroxychloroquine. SOCIAL HISTORY: No history of smoking, alcohol, or substance use. FAMILY HISTORY: The patient lives with the family members. Family history is noncontributory. Coded Allergies: No Known Drug Allergies (Unverified Allergy, Unknown, 07/17/21) Physical Exam: GEN: Awake, alert, oriented in person, time and place, and in no acute distress. HEENT: No rhinorrhea. Oral mucosa is pink, moist and within normal limits. CHEST: Lung auscultation revealed normal breath sounds bilaterally. CARDIAC:Heart sounds are regular. ABD: Soft, non-tender and not distended. No peritoneal signs on palpation. Normal bowel sounds. Last bm 08/02/25 EXT: No cyanosis or clubbing. No edema. SKIN: Intact. No rashes. NEURO: Alert and oriented to name, place and person.No focal motor deficits. Normal speech. Vital Sign (Last 24 Hours) 08/02/25 08/02/25 08:00 12:00 Temp 98.1 Pulse 64 Resp 17 B/P (MAP) 141/71 Pulse Ox 94 O2 Delivery Room Air O2 Flow Rate 0.0 FiO2 21 Intake & Output (last 24hrs) 08/01/25 08/01/25 08/02/25 15:00 23:00 07:00 Intake Total 240 ml 240 ml 700 ml Output Total 500 ml Balance 240 ml -260 ml 700 ml Laboratory: [ ] Laboratory: Test 08/02/25 11:29 08/01/25 05:11 Range/Units Whole Blood Glucose 92 70-110 MG/DL Sodium Level 139 136-145 mmol/L Potassium Level 3.6 3.5-5.1 mmol/L Chloride Level 106 101-111 mmol/L Carbon Dioxide Level 21 21-32 mmol/L Blood Urea Nitrogen 7 7-18 mg/dL Creatinine 0.5 0.5-1.0 mg/dL Glomerular Filtration Rate Calc 99 >90 mL/min Random Glucose 81 70-105 mg/dL Total Calcium 8.3 L 8.5-10.1 mg/dL Magnesium Level 1.60 L 1.80-2.40 mg/dL Total Bilirubin 0.5 0.2-1.0 mg/dL Aspartate Amino Transf (AST/SGOT) 25 10-37 U/L Alanine Aminotransferase (ALT/SGPT) 26 12-78 U/L Alkaline Phosphatase 89 50-136 U/L Total Protein 5.5 L 6.0-8.3 g/dL Albumin 2.3 L 3.5-5.0 g/dL Current Medications Medications (Trade) Dose Ordered Sig/Kunal Route PRN Reason Start Time Stop Time Status Last Admin Dose Admin Atenolol (Atenolol) 100 mg HS PO 07/31/25 21:00 08/30/25 20:59 08/01/25 21:32 100 MG Atorvastatin Calcium (LIPItor 20MG) 20 mg HS PO 07/31/25 21:00 08/30/25 20:59 08/01/25 21:29 20 MG Cholestyramine Resin (Cholestyramine Packet) 4 gm DAILY PO 08/02/25 09:00 09/01/25 08:59 08/02/25 10:23 4 GM Cholestyramine Resin (Cholestyramine Packet) 4 gm ONCE PO 08/01/25 19:00 08/02/25 07:52 DC 08/01/25 19:36 4 GM Home Med (Home Medication) ([Glycopyrrolate 1MG] BID PO 07/31/25 21:00 08/30/25 20:59 Hydromorphone HCl (DiLAUDid 0.5MG INJ) 0.5 mg Q4H PRN IVP SEVERE PAIN (7-10) 07/30/25 23:00 08/01/25 06:34 DC 07/31/25 18:30 0.5 MG Hydromorphone HCl (DiLAUDid 1MG INJ) 0.5 mg Q4H PRN IVP SEVERE PAIN (7-10) 08/01/25 07:00 08/06/25 06:59 08/02/25 10:20 0.5 MG Insulin Human Regular (humuLIN R 100 UNIT/ML 3ML) INSULIN SLIDING SCAL... ACHS SQ 07/31/25 07:30 08/30/25 07:29 Labetalol HCl (TRANdate 20MG SYG) 10 mg Q6H PRN IV >160 SBP 07/31/25 04:00 08/30/25 03:59 Loperamide HCl (Imodium) 2 mg AD PRN PO AFTER EACH LOOSE STOOL 08/01/25 17:30 08/31/25 17:29 08/01/25 17:24 2 MG Losartan Potassium (CozAAR 100MG TAB) 100 mg DAILY PO 08/01/25 09:00 08/31/25 08:59 08/02/25 10:19 100 MG Magnesium Sulfate 50 ml @ 0 mls/hr PROTOCOL PRN IV MAGNESIUM PROTOCOL 07/31/25 06:30 08/30/25 06:29 07/31/25 06:59 125 MLS/HR Metoclopramide HCl (regLAN 10 MG TAB) 10 mg BID PO 07/31/25 21:00 08/30/25 20:59 08/02/25 10:20 10 MG Miscellaneous Medication (Famotidine ) 1 tab DAILY PO 08/01/25 09:00 07/31/25 09:43 DC Ondansetron HCl (zoFRAN 4MG INJ) 4 mg Q4HPRN PRN IVP NAUSEA/VOMITING 07/30/25 23:00 08/29/25 22:59 08/01/25 18:34 4 MG Pantoprazole Sodium (PROTonix 40MG TAB) 40 mg DAILY PO 08/01/25 09:00 08/31/25 08:59 08/02/25 10:19 40 MG Potassium Chloride 100 ml @ 100 mls/hr AD PRN IV POTASSIUM PROTOCOL 07/31/25 06:30 08/30/25 06:29 Potassium Chloride (K-Dur/Klor-Con 20meq) 20 meq AD PRN PO POTASSIUM PROTOCOL 07/31/25 06:30 08/30/25 06:29 Potassium Chloride (KCl 10% Elixir 20meq/15ml) 20 meq AD PRN PO POTASSIUM PROTOCOL 07/31/25 06:30 08/30/25 06:29 08/01/25 07:41 20 MEQ Prednisone (deltaSONE/ oraSONE 5MG) 5 mg DAILY PO 08/01/25 09:00 08/31/25 08:59 08/02/25 10:19 5 MG Sodium Chloride 1,000 ml @ 75 mls/hr [id number] IV 07/30/25 23:00 08/29/25 22:59 08/01/25 15:00 75 MLS/HR Diagnostics / Radiology: [COPY/PASTE HERE IF NO REPORTS PLEASE DELETE SECTION] Assessment: [Abominal pain CBD stricture Abnormal findings on imaging of digestive organs Diabetes mellitus Hiatal hernia s/p repair ] Plan: Case discussed with Dr. Hassan [Clear fluids today NPO After midnight Plan for EUS with FNA in am Obtain stool pcr, fecal elastase, stool c-diff Dietary consult recommendations for TPN Please call with questions, concerns, and change in clinical status Thank you for this consult. JEFF QUINTANILLA Aug 02, 2025 12:28
[2025-08-03] VITALS (21 sets, daily range): BP systolic 109–173; BP diastolic 52–92; PULSE 59–98; RESP 16–18; TEMP 97.5–98.2; O2SAT 98
[2025-08-03 03:51] LABS: IMMATURE GRANULOCYTE ABSOLUTE 0.02 K/uL (0-1); NUCLEATED RED BLOOD CELLS 0.0 % (0.0-0.19); PLATELET COUNT (AUTO) 158 K/uL (130-400); RED BLOOD CELL COUNT(AUTO) 3.42 MIL/uL (4.00-5.50); RED CELL DISTRIBUTION WIDTH 15.9 % (11.0-15.5); WHITE BLOOD COUNT (AUTO) 4.5 K/uL (4.8-10.8)
[2025-08-03 04:27] LABS: ASPARTATE AMINOTRANSFERASE 24.0 U/L (10-37); CREATININE 0.5 mg/dL (0.5-1.0); GLOMERULAR FILTR. RATE CALC 99.0 mL/min (>90); GLUCOSE,RANDOM 70.0 mg/dL (70-105); SODIUM SERUM 139.0 mmol/L (136-145); TOTAL PROTEIN, SERUM 4.9 g/dL (6.0-8.3); UREA NITROGEN, BLOOD 8.0 mg/dL (7-18)
--- NOTE | 2025-08-03 04:55 | PN ---
SUBJECTIVE: The patient had a MRCP done, was found to have periampullary mass suspicious for malignancy. The patient is n.p.o. The patient is currently pending GI input to decide further workup or not. She is currently comfortable, afebrile. No fever or chills. No nausea or vomiting. No dysuria or urgency. OBJECTIVE: GENERAL: Currently awake, alert. Oriented in person, time, place. Not in distress. VITAL SIGNS: In the chart. HEENT: Normocephalic, atraumatic. LUNGS: Clear to auscultation. HEART: S1, S2 are distant. ABDOMEN: Soft, nontender. LABORATORY DATA: Reviewed. 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 * Hypertension, controlled. * Pulmonary nodule, continue to monitor. * Follow up in a.m. with results, patient of Dr. Bosch. DOS: 08/02/2025 TID: [id number] RECEIPT: [id number] [facility]
[2025-08-03] MEDS ORDERED: LIDOCAINE PF 100MG/5ML (2%) SYRINGE 5ML ONE (10:36)
[2025-08-03] MEDS ORDERED: GLYCOPYRROLATE 0.2 MG/ML 5 ML VIAL ONE (10:38)
--- NOTE | 2025-08-03 11:52 | NUR ---
patient retuned to room from EUS, alert and oriented x 4. denies any needs or discomfort at this time.
--- NOTE | 2025-08-03 14:46 | NUR ---
SACRAL PAIN: PATIENT REPORTING PAIN OF 9/[address] GLASGOW AND ADVISED OF REPORTED FALL OR TRAUMA TO SACRAL AREA DURING DIAGNOSTIC PROCEDURE A FEW DAYS AGO. WHEN QUESTIONING THE PATIENT ABOUT THE EVENT, SHE ASKED TO BE LEFT TO SPEAK WITH HER GUEST SERVICE SUPERVISOR AT BEDSIDE PRIOR TO ANSWERING QUESTIONS. X-RAY OF AFFECTED AREA TO BE ORDERED ONCE PATIENT IS AVAILABLE.
--- NOTE | 2025-08-03 20:40 | NUR ---
REFUSING PICC PLACEMENT: EDUCATED PATIENT ON ORDERS FOR CENTRAL LINE PLACEMENT FOR TPN ORDERED BY GI. PATIENT REFUSED DUE TO WANTING TO GO HOME TOMORROW. EXPLAINED ORDERS IN PLACE FOR CM TO ALSO WORK ON TPN ADMINISTRATION @ HOME. PATIENT PREFERRED TO RECEIVE SCHEDULED PPN TONIGHT AND SEE IF TPN OUTPATIENT COULD BE SET UP TOMORROW TO GUARANTEE HER RELEASE TOMORROW, OTHERWISE CHOSES TO LEAVE WITHOUT. REPORTED PATIENTS REFUSAL AND REQUESTS TO LEAVE TOMORROW TO NIGHT NURSE.
[2025-08-03] MEDS: M.V.I. IV [ADULT] 10 ML, MULTITRACE-4 ADULT 10ML VIAL 3 ML in CLINIMIX-E4.25%AA/D5+LYT2... IV ONE (22:00)
--- NOTE | 2025-08-03 22:50 | PN ---
GASTROENTEROLOGY PROGRESS NOTE Date of Visit: Aug 03, 2025 Time of Visit: 22:41 Events / Notes: [ The patient underwent an egd and was found to have tight GE junction, hernia, normal ampulla. EUS unable to be advance from GE junction. Dr. Hassan and Dr. Eden consulted and recommended EGD with pneumatic dilation. Patient informed of recommendations and the patient verbalized request to be discharged home. Informed patient we can schedule f/u next week at [facility] to plan for procedure. Patient and daughter agreed. ] Review of Systems: CONSTITUTIONAL: No malaise or change in sensation of wellbeing. ENMT: No rhinorrhea, otorrhea, sinus pain, ear ache. CARDIOVASCULAR: No angina, palpitations, orthopnea or paroxysmal dyspnea. RESPIRATORY: No SOB. GASTROINTESTINAL: No abdominal pain, nausea, vomiting, diarrhea, hematemesis, melena or change in the patient's habitual bowel movements consistency/number. GENITOURINARY: No dysuria, hematuria or change in bladder continence. MUSCULOSKELETAL: No new muscle pain or decrease in muscular strength. No new joint swelling, redness or tenderness. SKIN: No new rash. Physical Exam: GEN: Awake, alert, oriented in person, time and place, and in no acute distress. HEENT: No rhinorrhea. Oral mucosa is pink, moist and within normal limits. CHEST: Lung auscultation revealed normal breath sounds bilaterally. CARDIAC:Heart sounds are regular. ABD: Soft, non-tender and not distended. No peritoneal signs on palpation. Normal bowel sounds. Last bm 08/02/25 EXT: No cyanosis or clubbing. No edema. SKIN: Intact. No rashes. NEURO: Alert and oriented to name, place and person.No focal motor deficits. Normal speech. Vital Signs (last 8hr) Date Time Temp Pulse Resp B/P (MAP) Pulse Ox O2 Delivery O2 Flow Rate FiO2 08/03/25 20:36 59 151/62 08/03/25 20:16 97.5 59 18 151/62 98 Room Air 21 08/03/25 18:54 66 18 166/87 99 Room Air 08/03/25 17:54 65 18 152/78 98 Room Air 08/03/25 17:44 71 18 152/79 98 Room Air 08/03/25 16:54 65 17 148/68 100 Room Air 08/03/25 15:54 62 18 140/74 98 Room Air 08/03/25 14:54 73 18 173/92 99 Room Air Laboratory: [ ] Laboratory: Test 08/03/25 20:04 08/03/25 03:40 Range/Units Whole Blood Glucose 64 L 70-110 MG/DL White Blood Count 4.5 L 4.8-10.8 K/uL Red Blood Count 3.42 L 4.00-5.50 MIL/uL Hemoglobin 9.6 L 12.0-16.0 g/dL Hematocrit 30.6 L 36-48 % Mean Corpuscular Volume 89.5 79-99 fL Mean Corpuscular Hemoglobin 28.1 27.0-33.0 pg Mean Corpuscular Hemoglobin Concent 31.4 L 32.0-36.0 g/dL Red Cell Distribution Width 15.9 H 11.0-15.5 % Platelet Count 158 130-400 K/uL Mean Platelet Volume 9.0 7.5-10.5 fL Immature Granulocyte % (Auto) 0.4 0-1 % Neutrophils (%) (Auto) 57.4 40.0-77.0 % Lymphocytes (%) (Auto) 31.2 21.0-51.0 % Monocytes (%) (Auto) 9.6 3.0-13.0 % Eosinophils (%) (Auto) 0.7 0.0-8.0 % Basophils (%) (Auto) 0.7 0.0-5.0 % Neutrophils # (Auto) 2.6 1.8-7.7 K/uL Lymphocytes # (Auto) 1.4 1.0-4.8 K/uL Monocytes # (Auto) 0.4 0.1-1.0 K/uL Eosinophils # (Auto) 0.03 0.00-0.70 K/uL Basophils # (Auto) 0.03 0.00-0.20 K/uL Absolute Immature Granulocyte (auto 0.02 0-1 K/uL Nucleated Red Blood Cells 0.0 0.0-0.19 % Sodium Level 139 136-145 mmol/L Potassium Level 3.2 L 3.5-5.1 mmol/L Chloride Level 108 101-111 mmol/L Carbon Dioxide Level 21 21-32 mmol/L Blood Urea Nitrogen 8 7-18 mg/dL Creatinine 0.5 0.5-1.0 mg/dL Glomerular Filtration Rate Calc 99 >90 mL/min Random Glucose 70 70-105 mg/dL Total Calcium 7.6 L 8.5-10.1 mg/dL Total Bilirubin 0.4 0.2-1.0 mg/dL Aspartate Amino Transf (AST/SGOT) 24 10-37 U/L Alanine Aminotransferase (ALT/SGPT) 20 12-78 U/L Alkaline Phosphatase 66 50-136 U/L Total Protein 4.9 L 6.0-8.3 g/dL Albumin 2.0 L 3.5-5.0 g/dL Current Medications Medications (Trade) Dose Ordered Sig/Kunal Route PRN Reason Start Time Stop Time Status Last Admin Dose Admin Atenolol (Atenolol) 100 mg HS PO 07/31/25 21:00 08/30/25 20:59 08/03/25 20:36 100 MG Atorvastatin Calcium (LIPItor 20MG) 20 mg HS PO 07/31/25 21:00 08/30/25 20:59 08/03/25 20:35 20 MG Cholestyramine Resin (Cholestyramine Packet) 4 gm DAILY PO 08/02/25 09:00 09/01/25 08:59 08/03/25 13:20 4 GM Cholestyramine Resin (Cholestyramine Packet) 4 gm ONCE PO 08/01/25 19:00 08/02/25 07:52 DC 08/01/25 19:36 4 GM Home Med (Home Medication) ([Glycopyrrolate 1MG] BID PO 07/31/25 21:00 08/30/25 20:59 Hydromorphone HCl (DiLAUDid 0.5MG INJ) 0.5 mg Q4H PRN IVP SEVERE PAIN (7-10) 07/30/25 23:00 08/01/25 06:34 DC 07/31/25 18:30 0.5 MG Hydromorphone HCl (DiLAUDid 1MG INJ) 0.5 mg Q4H PRN IVP SEVERE PAIN (7-10) 08/01/25 07:00 08/06/25 06:59 08/03/25 22:02 0.5 MG Insulin Human Regular (humuLIN R 100 UNIT/ML 3ML) INSULIN SLIDING SCAL... ACHS SQ 07/31/25 07:30 08/30/25 07:29 Labetalol HCl (TRANdate 20MG SYG) 10 mg Q6H PRN IV >160 SBP 07/31/25 04:00 08/30/25 03:59 Loperamide HCl (Imodium) 2 mg AD PRN PO AFTER EACH LOOSE STOOL 08/01/25 17:30 08/31/25 17:29 08/03/25 20:35 2 MG Losartan Potassium (CozAAR 100MG TAB) 100 mg DAILY PO 08/01/25 09:00 08/31/25 08:59 08/02/25 10:19 100 MG Magnesium Sulfate 50 ml @ 0 mls/hr PROTOCOL PRN IV MAGNESIUM PROTOCOL 07/31/25 06:30 08/30/25 06:29 07/31/25 06:59 125 MLS/HR Metoclopramide HCl (regLAN 10 MG TAB) 10 mg BID PO 07/31/25 21:00 08/30/25 20:59 08/03/25 20:35 10 MG Miscellaneous Medication (Famotidine ) 1 tab DAILY PO 08/01/25 09:00 07/31/25 09:43 DC Ondansetron HCl (zoFRAN 4MG INJ) 4 mg Q4HPRN PRN IVP NAUSEA/VOMITING 07/30/25 23:00 08/29/25 22:59 08/01/25 18:34 4 MG Pantoprazole Sodium (PROTonix 40MG TAB) 40 mg DAILY PO 08/01/25 09:00 08/31/25 08:59 08/02/25 10:19 40 MG Potassium Chloride 100 ml @ 100 mls/hr AD PRN IV POTASSIUM PROTOCOL 07/31/25 06:30 08/30/25 06:29 Potassium Chloride (K-Dur/Klor-Con 20meq) 20 meq AD PRN PO POTASSIUM PROTOCOL 07/31/25 06:30 08/30/25 06:29 Potassium Chloride (KCl 10% Elixir 20meq/15ml) 20 meq AD PRN PO POTASSIUM PROTOCOL 07/31/25 06:30 08/30/25 06:29 08/01/25 07:41 20 MEQ Prednisone (deltaSONE/ oraSONE 5MG) 5 mg DAILY PO 08/01/25 09:00 08/31/25 08:59 08/02/25 10:19 5 MG Sodium Chloride 1,000 ml @ 75 mls/hr [id number] IV 07/30/25 23:00 08/29/25 22:59 08/01/25 15:00 75 MLS/HR Diagnostics / Radiology: [COPY/PASTE HERE IF NO REPORTS PLEASE DELETE SECTION] Assessment: [Abominal pain CBD stricture Abnormal findings on imaging of digestive organs Diabetes mellitus Hiatal hernia s/p repair ] Plan: Case discussed with Dr. Hassan [Clear fluids today Obtain stool pcr, fecal elastase, stool c-diff Dietary consult recommendations for TPN Patient will require TPN for at least 90 days supplementation. Please call with questions, concerns, and change in clinical status Thank you for this consult. JEFF QUINTANILLA Aug 03, 2025 22:50
[2025-08-04] VITALS (24 sets, daily range): BP systolic 131–178; BP diastolic 60–90; PULSE 61–85; RESP 16–19; TEMP 97.6–98.5; O2SAT 98–100
--- NOTE | 2025-08-04 06:38 | HMCIMG ---
EXAM: CR Sacrum and Coccyx, 3 View. CLINICAL HISTORY: sacral pain COMPARISON: None provided. FINDINGS: BONES: No acute fracture or aggressive appearing osseous lesion. Bony alignment is anatomic. Mild degenerative changes at the hip joints. SOFT TISSUES: The soft tissues are unremarkable. IMPRESSION: No acute osseous abnormality. /[place]
--- NOTE | 2025-08-04 08:42 | NUR ---
PATIENT SPOKE WITH DR. GLASGOW AND MENTIONED PATIENT WANTING TO LEAVE AMA. OK PER PATIENT SIGNED AMA. IV HAS BEEN REMOVED WELL.
--- NOTE | 2025-08-04 09:21 | NUR ---
LONG DISCUSSION AT BEDSIDE WITH PATIENT AND DTR, EXPRSING THEIR FRUSTRATION WITH ONGOING CHRONIC ILLNESS AND THE DIFFICULTY GETTING THE NUTRITION AT HOME PATIENT DID NOT WANT TO GET PICC LINE PLACED. WANTS TO GO HOME FOR BELKYS DAUGHTER STATES WILL TRY TO GET DR LANDEROS TO SET UP PICC TPN AND HH FORM HIS OFFICE. ADISED HER THAT IT MAY TAKE SEVERAL DAYS, UP TO A WEEK TO SET UP, MAYBE LONGER BC OF THE HOLIDAYS. LEFT NUMBER AND NAME . ADVISD DTR THAT WILL WORK W DR. BANERJEE FOR ANY NEEDS RECORDS ON THIS END TO ASSIST. ADVISED PT AND DTR TO RETURN IF SYMPTOMS WORSEN. PATIENT STATES SHE CAN EAT BY MOUTH
--- NOTE | 2025-08-04 10:08 | NUR ---
AT 0931 PATIENT DECIDED TO STAY AFTER SIGNING AMA FORM. PT IS IN BED, DISCUSSED WITH PATIENT IN REGARDS TO PICC LINE PLACEMENT AND PATIENT HAS AGREED TO HAVE THE PICC LINE INSERTED.
--- NOTE | 2025-08-04 10:10 | PN ---
GASTROENTEROLOGY PROGRESS NOTE Date of Visit: Aug 04, 2025 Time of Visit: 10:09 Events / Notes: [ The patient underwent an egd and was found to have tight GE junction, hernia, normal ampulla. EUS unable to be advance from GE junction. Dr. Hassan and Dr. Eden consulted and recommended EGD with pneumatic dilation. Patient informed of recommendations and the patient verbalized request to be discharged home. Informed patient we can schedule f/u next week at [facility] to plan for procedure. Patient and daughter agreed. 08/04/25: VSS. Patient is WBC of 4.5, hemoglobin 9.6, platelets 158. Potassium of 3.2, calcium 7.6, total protein 4.9 and albumin 2.0. Patient had x-ray of sacrum and coccyx which were normal. ] Review of Systems: CONSTITUTIONAL: No malaise or change in sensation of wellbeing. ENMT: No rhinorrhea, otorrhea, sinus pain, ear ache. CARDIOVASCULAR: No angina, palpitations, orthopnea or paroxysmal dyspnea. RESPIRATORY: No SOB. GASTROINTESTINAL: No abdominal pain, nausea, vomiting, diarrhea, hematemesis, melena or change in the patient's habitual bowel movements consistency/number. GENITOURINARY: No dysuria, hematuria or change in bladder continence. MUSCULOSKELETAL: No new muscle pain or decrease in muscular strength. No new joint swelling, redness or tenderness. SKIN: No new rash. Physical Exam: GEN: Awake, alert, oriented in person, time and place, and in no acute distress. HEENT: No rhinorrhea. Oral mucosa is pink, moist and within normal limits. CHEST: Lung auscultation revealed normal breath sounds bilaterally. CARDIAC:Heart sounds are regular. ABD: Soft, non-tender and not distended. No peritoneal signs on palpation. Normal bowel sounds. Last bm 08/02/25 EXT: No cyanosis or clubbing. No edema. SKIN: Intact. No rashes. NEURO: Alert and oriented to name, place and person.No focal motor deficits. Normal speech. Vital Signs (last 8hr) Date Time Temp Pulse Resp B/P (MAP) Pulse Ox O2 Delivery O2 Flow Rate FiO2 08/04/25 08:34 100 Room Air* 0 21 08/04/25 08:00 97.7 61 16 157/71 100 Room Air 08/04/25 03:58 97.7 62 19 162/75 99 Room Air 21 Laboratory: [ ] Laboratory: Test 08/04/25 05:14 08/03/25 03:40 Range/Units Whole Blood Glucose 110 # 70-110 MG/DL White Blood Count 4.5 L 4.8-10.8 K/uL Red Blood Count 3.42 L 4.00-5.50 MIL/uL Hemoglobin 9.6 L 12.0-16.0 g/dL Hematocrit 30.6 L 36-48 % Mean Corpuscular Volume 89.5 79-99 fL Mean Corpuscular Hemoglobin 28.1 27.0-33.0 pg Mean Corpuscular Hemoglobin Concent 31.4 L 32.0-36.0 g/dL Red Cell Distribution Width 15.9 H 11.0-15.5 % Platelet Count 158 130-400 K/uL Mean Platelet Volume 9.0 7.5-10.5 fL Immature Granulocyte % (Auto) 0.4 0-1 % Neutrophils (%) (Auto) 57.4 40.0-77.0 % Lymphocytes (%) (Auto) 31.2 21.0-51.0 % Monocytes (%) (Auto) 9.6 3.0-13.0 % Eosinophils (%) (Auto) 0.7 0.0-8.0 % Basophils (%) (Auto) 0.7 0.0-5.0 % Neutrophils # (Auto) 2.6 1.8-7.7 K/uL Lymphocytes # (Auto) 1.4 1.0-4.8 K/uL Monocytes # (Auto) 0.4 0.1-1.0 K/uL Eosinophils # (Auto) 0.03 0.00-0.70 K/uL Basophils # (Auto) 0.03 0.00-0.20 K/uL Absolute Immature Granulocyte (auto 0.02 0-1 K/uL Nucleated Red Blood Cells 0.0 0.0-0.19 % Sodium Level 139 136-145 mmol/L Potassium Level 3.2 L 3.5-5.1 mmol/L Chloride Level 108 101-111 mmol/L Carbon Dioxide Level 21 21-32 mmol/L Blood Urea Nitrogen 8 7-18 mg/dL Creatinine 0.5 0.5-1.0 mg/dL Glomerular Filtration Rate Calc 99 >90 mL/min Random Glucose 70 70-105 mg/dL Total Calcium 7.6 L 8.5-10.1 mg/dL Total Bilirubin 0.4 0.2-1.0 mg/dL Aspartate Amino Transf (AST/SGOT) 24 10-37 U/L Alanine Aminotransferase (ALT/SGPT) 20 12-78 U/L Alkaline Phosphatase 66 50-136 U/L Total Protein 4.9 L 6.0-8.3 g/dL Albumin 2.0 L 3.5-5.0 g/dL Current Medications Medications (Trade) Dose Ordered Sig/Kunal Route PRN Reason Start Time Stop Time Status Last Admin Dose Admin Atenolol (Atenolol) 100 mg HS PO 07/31/25 21:00 08/30/25 20:59 08/03/25 20:36 100 MG Atorvastatin Calcium (LIPItor 20MG) 20 mg HS PO 07/31/25 21:00 08/30/25 20:59 08/03/25 20:35 20 MG Cholestyramine Resin (Cholestyramine Packet) 4 gm DAILY PO 08/02/25 09:00 09/01/25 08:59 08/04/25 08:34 4 GM Cholestyramine Resin (Cholestyramine Packet) 4 gm ONCE PO 08/01/25 19:00 08/02/25 07:52 DC 08/01/25 19:36 4 GM Home Med (Home Medication) ([Glycopyrrolate 1MG] BID PO 07/31/25 21:00 08/30/25 20:59 08/04/25 08:40 1 EACH Hydromorphone HCl (DiLAUDid 0.5MG INJ) 0.5 mg Q4H PRN IVP SEVERE PAIN (7-10) 07/30/25 23:00 08/01/25 06:34 DC 07/31/25 18:30 0.5 MG Hydromorphone HCl (DiLAUDid 1MG INJ) 0.5 mg Q4H PRN IVP SEVERE PAIN (7-10) 08/01/25 07:00 08/06/25 06:59 08/03/25 22:02 0.5 MG Insulin Human Regular (humuLIN R 100 UNIT/ML 3ML) INSULIN SLIDING SCAL... ACHS SQ 07/31/25 07:30 08/30/25 07:29 Labetalol HCl (TRANdate 20MG SYG) 10 mg Q6H PRN IV >160 SBP 07/31/25 04:00 08/30/25 03:59 Loperamide HCl (Imodium) 2 mg AD PRN PO AFTER EACH LOOSE STOOL 08/01/25 17:30 08/31/25 17:29 08/03/25 20:35 2 MG Losartan Potassium (CozAAR 100MG TAB) 100 mg DAILY PO 08/01/25 09:00 08/31/25 08:59 08/04/25 08:34 100 MG Magnesium Sulfate 50 ml @ 0 mls/hr PROTOCOL PRN IV MAGNESIUM PROTOCOL 07/31/25 06:30 08/30/25 06:29 07/31/25 06:59 125 MLS/HR Metoclopramide HCl (regLAN 10 MG TAB) 10 mg BID PO 07/31/25 21:00 08/30/25 20:59 08/04/25 08:34 10 MG Miscellaneous Medication (Famotidine ) 1 tab DAILY PO 08/01/25 09:00 07/31/25 09:43 DC Ondansetron HCl (zoFRAN 4MG INJ) 4 mg Q4HPRN PRN IVP NAUSEA/VOMITING 07/30/25 23:00 08/29/25 22:59 08/01/25 18:34 4 MG Pantoprazole Sodium (PROTonix 40MG TAB) 40 mg DAILY PO 08/01/25 09:00 08/31/25 08:59 08/04/25 08:34 40 MG Potassium Chloride 100 ml @ 100 mls/hr AD PRN IV POTASSIUM PROTOCOL 07/31/25 06:30 08/30/25 06:29 Potassium Chloride (K-Dur/Klor-Con 20meq) 20 meq AD PRN PO POTASSIUM PROTOCOL 07/31/25 06:30 08/30/25 06:29 Potassium Chloride (KCl 10% Elixir 20meq/15ml) 20 meq AD PRN PO POTASSIUM PROTOCOL 07/31/25 06:30 08/30/25 06:29 08/04/25 06:38 20 MEQ Prednisone (deltaSONE/ oraSONE 5MG) 5 mg DAILY PO 08/01/25 09:00 08/31/25 08:59 08/04/25 08:34 5 MG Sodium Chloride 1,000 ml @ 75 mls/hr [id number] IV 07/30/25 23:00 08/29/25 22:59 08/01/25 15:00 75 MLS/HR Diagnostics / Radiology: [COPY/PASTE HERE IF NO REPORTS PLEASE DELETE SECTION] Assessment: [Abominal pain CBD stricture Abnormal findings on imaging of digestive organs Diabetes mellitus Hiatal hernia s/p repair ] Plan: Case discussed with Dr. Hassan and Dr. Eden [Keep NPO Plan for EGD with dilation today at 1630 Dietary consult recommendations for TPN Patient will require TPN for at least 90 days supplementation. Please call with questions, concerns, and change in clinical status Patient has f/u at [facility] on 08/16/25. Thank you for this consult. JEFF QUINTANILLA Aug 04, 2025 10:10
[2025-08-04 11:35] LABS: INR 1.04 (0.85-1.15)
--- NOTE | 2025-08-04 11:38 | PN ---
SUBJECTIVE: The patient is scheduled to have EGD with an EUS today. No fever or chills. No chest pain. No nausea or vomiting. OBJECTIVE: GENERAL: Currently awake, alert, oriented to person, time, and place. VITAL SIGNS: Vital signs in the chart. HEENT: Normocephalic, atraumatic. LUNGS: Clear to auscultation. HEART: S1, S2 are distant. ABDOMEN: Soft, nontender. LABORATORY DATA: WBC count 4.5, hemoglobin 9.6, platelets 158,000. Sodium 139, potassium 3.2, BUN 8, creatinine 0.5, calcium 7.6, albumin 2, total protein 4.9. 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 * Hypertension: Controlled. * Pulmonary nodule: Continue to monitor. * Follow up with results. DOS: 08/03/2025 TID: [id number] RECEIPT: [id number] [facility]
--- NOTE | 2025-08-04 14:00 | NUR ---
CONTACT QUINTANILLA RE TPN PRDER. 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 ADVISED IT IS A LONG PROCESS.
--- NOTE | 2025-08-04 14:37 | HMCIMG ---
STUDY CR chest, 1 view CLINICAL HISTORY PICC line placement TECHNIQUE Single frontal radiograph of the chest was obtained. COMPARISON CR chest 1 view dated 03/08/25 21:15 EDT. FINDINGS Lungs The lungs are clear without focal consolidation, pulmonary edema, or acute airspace disease. No suspicious pulmonary nodule is identified. Pleural spaces A small left pleural effusion is present. No pneumothorax is seen. Mediastinum and heart The cardiomediastinal silhouette is within normal limits for this technique. Devices A right upper extremity peripherally inserted central catheter is present with the tip projecting over the region of the right subclavian vein, proximal to the expected cavoatrial junction. No catheter kinking or discontinuity is identified. Bones and soft tissues No acute or aggressive osseous abnormality is identified. Visualized soft tissues are unremarkable. IMPRESSION * Right upper extremity PICC with tip projecting over the right subclavian vein, proximal to the cavoatrial junction; if long-term central access is required, consider repositioning under fluoroscopic or ultrasound guidance to the lower superior vena cava. * Small left pleural effusion without associated focal consolidation or pneumothorax. * No radiographic evidence of acute pulmonary parenchymal disease. /[place]
--- NOTE | 2025-08-04 15:24 | HMCIMG ---
EXAM: CR Chest, 2 View. CLINICAL HISTORY: PICC LINE PLACEMENT COMPARISON: 08/04 13:35 EST FINDINGS: LUNGS: The lungs show no infiltrate or other acute finding. PLEURAL SPACES: Small right pleural effusion. MEDIASTINUM: Cardiac size and mediastinal contours within normal limits. BONES: No aggressive appearing osseous lesion seen. MISCELLANEOUS: Interval placement of a left-sided PICC line with tip in the inferior superior vena cava. IMPRESSION: Interval placement of a left-sided PICC line with tip in the inferior superior vena cava. Removal of the right-sided PICC line. Small right pleural effusion. There is prominence of the deep sulcus on the left, with preserved lung markings. A pneumothorax is considered unlikely. Recommend repeat chest x-ray in 1 hour for definitive confirmation. /Vitaliy
[2025-08-04] MEDS ORDERED: LIDOCAINE PF 100MG/5ML (2%) SYRINGE 5ML ONE (16:07)
[2025-08-04] MEDS ORDERED: SUCCINYLCHOLINE CHLORIDE 20 MG/ML 10 ML VIAL ONE (16:22)
[2025-08-04] MEDS ORDERED: IOHEXOL-350 50ML VIAL IV ONE (16:57)
[2025-08-04] MEDS ORDERED: PHARMACY COMMUNICATION MISC SCH (17:30)
[2025-08-04 18:51] LABS: ASPARTATE AMINOTRANSFERASE 28.0 U/L (10-37); CREATININE 0.6 mg/dL (0.5-1.0); GLOMERULAR FILTR. RATE CALC 95.0 mL/min (>90); GLUCOSE,RANDOM 91.0 mg/dL (70-105); LDL DIRECT 46.0 mg/dL (0-99); PHOSPHORUS 3.3 mg/dL (2.5-4.9); SODIUM SERUM 137.0 mmol/L (136-145); TOTAL PROTEIN, SERUM 5.5 g/dL (6.0-8.3); UREA NITROGEN, BLOOD 8.0 mg/dL (7-18)
[2025-08-05] VITALS (8 sets, daily range): BP systolic 109–168; BP diastolic 52–76; PULSE 70–85; RESP 16–18; TEMP 97.5–98.2; O2SAT 97–99
[2025-08-05] MEDS ORDERED: M.V.I. IV [ADULT] 10 ML, MULTITRACE-4 ADULT 10ML VIAL 3 ML in CLINIMIX-E 5%AA /D15%W 2... IV ONE (09:00)
[2025-08-05] MEDS: M.V.I. IV [ADULT] 10 ML, MULTITRACE-4 ADULT 10ML VIAL 3 ML in CLINIMIX-E 5%AA /D15%W 2... IV NR (10:13)
--- NOTE | 2025-08-05 15:45 | PN ---
SUBJECTIVE: The patient had an EGD with dilation yesterday; normal findings. The patient tolerated the procedure without any complications. She is currently comfortable, afebrile, complaining of sacroiliac area pain. OBJECTIVE: GENERAL: Currently, awake, alert, oriented in person, time and place, not in distress. VITAL SIGNS: Blood pressure is 142/76, pulse 72, respirations 16. HEENT: Normocephalic, atraumatic. LUNGS: Clear to auscultation. HEART: S1, S2 are distant. ABDOMEN: Soft, nontender. EXTREMITIES: No clubbing or cyanosis. LABORATORY DATA: The sacrococcyx x-ray showed no evidence of any fractures but degenerative changes at the hip joint. Chest x-ray from yesterday shows PICC line placement in the superior vena cava, a small right pleural effusion. ASSESSMENT AND PLAN: * Esophageal stricture, status post EGD with dilation. Normal report. Continue recommendations by Gastroenterology. * Ampulla of Vater mass. Continue recommendation by Gastroenterology. * Hypertension. Continue current treatment. * Pulmonary nodule. Continue to monitor. * Sacroiliac pain. No evidence of fracture. Continue with Dilaudid. The patient is going to need to have analgesics on discharge. * The patient is going to be started on total parenteral nutrition as per Gastroenterology recommendations and apparently is also planned to continue with total parenteral nutrition at home, arrangement might need to be made by Gastroenterology. DOS: 08/05/2025 TID: [id number] RECEIPT: [id number] [facility]
--- NOTE | 2025-08-05 16:00 | NUR ---
PKT SENT TO [facility] VIA EMIAL WITH SIGNED COPIED OF TPN ORDERS AND PROGRESS NTOES
[2025-08-05] MEDS: HYDROcodone/APAP 5/325 1 TAB TABLET PO ONE (22:03)
[2025-08-06 00:03] VITALS: BP 140/67; PULSE 67; RESP 18; TEMP 98
[2025-08-06 04:20] VITALS: BP 126/60; PULSE 72; RESP 18; TEMP 98
[2025-08-06 07:44] VITALS: BP 148/68; PULSE 62; RESP 16; TEMP 97.8
[2025-08-06 08:00] VITALS: O2SAT 97
[2025-08-06 11:26] VITALS: BP 153/72; PULSE 70; RESP 18; TEMP 98.1
--- NOTE | 2025-08-06 11:30 | NUR ---
UPDATE ON DISCHARGE PLANNING- ADVISED PATIENT THAT CM WAS WORKING ON TPN AT HOME WITH HOME [facility] / JOHNY ADVISED HER THAT IT WAS A PROCESS AND AFTER IT WAS APPROVED ON [facility]ANE[facility], A PRESCRIPTION WAS GENERATED THAT NEEDED A SIGNATURE IN ORDER TO FILL. PATIENT STATES THAT HER SON IS A GOOD FRIEND OF EMILY RILEY SO SHE COULD GET HER TO SIGN IT. ADVISED HER THAT IT MAY TAKE TIME
--- NOTE | 2025-08-06 11:30 | HMCIMG ---
CHEST FLUOROSCOPY INDICATION: ABNORMAL FINDINGSON IMAGIGN 4 C-arm images from intraoperative film of the lateral view of the chest.. Fluoroscopy time: 1 minute 38 seconds. IMPRESSION: Details of the finding in the procedure note
--- NOTE | 2025-08-06 11:30 | NUR ---
SPOKE TO DR. GLASGOW IN THE HALLWAY. HE STATES HE WOULD NOT SIGN ANY TPN OR HH FOR TPN ORDER AND THTAT WOULD HAVE TO BE OBTAINED FROM THE GI .
--- NOTE | 2025-08-06 14:45 | NUR ---
CHANGE IN PLAN ADVANCING DIET, IF TOLERATES FULL LIQUIDS NOW CAN GO HOME TODAY PER DR. MONSON. CM TO CONTINUE TO WORK ON TPN TO SEE IF APPROVED AFTER DISCHARGE
[2025-08-06 15:33] VITALS: BP 146/70; PULSE 68; RESP 18; TEMP 98
[2025-08-06] MEDS ORDERED: CHOL4POW4 PO (15:51)
--- NOTE | 2025-08-06 16:16 | NUR ---
DC ORDERS ENTERED FOR DR. MONSON PATIENT MET PARAMETERS PT TO FOLLOW UP WITH [facility] ON SATURDAY FOR APPOINTMENT, CM TO CONTINUE TO WORK ON CONFIRMATION OR DENIAL OF TPN OUT PATIENT FAMILY MADE AWARE. PABLO CALLED IN TO PHARMACY
--- NOTE | 2025-08-06 18:23 | NUR ---
DISCHARGE NOTES Discharge instructions, medications, and follow up appointments reviewed with patient and son present at bedside. Personal items packed and taken with family. Patient taken down via wheelchair to private car.
[2025-08-06] MEDS ORDERED: FAT EMULSIONS 20% 250ML 250 ML IV SCH (18:30)
--- NOTE | 2025-08-07 00:32 | PN ---
SUBJECTIVE: This is a late entry for a visit on 08/04. The patient was scheduled to be discharged after the endoscopy. EGD could not be finished due to esophageal obstruction. The patient was scheduled to be discharged and have the EGD scheduled as an outpatient. Apparently, after discussion with the patient, GI had the procedure done later today. OBJECTIVE: GENERAL: The patient at the time of exam was awake, alert, oriented in person, time, place, not in distress. VITAL SIGNS: In the chart. HEENT: Normocephalic, atraumatic. LUNGS: Clear to auscultation. HEART: S1, S2 are distant. ABDOMEN: Soft and nontender. 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 * Hypertension, controlled. * Pulmonary nodule. Continue to monitor. This is a diction for a visit on 08/04. DOS: 08/06/2025 TID: [id number] RECEIPT: [id number] [facility]
== END 2025-08-06 18:40 | disposition home or self-care (01) | DRG 391 ==
LOC: EDH 17:04 → EDHIP 22:41 → 4AH 23:56
PROVIDERS: ADMIT Family Medicine; ATTEND Family Medicine
PROC: 0DJ08ZZ Inspection of Upper Intestinal Tract, Via Natural or Artificial Opening Endoscopic (ICD-10-PCS; principal; 2025-08-03)
PROC: 0D758ZZ Dilation of Esophagus, Via Natural or Artificial Opening Endoscopic (ICD-10-PCS; 2025-08-04)
DX: K22.2 Esophageal obstruction (principal); K83.1 Obstruction of bile duct; J90 Pleural effusion, not elsewhere classified; K22.0 Achalasia of cardia; I10 Essential (primary) hypertension; E11.43 Type 2 diabetes mellitus with diabetic autonomic (poly)neuropathy; R18.8 Other ascites; J98.11 Atelectasis; R91.1 Solitary pulmonary nodule; K44.9 Diaphragmatic hernia without obstruction or gangrene; E78.00 Pure hypercholesterolemia, unspecified; M53.3 Sacrococcygeal disorders, not elsewhere classified; K59.00 Constipation, unspecified; K22.89 Other specified disease of esophagus; Z90.710 Acquired absence of both cervix and uterus
CPT/HCPCS: 36415; 43220; 43235; 43237; 71045; 72220; 74176; 74183; 76000; 80048; 80053; 80061; 80076; 81001; 82150; 82948; 83690; 83735; 84100; 85025; 85610; 85730; 86316; 96361; 96374; 96375; 99285; A4606; G0378; J0330; J0360; J1100; J1171; J1815; J1885; J2003; J2270; J2405; J2704; J2765; J3010; J3475; J3480; J3490; J7030; J7512; Q9967; A4215; A4221; A4222; A4223; A4620; A4657; A4663; A7002; A9575